=== PATIENT | female | born 1950 | race Caucasian/White ===

== ENCOUNTER 2021-02-17 08:22 | Inpatient (IN) ==
--- NOTE | 2021-02-13 13:48 | PAT Medication Instructions ---
Medication Instructions Date of Service February 13, 2021 Home Medications atenolol 25 mg tablet 25 mg PO BID famotidine 10 mg tablet (Acid Card Maker (famotidine)) 10 mg PO QAM levothyroxine 25 mcg capsule 12.5 mcg PO Q OTHER DAY lisinopril 5 mg tablet 5 mg PO QAM donepezil 5 mg tablet (Aricept) 5 mg PO QAM mirtazapine 15 mg tablet 15 mg PO HS simvastatin 20 mg tablet 20 mg PO PM Continue as directed levothyroxine 25 mcg capsule 12.5 mcg PO Q OTHER DAY DO NOT take the morning of surgery lisinopril 5 mg tablet 5 mg PO QAM Take morning of surgery With a small sip of water, OTHERWISE NOTHING TO EAT OR DRINK AFTER MIDNIGHT: atenolol 25 mg tablet 25 mg PO BID famotidine 10 mg tablet (Acid Card Maker (famotidine)) 10 mg PO QAM donepezil 5 mg tablet (Aricept) 5 mg PO QAM Take evening before surgery atenolol 25 mg tablet 25 mg PO BID mirtazapine 15 mg tablet 15 mg PO HS simvastatin 20 mg tablet 20 mg PO PM Other Notes If you have any questions please call us at [phone] or [phone] or [phone] or [phone]
--- NOTE | 2021-02-13 13:49 | Anesthesiology Consultation ---
Date of Service February 13, 2021 Assessment & Plan (1) Encounter for pre-operative examination: - Case discussed with Dr. Dempsey who advised attempts for patient to have echocardiogram done today if possible. Patient's made aware and states they are available this afternoon for echocardiogram. Juilo advised authorization for echocardiogram to be scheduled and per Kristi, no authorization needed for patient's insurance. Order form for 2D transthoracic echocardiogram placed with notation on urgent read given surgery scheduled for Wednesday02/17/2021. PCP office closed per answering service. - Dr. Dempsey made aware and advised if echocardiogram is not read by end of day will be reviewed Wednesday morning as surgery is at noon. Surgeon's office made aware. - check BSG am DOS. - will attempt to obtain most recent brain imaging, 01/2021 at [facility] per pt and pt's . - COVID screening: Per assessment on 02/13/2021: Travel screen negative, no known COVID-19 positive contacts or current COVID-19 related symptoms in past 2 weeks. Surgeon arranging preop COVID testing, scheduled 02/14/2021 [place]. Awaiting results. Chart Review Chart Review: Pending: Refer to Additional Notes / Consult section and Patient seen in Pre Admission Testing Teaching & Discussion Pre-Anesthesia Teaching/Discussion Notes: Instructed NPO after midnight before surgery, except medications with 15 cc of water. Medication instructions provided according to the PAT guidelines. History Surgery Operation Date: 02/17/21 12:00 Proposed Procedures p Right Robotic Hand Assisted Laparoscopic Nephrectomy - Parminder Figueroa, Height/Weight Height: 4 ft 11 in Weight: 62.7 kg Allergies Allergy/AdvReac Type Severity Reaction Status Date / Time No Known Allergies Allergy Verified 02/12/21 16:10 Medications Home Medications Medication Instructions Recorded Confirmed Last Taken atenolol 25 mg tablet 25 mg PO BID 01/16/21 02/12/21 Unknown famotidine 10 mg tablet (Acid 10 mg PO QAM 01/16/21 02/12/21 Unknown Senior Vice President & General Counsel (famotidine)) levothyroxine 25 mcg capsule 12.5 mcg PO Q OTHER DAY 01/16/21 02/12/21 Unknown lisinopril 5 mg tablet 5 mg PO QAM 01/16/21 02/12/21 Unknown donepezil 5 mg tablet (Aricept) 5 mg PO QAM 02/12/21 02/12/21 Unknown mirtazapine 15 mg tablet 15 mg PO HS 02/12/21 02/12/21 Unknown simvastatin 20 mg tablet 20 mg PO PM 02/12/21 02/12/21 Unknown Past Medical History Medical History (Updated 02/14/21 @ 08:53 by Sylvie Dykes PA-C) Anxiety and depression Borderline type 2 diabetes mellitus Cardiac murmur Pt and report chronic, deny any h/o previous echo; no available records Dementia History of CVA (cerebrovascular accident) incidental finding remote per neuro per pt's -- event unk to pt - no deficits History of esophageal dilatation History of skin cancer removed HLD (hyperlipidemia) HTN (hypertension) controlled, stable per pt and Hypothyroidism Poor short term memory Renal mass Scoliosis Patient denies h/o seizures, heart attack, heart failure, blood clots or blood transfusions. Exercise / Class Metabolic Activity II 4-5 Yardwork/Stairs/Walk up hill (denies CP or SOB with 1 FOS) Past Family History Family History Brother Hypertension Sister Cancer Breast Mother Cancer Breast Other No family history of adverse response to anesthesia Past Surgical History Surgical History (Updated 02/13/21 @ 16:06 by Sylvie Dykes PA-C) History of cataract surgery History of colonoscopy History of esophagogastroduodenoscopy (EGD) History of hysterectomy History of tonsillectomy Hx of cholecystectomy 2020 S/P fine needle aspiration thyroid Past Anesthesia History No Hx of Anesthesia Complications and No Family Hx of Anesthesia Complications History of PONV No Hx of Motion Sickness and History of PONV Social History Smoking Status: Never smoker Do You Dip or Chew Tobacco: No Hx Alcohol Use: No Hx Substance Use: No substance use type: does not use Review of Systems Occasional snoring, denies witnessed apneas or sleep studies. Patient denies chest pain, shortness of breath, dyspnea on exertion, reflux, fever, chills, cough, wheezing, or palpitations. Physical Exam Vital Signs Vitals BP 147/80 P 64 TEMP 98.3 SP02 97% on RA RESP 17 Physical Full cervical extension range of motion without pain Full TMJ range of motion TMD 3 finger breaths Mallampati Score 2 Dentition: intact, denies missing, loose or chipped teeth, implants or bridges Lungs: normal respiratory effort. Clear throughout to auscultation, no adventitious breath sounds Cardiac: regular rate and rhythm, grade 2/6 systolic murmur Carotid arteries: negative bruit bilat Extremities: no distal extremity edema Lab Results Anesthesia Preop Results Results Anesthesia Widget: WBC 8.24 K/uL (4.8-10.8) 02/13/21 Hgb 12.6 g/dL (12.0-16.0) 02/13/21 Hct 40.1 % (37-47) 02/13/21 Plt 370 K/uL (130-400) 02/13/21 Na 137 mmol/L (136-145) 02/13/21 K 4.1 mmol/L (3.5-5.1) 02/13/21 Cl 105 mmol/L (98-107) 02/13/21 CO2 28 mmol/L (21-32) 02/13/21 BUN 14 mg/dl (7-18) 02/13/21 Creat 0.81 mg/dl (0.6-1.2) 02/13/21 Glucose Level 92 mg/dl (70-99) 02/13/21 HA1c 5.6 % (4.5-5.6) 02/13/21 Urine Color Yellow 02/13/21 Urine Appearance Clear (Clear) 02/13/21 Urine pH 5.0 (4.5-7.5) 02/13/21 Urine Specific [place] 1.019 (1.000-1.030) 02/13/21 Urine Protein 1+ (Negative) H 02/13/21 Urine Glucose (UA) Negative (Negative) 02/13/21 Urine Ketones Trace (Negative) H 02/13/21 Urine Blood 3+ (Negative) H 02/13/21 Urine Nitrite Negative (Negative) 02/13/21 Urine Bilirubin Negative (Negative) 02/13/21 Urine Urobilinogen Negative (Negative) 02/13/21 Urine Leukocyte Esterase Trace (Negative) H 02/13/21 Urine WBC (Auto) >30 /hpf (0-5) H 02/13/21 Urine RBC (Auto) >30 /hpf (0-4) H 02/13/21 Urine Hyaline Casts (Auto) 5-10 /lpf (0-5) H 02/13/21 Urine Epithelial Cells (Auto) 20-30 /lpf (0-5) H 02/13/21 Urine Bacteria (Auto) Negative (Negative) 02/13/21 Blood Type A Positive 02/13/21 Antibody Screen NEGATIVE 02/13/21 Testing Electrocardiogram Date: 02/13/21 Normal sinus rhythm, rate 65 bpm. Right atrial enlargement. Chest X-Ray Date: 02/13/21 FINDINGS: No lines and tubes are seen. The cardiomediastinal silhouette is normal. The lungs are clear. No evidence of pleural effusion or pneumothorax. IMPRESSION: No acute chest disease.
[~2021-02-17 08:22] MED LIST: ceFAZolin 2000MG 2,000 MG/15 ML SYR IV SCH
[2021-02-17] MEDS ORDERED: MEPERIDINE HCL 25 MG/ML CARP/VIAL IV PRN (10:31)
[2021-02-17] MEDS ORDERED: ONDANSETRON INJ 2 MG/ML 2 ML VIAL IV PRN ×2 (10:31→16:35)
[2021-02-17] MEDS ORDERED: ATROPINE SULFATE 0.1 MG/ML 10ML SYR IV PRN (10:31)
[2021-02-17] MEDS ORDERED: HYDROmorphone INJ 1 MG/ML SYRINGE IV PRN (10:31)
[2021-02-17] MEDS ORDERED: fentaNYL citrate 100 MCG/2 ML VIAL IV PRN (10:31)
[2021-02-17] MEDS ORDERED: PHENYLEPHRINE 100MCG/ML 5ML SYR IV PRN (10:31)
[2021-02-17] MEDS ORDERED: ePHEDrine sulfate 50 MG/ML AMP IV PRN (10:31)
--- NOTE | 2021-02-17 10:50 | History & Physical Report ---
Date of Service February 17, 2021 Assessment & Plan (1) Renal mass: (2) Dementia: (3) History of CVA (cerebrovascular accident): (4) Borderline type 2 diabetes mellitus: Plan: Patient with a large renal mass found incidentally due to acute cholecystitis and choledocholithiasis. Patient had undergone treatment in November. Since then patient has been recovering from major intervention. Patient found to have large right renal mass on lower pole of right side. M easured 6.5 cm. Had been confirmed with CT imaging as well as well as an MRI which was able to visualize it during MRCP. Mass did appear to be near the perihilar fat in depth. Encompasses been largely the entire lower pole. No major issues or concerning features of left kidney. Patient and family consider different options. Risks and benefits discussed at length for procedure. These include bleeding, infection, injury to surrounding tissues or organs, and risks associated with anesthesia. Patient states understanding and agrees to proceed. Will sign consent and proc eed. Plan for robot-assisted laparoscopic partial nephrectomy versus radical nephrectomy. Patient will be observed/admitted overnight and monitored. Does have history of dementia issues with owning. We will need to monitor closely. History of Present Illness Primary Care Provider: Vijay Diaz MD Patient here for procedure. No changes in medical issues. No major changes in urinary issues. Continued issues and concerns. No change in pain or discomfort. No severe fevers or chills. No chest pain or shortness of breath. Risks and benefits discussed at length for procedure. These include bleeding, infection, injury to surrounding tissues or organs, and risks associated with anesthesia. Patient and/or family states understanding and agrees to proceed. Consent and supporting information completed. Allergies Allergy/AdvReac Type Severity Reaction Status Date / Time No Known Allergies Allergy Verified 02/17/21 08:47 Home Medications Medication Instructions Recorded Confirmed Type atenolol 25 mg tablet 25 mg PO BID 01/16/21 02/17/21 History famotidine 10 mg tablet (Acid 10 mg PO QAM 01/16/21 02/17/21 History Car Ferry Master (famotidine)) levothyroxine 25 mcg capsule 12.5 mcg PO Q OTHER DAY 01/16/21 02/17/21 History lisinopril 5 mg tablet 5 mg PO QAM 01/16/21 02/17/21 History donepezil 5 mg tablet (Aricept) 5 mg PO QAM 02/12/21 02/17/21 History mirtazapine 15 mg tablet 15 mg PO HS 02/12/21 02/17/21 History simvastatin 20 mg tablet 20 mg PO PM 02/12/21 02/17/21 History Past Med/Surg History Medical History (Updated 02/17/21 @ 10:48 by Parminder Figueroa DO) Anxiety and depression Borderline type 2 diabetes mellitus Cardiac murmur Pt and report chronic, deny any h/o previous echo; no available records Dementia History of CVA (cerebrovascular accident) incidental finding remote per neuro per pt's -- event unk to pt - no deficits History of esophageal dilatation History of skin cancer removed HLD (hyperlipidemia) HTN (hypertension) controlled, stable per pt and Hypothyroidism Poor short term memory Renal mass Scoliosis Surgical History History of cataract surgery History of colonoscopy History of esophagogastroduodenoscopy (EGD) History of hysterectomy History of tonsillectomy Hx of cholecystectomy 2020 S/P fine needle aspiration thyroid Family History Brother Hypertension Sister Cancer Breast Mother Cancer Breast Other No family history of adverse response to anesthesia Social History Smoking Status: Never smoker Second Hand Exposure: Yes (hx); Do You Dip or Chew Tobacco: No; Tobacco Cessation Education Requested by Patient: No Hx Alcohol Use: No Hx Substance Use: No Preferred Language: Canadian Communication Ability: Effective Pin Inserter Required: No Beliefs That Will Affect Care: None marital status: Current Living Situation: Spouse current occupational status: retired Feels Safe at Home: Yes Safety Concerns: Feels Safe At This Time Assistive Devices: None Review of Systems All systems reviewed & are unremarkable except as noted in HPI & below Physical Exam Physical Exam: General: Alert/Arousable. No Acute illness. Baseline memory issues with dementia. No exacerbation. Issues mainly become more significant at night. HEENT: Inspection normal. Normal inspection of face. Normal inspection of neck. Psychologic: Normal affect/No change in mentation. Respiratory: No use of accessory muscles. No respiratory changes or exacerbation or changes with tachypnea or dyspnea. Cardiovascular: No tachycardia Skin: [place] and Dry. No new rashes or visible lesions. Abdomen: Normal inspection. No guarding. Results & Data ([facility]) Vital Signs (Past 12 Hours) Vital Signs Temp Pulse Resp BP Pulse Ox 02/17/21 10:00 36.6 C 64 18 168/84 H 97 PG Care Time/CCT Total # of Minutes Spent Total Time Spent with Patient: Total time spent is greater than 50% in coordination of care (as documented) at patient's floor/unit and/or counseling patient: Coding Level of Care Code None Diagnoses Renal mass N28.89 Dementia F03.90 History of CVA (cerebrovascular accident) Z86.73 Borderline type 2 diabetes mellitus R73.03
[2021-02-17] MEDS ORDERED: fentaNYL citrate 100 MCG/2 ML VIAL ONE ×2 (10:54→12:36)
[2021-02-17] MEDS ORDERED: LARYING-O-JET KIT (LTA) ONE (10:54)
[2021-02-17] MEDS ORDERED: PROPOFOL IV EMULSION 10 MG/ML 20 ML VIAL IV ONE (10:54)
[2021-02-17] MEDS ORDERED: LIDOCAINE 2% 2 ML VIAL/AMP(20MG/ML) INFIL ONE (10:54)
[2021-02-17] MEDS ORDERED: MIDAZOLAM HCL 1 MG/ML 2ML VIAL ONE (10:54)
[2021-02-17] MEDS ORDERED: ACETAMINOPHEN 1000 MG/100 ML IV IV ONE (11:02)
[2021-02-17] MEDS ORDERED: BUPIVACAINE 0.5 % 5 MG/1 ML MPF 30ML VIAL ONE (11:32)
[2021-02-17] MEDS ORDERED: ROCURONIUM BROMIDE 10 MG/ML 5 ML VIAL IV ONE (12:25)
[2021-02-17] MEDS ORDERED: ePHEDrine sulfate 50 MG/ML SYR ONE (12:26)
[2021-02-17] MEDS ORDERED: ONDANSETRON INJ 2 MG/ML 2 ML VIAL ONE ×2 (12:26→14:32)
[2021-02-17] MEDS ORDERED: PHENYLEPHRINE 100MCG/ML 5ML SYR ONE (12:26)
[2021-02-17] MEDS ORDERED: DEXAMETHASONE SOD INJ 4 MG/ML VIAL ONE (12:26)
[2021-02-17] MEDS ORDERED: HYDROmorphone INJ 2 MG/ML SYR/VIAL ONE (12:35)
[2021-02-17] MEDS ORDERED: SURGICEL ABSORB HEMOSTAT 2IN X 14IN TOP ONE (13:45)
[2021-02-17] MEDS ORDERED: TISSEEL FIBRIN SEALANT 10ML TOP ONE (13:45)
[2021-02-17] MEDS ORDERED: NEOSTIGMINE METHYLSULFATE 1 MG/ML 10ML VIAL ONE (13:56)
[2021-02-17] MEDS ORDERED: GLYCOPYRROLATE 0.2 MG/ML VIAL ONE (13:56)
--- NOTE | 2021-02-17 14:49 | Operative Report ---
PG Post Operative Report Pre & Post Diagnosis Operation Date: 02/17/21 10:30 Pre-Op Diagnosis: Right Renal Mass Post-Op Diagnosis: Right Renal Mass I identified the patient and participated in the time-out.: Yes Procedure Operation Date: 02/17/21 10:30 Actual Procedures p Right Robotic Assisted Laparoscopic radical nephrectomy and extensive lysis of adhesions - Parminder Figueroa, Surgeon Parminder Figueroa, II, DO Weighter RAMAN Mullen Estimated Blood Loss 50 Findings Consistent with Post-Op Diagnosis Approximately 6.8 cm right lower pole renal mass. Tumor appears to penetrate down towards the hilar tissues and perihilar fat. Extensive adhesions of the right lateral wall largely coming from recent cholecystectomy Specimens Right radical kidney Drains 18 Fr Chavez Anesthesia Type General Complications none Disposition Disposition: Recovery Room Indications Patient with right renal mass suspicious for malignancy. Risks and benefits discussed at length. Description of Procedure The patient was brought to the operative suite and placed under general endotracheal intubation anesthesia in the supine position. The patient was transferred to lateral position with the right flank exposed. The patient was placed into a flex'ed position and then placed into mild reverse Trendelenberg. At this point, the patient prepped and draped in the usual sterile fashion and a timeout was completed. Preoperative weight based antibiotics had been given. KARLOS's and SCD's were placed on the patient's lower extremities. A catheter was placed by nursing using sterile technique. With the time out completed the patient was flexed and the skin was marked. The lateral port site was anesthetized. A small incision was made into the skin and subcutaneous tissues. A Varess needle was selected and placed. The needle was easily moved and it was irrigated and aspirated without any issues or concerns for placement. Insufflation commenced. The 8 mm camera port was placed. The abdominal cavity was further insufflated. The laparoscopic camera was placed and the abdominal cavity inspected. No concerning features were noted. At this point, the skin was marked for port placement and 8mm working ports were placed. The skin was anesthetized down to fascia and an approx 1cm incision was made to place the 3 x 8mm ports. Two 12 mm topographical field assistant ports were also placed in similar fashion under direct visualization. The robot was positioned and docked. The camera was placed and all trocars were positioned under direct visualization. A number of adhesions were lysed during the process as there was a large amount of adhesion to the anterior wall in the region of the liver. Likely from recent cholecystectomy. An extensive lysis was necessary throughout the entire process and greater than 25 minutes spent on lysing various adhesions throughout the right upper quadrant. At this point the inferior 8 mm robot port was converted to a 12 mm robotic port in order to allow utilization of the stapling device. Hazel Mullen was integral in port placement, camera utilization, and docking procedure. She also assisted during the extensive lysis of adhesions. She remained in sterile attire and then proceeded to assist the remainder of the case. The colon was mobilized medially to expose the retroperitoneum and the area assessed. Adhesions were freed to allow mobilization. A small amount of further adhesions were noted from the colon and were freed. These were dissected with b issac technique. Cautery was used to assist dissection and control bleeding. The retroperitoneal fat was assessed. Starting distally the retroperitoneum was dissected and care was taken to dissect down near the IVC. The gonadal vein and ureter were identified. This was then followed superiorly. Dissection stayed toward the midline along the IVC and the ureter and gonadal vein were followed up towards the renal hilum. The dissection was followed to the renal pelvis. The Renal Vein was identified and exposed. Dissection was taken further superior. The Renal Artery and Vein were then cleaned and exposed. Clamp/stapler placement was assessed and good access was achieved. The intraoperative ultrasound was utilized to further assess the mass. Due to the very large size and the depth of penetration as well as the involvement of the majority of the lower third to half of the kidney it was elected to proceed with radical nephrectomy. The Vessels were assessed a final time. The robotic assisted stapling device was then placed through the inferior port. The artery and vein were both assessed and had been isolated. 2 staple loads were then used to across the vessels in order to ligate the vessels. They were inspected after each ligation. No major bleeding or other areas concern. Excellent ligation and cutting was completed without major issue or concern. A final vascular load of areli was then used to ligate the inferior retroperitoneal fat and ureter. No bleeding or other areas concern were noted. At this point the kidney was completely dissected superiorly, inferiorly, posteriorly, and along the lateral edge. The kidney was completely mobilized and removed. The area was then copiously irrigated. The inferior edge of the liver was inspected. The retroperitoneum and psoas muscle was also inspected without areas concern or other issues. No obvious enlarged lymph nodes or other areas of concern. Hemostatic agent sheets were placed over the vessel stumps and on the liver edge. Hemostatic agents Tisseel was also placed. Hemostatic agent was also placed on the vessels. No major bleeding or other issues. The entire dissection space was inspected one final time. No bleeding or injuries or areas of concern were noted. No tumor or other concerning features were noted. At this point, the robot was undocked and moved away from the patient. The port sites were all assessed laparoscopically. . The superior 12mm port sites were closed with the Damian-Garcia device and were closed with Vicryl suture. The other ports were assessed and no issues observed. The inferior/lateral 12 mm robotic port was opened further exposing fascia which was then opened in order to removed the mass/kidney. The opening was then further dissected free in order to allow complete access. The fascial layers were lysed and the peritoneal space assessed. The kidney was grasped and removed. It was sent for pathological analysis. The area was then flushed. The fascial edges were grasped and isolated. A PDS suture was used to close fascia. The skin at each site was closed with a stapling device. The area was cleaned and bandages placed on each incision. The patient was cleaned and bandaged. The patient was moved back into the supine position The patient was cleaned, aroused from anesthesia, and transferred to the pacu in stable condition having tolerated the procedure well with no complications. I was present and participated in all aspects of the procedure. RAMAN Castro was critical in the portions as mentioned above. Plan to observe overnight. Will await results of pathology and discuss findings as well as neck steps. May need to involve nephrology during postoperative process in order to further assess and monitor patient's renal function after radical nephrectomy. I attest to the content of the Intraoperative Record and any orders documented therein. Any exceptions are noted below.
[2021-02-17 15:10] LABS: Basophils # (auto) 0.03 K/uL (0-0.2); Basophils % (auto) 0.2 %; Eosinophils # (auto) 0.06 K/uL (0-0.5); Eosinophils % (auto) 0.4 %; Hematocrit (blood only) 39.6 % (37-47); Hemoglobin 12.6 g/dL (12.0-16.0); Immature Granulocytes # (auto) 0.04 K/uL (0.00-0.02); Immature Granulocytes % (auto) 0.3 %; Lymphocytes # (auto) 0.84 K/uL (1.2-3.4); Lymphocytes % (auto) 5.7 %; Mean Corpuscular Hemoglobin 27.9 pg (25-34); Mean Corpuscular Volume 87.8 fL (80-100); Mean Platelet Volume 8.5 fL (7.4-10.4); Monocytes # (auto) 0.67 K/uL (0.11-0.59); Monocytes % (auto) 4.5 %; Neutrophils # (auto) 13.22 K/uL (1.4-6.5); Neutrophils % (auto) 88.9 %; Platelet Count 270 K/uL (130-400); RDW Coefficient of Variation 13.3 % (11.5-14.5); RDW Standard Deviation 43.1 fL (36.4-46.3); Red Blood Count 4.51 M/uL (4.2-5.4); White Blood Count 14.86 K/uL (4.8-10.8)
[2021-02-17 15:11] LABS: Mean Corpuscular Hgb Conc 31.8 g/dL (32-36)
[2021-02-17] MEDS: LABETALOL HCL IV 5 MG/ML 20ML IV PRN ×3 (15:11→15:26)
[2021-02-17 15:30] LABS: BUN Creatinine Ratio 13.4 (10-20); Calcium 9.2 mg/dl (8.5-10.1); Creatinine Clr Calc Pharmacy 44.7 ml/min; Est GFR (African American) 69.8 ml/min; Est GFR (Non-African American) 60.3 ml/min; Potassium 3.8 mmol/L (3.5-5.1)
--- NOTE | 2021-02-17 16:32 | Anesthesiology Progress Note ---
Date of Service February 17, 2021 Anesthesia Post Procedure Vital Signs Vital Signs: Temp Pulse Pulse Resp BP BP Pulse Ox 02/17/21 16:15 36.3 C L 71 19 177/89 H 100 02/17/21 16:05 72 21 181/86 H 100 02/17/21 15:55 74 22 175/82 H 91 02/17/21 15:45 77 20 172/81 H 93 02/17/21 15:35 84 21 164/89 H 94 02/17/21 15:25 84 12 164/82 H 95 02/17/21 15:15 78 21 164/88 H 100 02/17/21 15:05 76 20 191/92 H 100 02/17/21 14:55 36.1 C L 80 14 182/98 H 98 02/17/21 10:00 36.6 C 64 18 168/84 H 97 Transfer of Care Handoff Completed per policy Notes Mental Status: alert / awake / arousable Patient Amnestic to Procedure: Yes Nausea / Vomiting: adequately controlled Pain: adequately controlled Airway Patency, RR, SpO2: stable & adequate BP & HR: stable & adequate Hydration State: stable & adequate Anesthetic Complications: no major complications apparent and Pt Satisfied with anesthetic care Notes: The patient is awake and comfortable. Her vitals are stable at her baseline.
[2021-02-17] MEDS ORDERED: MoRPHine SULFATE 2 MG/ML CARP IV PRN (16:35)
[2021-02-17] MEDS ORDERED: ACETAMINOPHEN 325 MG TAB PO PRN (16:35)
[2021-02-17] MEDS ORDERED: oxyCODONE HCL IR 5 MG TAB (IMMEDIATE RELEASE) PO PRN ×2 (16:35)
[2021-02-17] MEDS: LACTATED RINGER'S 1,000 ML IV SCH (16:59)
--- NOTE | 2021-02-17 17:02 | Hospitalist Consultation ---
Date of Consultation February 17, 2021 Assessment & Plan (1) Renal mass: Found incidentally while being tx for acute ivonne w/ CBD obstruction at [facility]. No prior known renal mass, personal or family hx renal ca, weight loss/night sweats/etc or hematuria prior to admission known POD 0 s/p Right Robotic Assisted Laparoscopic radical nephrectomy and extensive lysis of adhesions - Parminder Figueroa DO. . Pathology pending Per report, 6.8cm right lower pole renal mass with extensive adhesions of right lateral wall from recent cholecystectomy. May need consultation with nephrology to monitor patient's renal function after radical nephrectomy per Urology EBL 50cc Pre-op h/h 12.6/40.1 LR @100cc/hr Cefazolin per primary service Pain management/bowel regimen/PT/OT/DVT prophylaxis per primary service --> asked RN to administer 2mg morphine x 1 now Labs in AM (2) Hypertension: BP elevated, likely 2nd to pain from surgery On lisinopril 5mg daily -- will hold and plan to resume in AM if Cr/BP stable Hydralazine available prn Monitor (3) High cholesterol: Continue Simvastatin 20mg HS (4) History of CVA (cerebrovascular accident): incidental finding remote per neuro per pt's -- Not on ASA?/Plavix, no deficits poor short term memory - on donepezil 5mg daily ECHO done pre-op for murmur on examination --> LV ventricular systolic function normal. No regional wma, EF 55-60%. Mild MR, TR. No prior study for comparison To have f/u [facility] for repeat brain MRI per Continues on simvastatin 20mg, atenolol 25mg BID --> No prior recs for ASA daily but did discuss would recommend daily for prevention as no prior source found. They are to have repeat brain MRI/follow up with Neuro the beginning of this year but switching to new provider as prior Dr Galvez left and they are to see someone else (5) Hypothyroidism: Continue levothyroxine "1/2 tablet every other day" Continue as taking at home, 12.5mcg QOD (6) GERD (gastroesophageal reflux disease): hx esophageal dilation continue famotidine 10mg daily no issues with swallowing currently reported (7) Borderline type 2 diabetes mellitus: A1c 5.6 on pre-admission testing -- per patient and previous value was 5.9 and they have been monitoring diet/adjustments and remains without medications continued monitoring overnight hospitalist service will follow along Supervising Physician Co-Signing Physician Notes PA Supervision Note: I personally saw and examined the patient. I verified all valverde points and agree with JAK Diop with the following exceptions and/or additions: S-Pt feeling nauseated and received ZOfran one hour prior. Some mild abd pain. No other complaints. Very pleasant History and ROS reviewed as above O- Vitals reviewed Gen: [AAOx2, NAD] HEENT: [anicteric sclerae, EOMI] CV: [RRR no mgr nl S1S2] Pulm: [CTAB no wcr] Abd: [+BS soft mild TTP over incision sites, dressings c/d/i,ND no masses or hernias] Ext: [no edema] Skin: [no rashes, warm/dry] Neuro: [full strength throughout] A/P-70 yo female with a h/o Hypothyroidism, HL, dementia, CVA< GERD, DM2, here for right radical nephrectomy. Plan outlined as above -add on compazine 10mg IV q6h prn nausea not responding to Zofran History of Present Illness Reason for Consultation: medical management, dementia Requesting Physician: Dr Figueroa Attending Physician: Parminder Figueroa, II, DO History of Present Illness 70yo female presented for R robotic nephrectomy with Dr. Figueroa. Patient ( at bedside) evaluated in room 383-1 post-operatively. Just got dose of morphine 1mg and states it did help with pain temporarily but not a lot and wore off quickly. Discussed will ask RN to administer increased dose x 1 and monitor response. Pain to her right side/flank as well as abdomen. Moved her bowels this morning prior to surgery but has not had much real food since Wednesday prior to needing to remain on clear liquids for upcoming surgery. stated patient was having abdominal pain/n/v and found to have acute ivonne with CBD obstruction and waited in [facility] for several days before family member who is medical provider was able to get patient transferred to [facility] for medical care/treatment of obstruction and cholecystectomy. This was in December 2020 and stated that is when they found the "golf ball" size mass on the right kidney. No unexplained weight loss, family history of renal ca or hematuria reported. Per , patient with significant short term memory issues. Has had work-up in past and seen by a Neurologist in [place] and was told MRI done for Alzhiemer work up negative for evidence of Alzheimer but noted patient with prior CVA "old stroke". Was not instructed to take ASA 81mg or plavix or other, and was to have repeat brain MRI and follow up with new Neurologist this year but has yet to be done. Remains on Aricept. Per patient no previous issues with sundowning during prior admissions, however patient will not remember events of today or that she had surgery when she wakes up in the morning. Per , no issues with fci memory. Pathology pending to determine next steps. Discussed ASA 81mg daily for prevention given prior CVA but will wait until bleeding ensured to be stopped prior to initiating. No fever, chills, chest pain, shortness of breath, nausea, vomiting, headache or other symptoms at this time. 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)) levothyroxine 25 mcg capsule 12.5 mcg PO Q OTHER DAY 01/16/21 02/17/21 History lisinopril 5 mg tablet 5 mg PO QAM 01/16/21 02/17/21 History donepezil 5 mg tablet (Aricept) 5 mg PO QAM 02/12/21 02/17/21 History mirtazapine 15 mg tablet 15 mg PO HS 02/12/21 02/17/21 History simvastatin 20 mg tablet 20 mg PO PM 02/12/21 02/17/21 History Patient History Medical History Anxiety and depression Borderline type 2 diabetes mellitus Cardiac murmur Pt and report chronic, deny any h/o previous echo; no available records Dementia History of CVA (cerebrovascular accident) incidental finding remote per neuro per pt's -- event unk to pt - no deficits History of esophageal dilatation History of skin cancer removed HLD (hyperlipidemia) HTN (hypertension) controlled, stable per pt and Hypothyroidism Poor short term memory Renal mass Scoliosis Surgical History History of cataract surgery History of colonoscopy History of esophagogastroduodenoscopy (EGD) History of hysterectomy History of tonsillectomy Hx of cholecystectomy 2020 S/P fine needle aspiration thyroid Family History Brother Hypertension Sister Cancer Breast Mother Cancer Breast Other No family history of adverse response to anesthesia Social History Smoking Status: Never smoker Second Hand Exposure: Yes (hx); Do You Dip or Chew Tobacco: No; Tobacco Cessation Education Requested by Patient: No Hx Alcohol Use: No Hx Substance Use: No Preferred Language: Slovenian Communication Ability: Effective Return To Vendor Required: No Beliefs That Will Affect Care: None marital status: Current Living Situation: Spouse current occupational status: retired Feels Safe at Home: Yes Safety Concerns: Feels Safe At This Time Assistive Devices: None Review of Systems Review of Systems: All systems reviewed & are unremarkable except as noted in HPI & below Physical Exam Physical Exam: WD, WN female resting in bed, under warming blanket, no acute distress but does appear uncomfortable and not wanting to move around due to abdominal discomfort Eyes anicteric, pupils equal trachea midline without deviation, slightly dry mm resp: ctab, no w/c/r, on 2L NC cv: RRR, +murmur, no edema/calf tenderness, cap refill <3 seconds, no JVD, no bruit appreciated abd: prior lap ivonne incisions, healing well, currently with several 4x4 over current incisions, c/d/i gu; palomares patent and draining psych: alert, oriented to person, place, time neuro: no focal deficit, moves all extremities, no facial droop, answering questions appropriately Results & Data Results & Data ([facility]) Vital Signs (Past 12 Hours) Vital Signs Temp Pulse Pulse Pulse Resp BP BP 02/17/21 16:30 36.3 C L 70 18 178/90 H 02/17/21 16:15 36.3 C L 71 19 177/89 H 02/17/21 16:05 72 21 181/86 H 02/17/21 15:55 74 22 175/82 H 02/17/21 15:45 77 20 172/81 H 02/17/21 15:35 84 21 164/89 H 02/17/21 15:25 84 12 164/82 H 02/17/21 15:15 78 21 164/88 H 02/17/21 15:05 76 20 191/92 H 02/17/21 14:55 36.1 C L 80 14 182/98 H 02/17/21 10:00 36.6 C 64 18 168/84 H Pulse Ox 02/17/21 16:30 99 02/17/21 16:15 100 02/17/21 16:05 100 02/17/21 15:55 91 02/17/21 15:45 93 02/17/21 15:35 94 02/17/21 15:25 95 02/17/21 15:15 100 02/17/21 15:05 100 02/17/21 14:55 98 02/17/21 10:00 97 Laboratory Results 02/17/21 02/17/21 02/17/21 Range/Units Unknown 14:59 14:59 WBC 14.86 H (4.8-10.8) K/uL RBC 4.51 (4.2-5.4) M/uL Hgb 12.6 (12.0-16.0) g/dL Hct 39.6 (37-47) % MCV 87.8 (80-100) fL MCH 27.9 (25-34) pg MCHC 31.8 L (32-36) g/dL RDW Std Deviation 43.1 (36.4-46.3) fL RDW Coeff of Dez 13.3 (11.5-14.5) % Plt Count 270 (130-400) K/uL MPV 8.5 (7.4-10.4) fL Immature Gran % (Auto) 0.3 % Neut % (Auto) 88.9 % Lymph % (Auto) 5.7 % [place] % (Auto) 4.5 % Eos % (Auto) 0.4 % Baso % (Auto) 0.2 % Neut # (Auto) 13.22 H (1.4-6.5) K/uL Lymph # (Auto) 0.84 L (1.2-3.4) K/uL [place] # (Auto) 0.67 H (0.11-0.59) K/uL Eos # (Auto) 0.06 (0-0.5) K/uL Baso # (Auto) 0.03 (0-0.2) K/uL Immature Gran # (Auto) 0.04 H (0.00-0.02) K/uL Sodium 137 (136-145) mmol/L Potassium 3.8 (3.5-5.1) mmol/L Chloride 106 (98-107) mmol/L Carbon Dioxide 27 (21-32) mmol/L Anion Gap 4.0 (3-11) BUN 13 (7-18) mg/dl Creatinine 0.95 (0.6-1.2) mg/dl Est Cr Clr Drug Dosing 44.7 ml/min Est GFR ( Amer) 69.8 ml/min Est GFR (Non-Af Amer) 60.3 ml/min BUN/Creatinine Ratio 13.4 (10-20) Glucose 172 H (70-99) mg/dl POC Glucose (70-99) mg/dl Calcium 9.2 (8.5-10.1) mg/dl SARS-CoV-2, RNA, NAAT NEGATIVE (NEGATIVE) Blood Type Antibody Screen 02/17/21 02/17/21 Range/Units 09:57 09:23 WBC (4.8-10.8) K/uL RBC (4.2-5.4) M/uL Hgb (12.0-16.0) g/dL Hct (37-47) % MCV (80-100) fL MCH (25-34) pg MCHC (32-36) g/dL RDW Std Deviation (36.4-46.3) fL RDW Coeff of Dez (11.5-14.5) % Plt Count (130-400) K/uL MPV (7.4-10.4) fL Immature Gran % (Auto) % Neut % (Auto) % Lymph % (Auto) % [place] % (Auto) % Eos % (Auto) % Baso % (Auto) % Neut # (Auto) (1.4-6.5) K/uL Lymph # (Auto) (1.2-3.4) K/uL [place] # (Auto) (0.11-0.59) K/uL Eos # (Auto) (0-0.5) K/uL Baso # (Auto) (0-0.2) K/uL Immature Gran # (Auto) (0.00-0.02) K/uL Sodium (136-145) mmol/L Potassium (3.5-5.1) mmol/L Chloride (98-107) mmol/L Carbon Dioxide (21-32) mmol/L Anion Gap (3-11) BUN (7-18) mg/dl Creatinine (0.6-1.2) mg/dl Est Cr Clr Drug Dosing ml/min Est GFR ( Amer) ml/min Est GFR (Non-Af Amer) ml/min BUN/Creatinine Ratio (10-20) Glucose (70-99) mg/dl POC Glucose 104 H (70-99) mg/dl Calcium (8.5-10.1) mg/dl SARS-CoV-2, RNA, NAAT (NEGATIVE) Blood Type A Positive Antibody Screen NEGATIVE PG Care Time/CCT Total # of Minutes Spent Total Time Spent with Patient: Total time spent is greater than 50% in coordination of care (as documented) at patient's floor/unit and/or counseling patient: Coding Level of Care Code 07599 Inpt Consult Level 3 Diagnoses History of CVA (cerebrovascular accident) Z86.73 Borderline type 2 diabetes mellitus R73.03 Hypertension I10 High cholesterol E78.00 Renal mass N28.89 Hypothyroidism E03.9 GERD (gastroesophageal reflux disease) K21.9
[2021-02-17] MEDS ORDERED: INFLUENZA VACCINE HIGH DOSE PF 65+ 0.7 ML SYR IM ONE (17:07)
[2021-02-17] MEDS: MoRPHine SULFATE 4 MG/ML 1 ML CARP\\VIAL IV PRN ×2 (17:29→22:09)
[2021-02-17] MEDS ORDERED: hydrALAZINE HCL 20 MG/ML VIAL IV PRN (17:33)
[2021-02-17] MEDS ORDERED: PROCHLORPERAZINE 10 MG in SYRINGE 8 ML IV PRN (20:26)
[2021-02-17] MEDS: ceFAZolin 2000MG 2,000 MG/15 ML SYR IV SCH (20:38)
[2021-02-17] MEDS ORDERED: SIMVASTATIN 20 MG TAB PO SCH (21:00)
[2021-02-17] MEDS ORDERED: MIRTAZAPINE TAB 15 MG TAB PO SCH (21:00)
[2021-02-17] MEDS: ATENOLOL 25 MG TABLET PO SCH (22:06)
[2021-02-18] MEDS ORDERED: MoRPHine SULFATE 2 MG/ML CARP IV PRN (02:09)
[2021-02-18] MEDS: LACTATED RINGER'S 1,000 ML IV SCH (02:39)
[2021-02-18] MEDS: ceFAZolin 2000MG 2,000 MG/15 ML SYR IV SCH (04:18)
[2021-02-18 08:27] LABS: Basophils # (auto) 0.01 K/uL (0-0.2); Basophils % (auto) 0.1 %; Hematocrit (blood only) 36.6 % (37-47); Hemoglobin 11.7 g/dL (12.0-16.0); Immature Granulocytes # (auto) 0.02 K/uL (0.00-0.02); Immature Granulocytes % (auto) 0.2 %; Lymphocytes % (auto) 11.1 %; Mean Corpuscular Hemoglobin 28.3 pg (25-34); Mean Corpuscular Volume 88.6 fL (80-100); Mean Platelet Volume 8.5 fL (7.4-10.4); Monocytes # (auto) 1.21 K/uL (0.11-0.59); Monocytes % (auto) 11.2 %; Neutrophils # (auto) 8.34 K/uL (1.4-6.5); Neutrophils % (auto) 77.4 %; Platelet Count 320 K/uL (130-400); RDW Coefficient of Variation 13.4 % (11.5-14.5); RDW Standard Deviation 43.9 fL (36.4-46.3); Red Blood Count 4.13 M/uL (4.2-5.4); White Blood Count 10.78 K/uL (4.8-10.8)
--- NOTE | 2021-02-18 08:38 | Hospitalist Progress Note ---
Date of Service February 18, 2021 Assessment & Plan (1) Renal mass: Plan: Found incidentally while being tx for acute ivonne w/ CBD obstruction at [place]. No prior known renal mass, personal or family hx renal ca, weight loss/night sweats/etc or hematuria prior to admission known POD 1 s/p Right Robotic Assisted Laparoscopic radical nephrectomy and extensive lysis of adhesions - Parminder Figueroa DO. . Pathology pending Per report, 6.8cm right lower pole renal mass with extensive adhesions of right lateral wall from recent cholecystectomy. May need consultation with nephrology to monitor patient's renal function after radical nephrectomy per Urology EBL 50cc Pre-op h/h 12.6/40.1 --> H/h 11.7/36.6 -- acute anemia from blood loss and dilutional from IVF as has been on LR @ 100cc/hr since surgery. BMP from this AM pending Cefazolin per primary service Pain management/bowel regimen/PT/OT/DVT prophylaxis per primary service --> Morphine 2mg x 3 doses thus far utilized. encouraged oral option -----------> She is VASTLY improved pain anderson --> Compazine added last evening for nausea despite zofran --1 dose used --> Added miralax, senna/docusate to prevent constipation given opiates and patient had not yet out of bed last evening due to pain. Since then, has been up/ambulating. Transition to oral pain control. +BS and encouraged continued ambulation --> Messaged SENIOR WEB DEVELOPER last evening and they will discuss chemical DVT prophylaxis today -- Heparin SQ ordered Continue to monitor (2) Hypertension: Plan: BP currently much better at 125/71, elevations prior likely 2nd to pain On lisinopril 5mg daily -- hold today as Cr 1.25 and can resume in AM Hydralazine available prn Monitor (3) High cholesterol: Plan: Continue Simvastatin 20mg HS -- refused last evening (4) History of CVA (cerebrovascular accident): Plan: incidental finding remote per neuro per pt's -- Not on ASA?/Plavix, no deficits poor short term memory - on donepezil 5mg daily ECHO done pre-op for murmur on examination --> LV ventricular systolic function normal. No regional wma, EF 55-60%. Mild MR, TR. No prior study for comparison To have f/u [facility] for repeat brain MRI per Continues on simvastatin 20mg, atenolol 25mg BID --> No prior recs for ASA daily but did discuss would recommend daily for prevention as no prior source found after they have follow up with Neurology. No prior recs, so unsure if reason they did not recommend this. They are to have repeat brain MRI/follow up with Neuro the beginning of this year but switching to new provider as prior Dr Galvez left and they are to see someone else (5) Hypothyroidism: Plan: Continue levothyroxine "1/2 tablet every other day". TSH wnl Continue as taking at home, 12.5mcg QOD (6) GERD (gastroesophageal reflux disease): Plan: hx esophageal dilation continue famotidine 10mg daily no issues with swallowing currently reported and tolerated breakfast without issue (7) Borderline type 2 diabetes mellitus: Plan: A1c 5.6 on pre-admission testing -- per patient and previous value was 5.9 and they have been monitoring diet/adjustments and remains without medications Plan: palomares d/c this AM, urology monitoring for void encourage PO pain control if needed and continued ambulation bowel regimen at d/c if continues pain control to prevent constipation. does have +BS Hospitalist service will sign off. Please call with questions/concerns. Instructed patient to hold lisinopril today and can resume in AM. F/u Neuro at d/c as previously arranging for repeat imaging/discussion about ASA for prevention Admission and Anticipated Discharge Date Admission Date: February 17, 2021 Supervising Physician Co-Signing Physician Notes PA Supervision Note: I did not personally see or examine the patient today, but I verified all valverde points of JAK Diop's assessment and plan with the following exceptions/additions: None Subjective patient evaluated this morning. getting up out of bed to sit in chair. pain MUCH improved and she ate breakfast. no nausea or feeling like she needs to vomit. no fever, chills, chest pain, shortness of breath. hopeful for d/c home once able to come get her -- will discuss with Urology. Would rec holding her lisinopril and restart tomorrow. Discussed would rec starting ASA 81mg after discussion/follow up with Neurology as they have arranged for next 1-2 months. Review of Systems Review of Systems: All systems reviewed & are unremarkable except as noted in HPI & below Physical Exam Physical Exam: WD, WN getting up out of bed to sit in chair, no acute distress, appears comfortable AOx2, intermittent to time Eyes anicteric, pupils equal trachea midline without deviation, mmm resp: ctab, no w/c/r, on room air cv: RRR, +murmur, no edema/calf tenderness, cap refill <3 seconds, no JVD, no bruit appreciated abd: +BS throughout, +appropriately tender to palpation, incisions covered/dressing c/d/i gu; palomares patent and draining psych: alert, oriented to person, place, time neuro: no focal deficit, moves all extremities, no facial droop, answering questions appropriately Results & Data Results & Data ([facility]) Vital Signs (Past 12 Hours) Vital Signs Temp Pulse Pulse Resp BP Pulse Ox 02/18/21 07:08 36.8 C 71 16 125/71 94 02/18/21 02:53 36.6 C 79 16 144/83 H 91 02/17/21 22:29 36.3 C L 77 16 116/75 97 Laboratory Results 02/18/21 02/18/21 02/18/21 Range/Units 08:13 08:13 08:13 WBC 10.78 (4.8-10.8) K/uL RBC 4.13 L (4.2-5.4) M/uL Hgb 11.7 L (12.0-16.0) g/dL Hct 36.6 L (37-47) % MCV 88.6 (80-100) fL MCH 28.3 (25-34) pg MCHC 32.0 (32-36) g/dL RDW Std Deviation 43.9 (36.4-46.3) fL RDW Coeff of Dez 13.4 (11.5-14.5) % Plt Count 320 (130-400) K/uL MPV 8.5 (7.4-10.4) fL Immature Gran % (Auto) 0.2 % Neut % (Auto) 77.4 % Lymph % (Auto) 11.1 % [place] % (Auto) 11.2 % Eos % (Auto) 0.0 % Baso % (Auto) 0.1 % Neut # (Auto) 8.34 H (1.4-6.5) K/uL Lymph # (Auto) 1.20 (1.2-3.4) K/uL [place] # (Auto) 1.21 H (0.11-0.59) K/uL Eos # (Auto) 0.00 (0-0.5) K/uL Baso # (Auto) 0.01 (0-0.2) K/uL Immature Gran # (Auto) 0.02 (0.00-0.02) K/uL Sodium 136 (136-145) mmol/L Potassium 4.1 (3.5-5.1) mmol/L Chloride 105 (98-107) mmol/L Carbon Dioxide 28 (21-32) mmol/L Anion Gap 3.0 (3-11) BUN 13 (7-18) mg/dl Creatinine 1.25 H D (0.6-1.2) mg/dl Est Cr Clr Drug Dosing 34.0 ml/min Est GFR ( Amer) 50.1 ml/min Est GFR (Non-Af Amer) 43.2 ml/min BUN/Creatinine Ratio 10.8 (10-20) Glucose 128 H (70-99) mg/dl POC Glucose (70-99) mg/dl Calcium 9.3 (8.5-10.1) mg/dl Vitamin B12 438 (193-986) pg/ml TSH 1.250 (0.300-4.500) uIu/ml Blood Type Antibody Screen 02/17/21 02/17/21 02/17/21 Range/Units 14:59 14:59 09:57 WBC 14.86 H (4.8-10.8) K/uL RBC 4.51 (4.2-5.4) M/uL Hgb 12.6 (12.0-16.0) g/dL Hct 39.6 (37-47) % MCV 87.8 (80-100) fL MCH 27.9 (25-34) pg MCHC 31.8 L (32-36) g/dL RDW Std Deviation 43.1 (36.4-46.3) fL RDW Coeff of Dez 13.3 (11.5-14.5) % Plt Count 270 (130-400) K/uL MPV 8.5 (7.4-10.4) fL Immature Gran % (Auto) 0.3 % Neut % (Auto) 88.9 % Lymph % (Auto) 5.7 % [place] % (Auto) 4.5 % Eos % (Auto) 0.4 % Baso % (Auto) 0.2 % Neut # (Auto) 13.22 H (1.4-6.5) K/uL Lymph # (Auto) 0.84 L (1.2-3.4) K/uL [place] # (Auto) 0.67 H (0.11-0.59) K/uL Eos # (Auto) 0.06 (0-0.5) K/uL Baso # (Auto) 0.03 (0-0.2) K/uL Immature Gran # (Auto) 0.04 H (0.00-0.02) K/uL Sodium 137 (136-145) mmol/L Potassium 3.8 (3.5-5.1) mmol/L Chloride 106 (98-107) mmol/L Carbon Dioxide 27 (21-32) mmol/L Anion Gap 4.0 (3-11) BUN 13 (7-18) mg/dl Creatinine 0.95 (0.6-1.2) mg/dl Est Cr Clr Drug Dosing 44.7 ml/min Est GFR ( Amer) 69.8 ml/min Est GFR (Non-Af Amer) 60.3 ml/min BUN/Creatinine Ratio 13.4 (10-20) Glucose 172 H (70-99) mg/dl POC Glucose 104 H (70-99) mg/dl Calcium 9.2 (8.5-10.1) mg/dl Vitamin B12 (193-986) pg/ml TSH (0.300-4.500) uIu/ml Blood Type Antibody Screen 02/17/21 Range/Units 09:23 WBC (4.8-10.8) K/uL RBC (4.2-5.4) M/uL Hgb (12.0-16.0) g/dL Hct (37-47) % MCV (80-100) fL MCH (25-34) pg MCHC (32-36) g/dL RDW Std Deviation (36.4-46.3) fL RDW Coeff of Dez (11.5-14.5) % Plt Count (130-400) K/uL MPV (7.4-10.4) fL Immature Gran % (Auto) % Neut % (Auto) % Lymph % (Auto) % [place] % (Auto) % Eos % (Auto) % Baso % (Auto) % Neut # (Auto) (1.4-6.5) K/uL Lymph # (Auto) (1.2-3.4) K/uL [place] # (Auto) (0.11-0.59) K/uL Eos # (Auto) (0-0.5) K/uL Baso # (Auto) (0-0.2) K/uL Immature Gran # (Auto) (0.00-0.02) K/uL Sodium (136-145) mmol/L Potassium (3.5-5.1) mmol/L Chloride (98-107) mmol/L Carbon Dioxide (21-32) mmol/L Anion Gap (3-11) BUN (7-18) mg/dl Creatinine (0.6-1.2) mg/dl Est Cr Clr Drug Dosing ml/min Est GFR ( Amer) ml/min Est GFR (Non-Af Amer) ml/min BUN/Creatinine Ratio (10-20) Glucose (70-99) mg/dl POC Glucose (70-99) mg/dl Calcium (8.5-10.1) mg/dl Vitamin B12 (193-986) pg/ml TSH (0.300-4.500) uIu/ml Blood Type A Positive Antibody Screen NEGATIVE PG Care Time/CCT Total # of Minutes Spent Total Time Spent with Patient: Total time spent is greater than 50% in coordination of care (as documented) at patient's floor/unit and/or counseling patient: Coding Level of Care Code 00849 Subseq Hosp Care Lvl 2 Diagnoses Renal mass N28.89 Hypertension I10 High cholesterol E78.00 History of CVA (cerebrovascular accident) Z86.73 Hypothyroidism E03.9 GERD (gastroesophageal reflux disease) K21.9 Borderline type 2 diabetes mellitus R73.03
[2021-02-18 09:00] LABS: BUN Creatinine Ratio 10.8 (10-20); Calcium 9.3 mg/dl (8.5-10.1); Est GFR (African American) 50.1 ml/min; Est GFR (Non-African American) 43.2 ml/min; Potassium 4.1 mmol/L (3.5-5.1)
[2021-02-18] MEDS ORDERED: HEPARIN SOD 5,000 UNIT/0.5 ML VIAL SQ SCH (09:00)
[2021-02-18] MEDS ORDERED: POLYETHYLENE (MIRALAX) 17 GM PACK PO SCH (09:00)
[2021-02-18] MEDS ORDERED: lisinopril 5 MG TAB PO SCH (09:00)
[2021-02-18] MEDS ORDERED: DONEPEZIL HCL 5 MG TAB PO SCH (09:00)
[2021-02-18] MEDS ORDERED: DOCUSATE SODIUM/SENNA 50/8.6MG TAB PO SCH (09:00)
[2021-02-18] MEDS ORDERED: FAMOTIDINE 10 MG TABLET PO SCH (09:00)
[2021-02-18 09:10] LABS: Thyroid Stimulating Hormone 1.25 uIu/ml (0.300-4.500)
--- NOTE | 2021-02-18 09:14 | Urology Progress Note ---
Date of Service February 18, 2021 Assessment & Plan (1) Renal mass: Plan: 70 yo F POD #1 s/p Right Robotic Assisted Laparoscopic radical nephrectomy and extensive lysis of adhesions with Dr. Figueroa. - Doing well, progressing as expected - Afebrile, lab work reviewed - creatinine increased to 1.25 as expected post-op nephrectomy, WBC 10.78, Hgb 11.7 - Pain is tolerable, currently utilizing IV morphine - recommend transition to PO analgesia today - Surgical dressings removed this AM - incisions appropriate - Tolerating clear liquid diet - will advance diet for lunch, discontinue IV fluids this AM - D/C Chavez catheter this morning, monitor for void - Heparin ordered this AM for DVT ppx per Dr. Figueroa - Encouraged OOB ambulation - Anticipate home later today if she continues to progress - Expected clinical course reviewed, all questions answered Admission and Anticipated Discharge Date Admission Date: February 17, 2021 Subjective Patient seen and examined at bedside this AM. She is awake, alert and sitting up in bedside chair eating breakfast. No acute issues overnight. Reports abdominal/incisional pain, currently mild and tolerable, utilizing IV Morphine with good relief. Tolerating clear liquid diet. Chavez in place, patent and draining clear yellow urine. Nausea last night, no nausea or vomiting at present. No fever or chills. Offers no additional complaints at this time. Review of Systems Constitutional: as per Subjective / HPI Gastrointestinal: as per Subjective / HPI Genitourinary: as per Subjective / HPI Physical Exam Constitutional: well developed and well nourished; no acute distress and not ill appearing Respiratory: normal respiratory effort and able to speak in complete sentences; no respiratory distress and no labored breathing Cardiovascular: Extremities: no pedal edema Gastrointestinal (Abdomen): Inspection/Auscultation: abdomen normal to inspection; abdomen not distended Percussion/Palpation: abdomen soft; abdomen nontender and no guarding Musculoskeletal: Head/Neck/Chest: normocephalic and head atraumatic Skin: Surgical dressings C/D/I, dressing removed for inspection. Incisions appear healthy, well approximated with areli. Mild ecchymosis of right lower quadrant incision. No drainage. No significant warmth or erythema. Neurologic: moves all extremities and awake Psychiatric: Orientation: alert, oriented x 3 and cooperative (forgetful at times) Genitourinary: Chavez in place draining clear yellow urine Results & Data ([facility]) Vital Signs (Past 12 Hours) Vital Signs Temp Pulse Pulse Resp BP Pulse Ox 02/18/21 07:08 36.8 C 71 16 125/71 94 02/18/21 02:53 36.6 C 79 16 144/83 H 91 02/17/21 22:29 36.3 C L 77 16 116/75 97 PG Care Time/CCT Total # of Minutes Spent Total Time Spent with Patient: Total time spent is greater than 50% in coordination of care (as documented) at patient's floor/unit and/or counseling patient: Coding Level of Care Code 36978 Subseq Hosp Care Lvl 2 Diagnoses Renal mass N28.89
[2021-02-18] MEDS: ATENOLOL 25 MG TABLET PO SCH (09:19)
[2021-02-19] MEDS ORDERED: LEVOTHYROXINE SODIUM 25 MCG TABLET PO SCH (06:30)
--- NOTE | 2021-02-19 09:51 | Discharge Summary ---
Date of Service February 19, 2021 Admission HPI Per Admitting Provider Patient here for right nephrectomy secondary to right renal mass. No changes in medical issues. No major changes in urinary issues. Continued issues and concerns. No change in pain or discomfort. No severe fevers or chills. No chest pain or shortness of breath. Risks and benefits discussed at length for procedure. These include bleeding, infection, injury to surrounding tissues or organs, and risks associated with anesthesia. Patient and/or family states understanding and agrees to proceed. Consent and supporting information completed. Admission Exam Per Admitting Provider General: Alert/Arousable. No Acute illness. Baseline memory issues with dementia. No exacerbation. Issues mainly become more significant at night. HEENT: Inspection normal. Normal inspection of face. Normal inspection of neck. Psychologic: Normal affect/No change in mentation. Respiratory: No use of accessory muscles. No respiratory changes or exacerbation or changes with tachypnea or dyspnea. Cardiovascular: No tachycardia Skin: [place] and Dry. No new rashes or visible lesions. Abdomen: Normal inspection. No guarding. Principal Diagnosis Renal mass Discharge Exam Constitutional well developed and well nourished; no acute distress and not ill appearing Respiratory normal respiratory effort and able to speak in complete sentences; no respiratory distress and no labored breathing Cardiovascular Extremities: no pedal edema Gastrointestinal (Abdomen) Inspection/Auscultation: abdomen normal to inspection; abdomen not distended Percussion/Palpation: abdomen soft; abdomen nontender and no guarding Musculoskeletal Head/Neck/Chest: normocephalic and head atraumatic Skin Surgical dressings C/D/I, dressing removed for inspection. Incisions appear healthy, well approximated with areli. Mild ecchymosis of right lower quadrant incision. No drainage. No significant warmth or erythema. Neurologic moves all extremities and awake Psychiatric Orientation: alert, oriented x 3 and cooperative (forgetful at times) Genitourinary no CVA tenderness Chavez intact and draining clear yellow urine Discharge Data Allergies Allergy/AdvReac Type Severity Reaction Status Date / Time No Known Allergies Allergy Verified 02/17/21 08:47 Consultations 02/17/21 16:35 Consult Hospitalist Routine Procedures Performed Operation Date: 02/17/21 10:30 Actual Procedures p Right Robotic Hand Assisted Laparoscopic Nephrectomy(Right) - Parminder Figueroa DO Hospital Course (1) Renal mass: 70 yo F POD #1 s/p Right Robotic Assisted Laparoscopic radical nephrectomy and extensive lysis of adhesions with Dr. Figueroa. - Doing well, progressing as expected - Afebrile, lab work reviewed - creatinine increased to 1.25 as expected post-op nephrectomy, WBC 10.78, Hgb 11.7 - Pain is tolerable, currently utilizing IV morphine - recommend transition to PO analgesia today - Surgical dressings removed this AM - incisions appropriate - Tolerating clear liquid diet - will advance diet for lunch, discontinue IV fluids this AM - D/C Chavez catheter this morning, monitor for void - Heparin ordered this AM for DVT ppx per Dr. Figueroa - Encouraged OOB ambulation - Anticipate home later today if she continues to progress - Hospital medicine consulted during admission for medical management - Discussed with hospitalist, patient stable for discharge today - orders placed, pt to be discharged after voiding - Will arrange appropriate post operative follow-up with our service - Expected clinical course reviewed, all questions answered Total Time Total Time Spent Total Time Spent (In Minutes): 29 Discharge Plan Discharge Items Patient Disposition: Home - Self-Care Reason For Visit: Renal Mass Discharge Diagnosis: Renal Mass Activity: Per Instructions section Lifting: No more than 10 pounds Bathing Comment: Okay to shower after discharge Sexual Activity: Wait until after follow-up appointment Exercise/Sports: Wait until after follow-up appointment Driving/Machine Use: No driving while taking prescription pain medication Non-emergency contact: Surgeon Call non-emergency contact if: you have any medication questions, your symptoms worsen, your pain is not controlled, you have a fever, your temperature is above 101, your wound has increased redness, your wound has increased drainage and your wound pain has increased Follow-up/Referrals: Vijay Diaz MD [Primary Care Provider] - Diet: Regular and Carb Consistent or DM2 Addtl Attending Provider Instructions: Please take all medications as prescribed and keep all follow-ups as scheduled. Please call our office at [phone] with any questions, concerns or need to reschedule appointments for any reason. We are happy to assist you. Activity: We recommend having someone with you for the first few days after surgery to help care for you. For the first 2 weeks after surgery, we would like you to get up and walk around your house. However, we recommend limit physical activity that would increase your heart rate. This will allow your body to rest and heal. Take naps if you feel tired. Don't lift anything heavier than 10 pounds, mow the law or ride a bicycle until your follow-up appointment. Please avoid long car rides. Home Care: Unless directed otherwise, drink 6 to 8 glasses of water a day (enough to keep your urine light colored). This will also help keep a healthy flow of urine. We recommend using a stool softener for the first two weeks to avoid constipation. Follow-up Your final pathology report will be discussed at your physician follow-up appointment. Call [facility] at [phone] right away if you have any of the following: Chest pain or trouble breathing (call 911 or go to the hospital) Fever of 101F or higher, uncontrolled vomiting Heavy bleeding, clots, or bright red blood in urine You are unable to urinate Redness, swelling, warmth, or increased pain at your incision site Drainage, pus, or bleeding from your incision Addtl Worm Farmer Provider Instructions: You should continue to hold the lisinopril for today and can resume in AM. Ensure drinking adequate oral fluids to maintain hydration and monitor urine output. You should follow up with Neurology in next month for repeat brain imaging and should discussion about possibly starting a baby aspirin 81mg daily for prevention given reports of old "stroke" previously reported. Pending Studies at Discharge: Yes (Pathology) Stand-Alone Forms: My [facility], Smoking Cessation Medications and DC Order Prescriptions: New oxycodone-acetaminophen [Percocet] 5-325 mg tablet 1 tab PO TID PRN (Reason: pain) Qty: 10 RF: 0 docusate sodium [Colace] 100 mg capsule 100 mg PO BID Qty: 60 RF: 0 Continued lisinopril 5 mg tablet 5 mg PO QAM RF: 0 atenolol 25 mg tablet 25 mg PO BID RF: 0 levothyroxine 25 mcg capsule 12.5 mcg PO Q OTHER DAY RF: 0 famotidine [Acid Steam Finisher (famotidine)] 10 mg tablet 10 mg PO QAM RF: 0 simvastatin 20 mg Tablet 20 mg PO PM RF: 0 donepezil [Aricept] 5 mg Tablet 5 mg PO QAM RF: 0 mirtazapine 15 mg Tablet 15 mg PO HS RF: 0 Discharge Orders: Discharge Order (Routine); Ordered 02/18/21 Ordered By: Hazel Mullen Admission Data Admit Date/Time: 02/17/21 14:54 Attending Provider: Parminder Figueroa Admit Provider: Parminder Figueroa Primary Care Provider: Vijay Diaz Other Providers: Vicente Mullen ; Leah Norman ; Clinton Butler ; Vijay Roy ; Brendan Sullivan V. ; Domonique Diop ; Trace Siddiqui ; Nirmal Rodriguez ; Dano Cardenas ; Mike Torres ; Dirk Matson ; Barrera Yarbrough ; Alycia Collins ; Becca Sagastume ; Miguelina Carrera ; Clay Low ; Janneth Garcia ; Caroline Benoit ; Renetta Esquivel ; Sunil [place] ; Hay Franco ; Pati Perez ; Akosua Matthews ; Uriel Grullon ; Domonique Schofield ; Travis Reynoso ; Munir Manuel ; Rubens Frye ; Trace Mcintyre ; David Shore ; Ricarda Gregorio ; Marla Martinez ; Michael Khan ; Janneth Horowitz ; Vicente Rodriguez ; Hunter Howard ; Milind Max ; Izzy Rasheed ; George Ramires Other Interventions: Discharge Summary Assessment (RN) Last Done: 02/18/21 14:53 Coding Level of Care Code D/C DAY MANAGEMENT <30 MINS Diagnoses Renal mass N28.89
--- NOTE | 2021-03-07 12:44 | Coding Query ---
PATHOLOGY To promote full compliance with coding requirements relating to patient care, physician participation is requested in all cases of computer aided design operator uncertainty. Please assist us with the question(s) below: Please review the Pathology report and please document any relevant diagnosis(es) below: Diagnosis(es): Renal Cell Carcinoma s/p Radical Right Nephrectomy Thank you Claire FRANCISCO
== END 2021-02-18 16:06 | disposition home or self-care (01) | DRG 657 ==
LOC: ASU 08:22 → 3N 14:54

== ENCOUNTER 2021-08-05 13:45 | Inpatient (IN) ==
[2021-08-05] MEDS ORDERED: SODIUM CHLORIDE 0.9% 1000ML 1,000 ML IV ONE (14:04)
--- NOTE | 2021-08-05 14:04 | Emergency Department Note ---
Impression & Plan Brain mass, Ambulatory dysfunction ED Provider Note NAME: MEME BEAL AGE: 70 SEX: F : 1950 ARRIVES VIA: Walk-In INFORMANT: Patient, weak ED PROVIDER(S): Mike Hunter DO CHIEF COMPLAINT: weak HPI: Patient is a 70-year-old female with a past medical history of CVA, dementia, renal cell carcinoma, GERD, hypothyroidism and diabetes who presents to the ER for weakness. Patient has had a steady decline over the past month. She was seen and evaluated here and treated for a bladder stone. Since then she has not been eating and drinking. She has been having more trouble walking. notes that over a week ago she has been having worsening handwriting associated with all of this. Patient denies any headache or change in vision. No chest pain or shortness of breath. No nausea, vomiting, or diarrhea. She denies any dysuria, urgency, or frequency. No other exacerbating or remitting factors. He has not noticed any focal weakness but has noticed that she is using her right side more than her left with various different things including eating which is slightly atypical for her as she is left-hand dominant. Has been also admits that for the past 3 days she has been complaining of a weird feeling in her left arm and left lower extremity. For about 24 hours she has been dropping things with her left hand which is abnormal. Patient has fallen 3 times in the past 24 hours. ROS: See above HPI for pertinent positives & negatives. A total of 10 systems reviewed and were otherwise negative. PAST MEDICAL HISTORY:See Below PAST SURGICAL HISTORY:See Below FAMILY HISTORY:See Below SOCIAL HISTORY:See Below HOME MEDICATIONS:See Below ALLERGIES:See Below VITALS:See Below PHYSICAL EXAMINATION: GENERAL: Sitting up in bed, alert, well appearing, well nourished, no distress, non-toxic EYE EXAM: normal conjunctiva. PERRL and EOM's intact. OROPHARYNX: no exudate, no erythema, lips, buccal mucosa, and tongue normal and mucous membranes are moist NECK: supple, no nuchal rigidity, no adenopathy, non-tender LUNGS: Clear to auscultation. Normal chest wall mechanics HEART: no murmurs, S1 normal and S2 normal ABDOMEN: abdomen soft, non-tender, normo-active bowel sounds, no masses, no rebound or guarding. BACK: Back is symmetrical on inspection and there is no deformity, no midline tenderness, no CVA tenderness. SKIN: no rashes and no bruising UPPER EXTREMITIES: upper extremities are grossly normal. LOWER EXTREMITIES: No pitting edema. NEURO EXAM: Oriented to person, place but not year, cranial nerves II-XII intact, normal speech, no weakness of arms, no weakness of legs. No drift. Finger to nose intact. Gross sensation intact. MEDICAL DECISION MAKING: Patient 70-year-old female who presents ER for above-stated complaint. IV was established blood work is obtained. Labs show no significant leukocytosis or anemia. BMP with slightly elevated glucose 118. LFTs bilirubin and troponin was negative. Lipase was normal. UA was clean. COVID-negative. CT head shows a 1 cm juan c lesion. With her history of renal cell carcinoma do favor this likely cancerous. Also favor this likely cause of her symptoms. Discussed with Trace Mcintyre for further evaluation. Do not feel this will benefit from neurosurgical evaluation at this time and will need MRI to confirm this a brain mass. Triage Nursing notes reviewed. Limited review of prior medical records performed Vital Signs: reviewed and remarkable for no significant abnormalities Differential diagnosis: Infection, dehydration, metabolic abnormality, hypo/hyperglycemia, electrolyte disturbance, anemia, hypoxia, cardiac sources, intracerebral event, toxicologic, neurologic, as well as other pathologies. ER treatment provided: See below Diagnostics interpreted by me: ECG: Sinus bradycardia rate of 56 Normal axis No PVCs Poor baseline QTC 414 Cardiac Monitoring: An order was placed for continuous cardiac monitoring. The monitor shows a rate of 58 with sinus rhythm. Laboratory studies: As stated above and show below. Imaging studies: CT of the head shows a questionable brain lesion Consultation(s): Discussed with Trace Mcintyre for further evaluation Procedures: none Critical Care: None Past Med/Surg History Medical History Anxiety and depression Borderline type 2 diabetes mellitus DIET CONTROLLED Cardiac murmur Pt and report chronic, deny any h/o previous echo; no available records Dementia History of CVA (cerebrovascular accident) incidental finding remote per neuro per pt's -- event unk to pt - no deficits -SECOND NEURO SAID NO EVIDENCE OF STROKE- FOLLOWS W/ [facility]- LAST VISIT SPRING 2021 History of esophageal dilatation History of skin cancer removed HLD (hyperlipidemia) HTN (hypertension) controlled, stable per pt and Hypothyroidism Poor short term memory Renal mass RIGHT KIDNEY REMOVED FEB 2021; NO CURRENT ISSUES NO RENAL INSUFFICIENCY PER PTS SPOUSE Scoliosis Surgical History H/O kidney removal FEB 2021-[facility]- NO RENAL INSUFF. LEFT KIDNEY WORKING WELL ACCORDING PTS SPOUSE. History of cataract surgery R/L History of colonoscopy History of esophagogastroduodenoscopy (EGD) History of hysterectomy History of tonsillectomy Hx of cholecystectomy 2020 S/P fine needle aspiration thyroid Family History Brother Hypertension Sister Cancer Breast Mother Cancer Breast Other No family history of adverse response to anesthesia Social History Smoking Status: Never smoker Second Hand Exposure: Yes ( X 30 YRS); Hx Alcohol Use: No Hx Substance Use: No Preferred Language: Urdu Communication Ability: Effective Tank Car Reconditioner Required: No Beliefs That Will Affect Care: None marital status: Current Living Situation: Spouse current occupational status: retired Feels Safe at Home: Yes Assistive Devices: None Allergies Allergies Allergy/AdvReac Type Severity Reaction Status Date / Time No Known Allergies Allergy Verified 08/05/21 16:37 Home Meds Home Medications Medication Instructions Recorded Confirmed famotidine 10 mg tablet (Acid 10 mg PO BID 01/16/21 08/05/21 Fuel Technician (famotidine)) levothyroxine 25 mcg capsule 12.5 mcg PO Q OTHER DAY 01/16/21 08/05/21 mirtazapine 15 mg tablet 15 mg PO HS 02/12/21 08/05/21 simvastatin 20 mg tablet 20 mg PO HS 02/12/21 08/05/21 lisinopril 20 mg tablet 20 mg PO QA 07/30/21 08/05/21 atenolol 50 mg tablet 50 mg PO BID 08/05/21 08/05/21 donepezil 10 mg tablet 10 mg PO HS 08/05/21 08/05/21 Previous Rx's Medication Instructions Recorded phenazopyridine 200 mg tablet 200 mg PO Q8H PRN #10 tab 07/14/21 (Pyridium) tamsulosin 0.4 mg capsule 0.4 mg PO HS #30 cap 07/14/21 ondansetron 4 mg disintegrating 4 - 8 mg PO Q8H PRN #14 tab 07/30/21 tablet Results & Data (ED) Vital Signs Vital Signs - 24 hr 08/05/21 13:48 08/05/21 14:17 08/05/21 14:24 Temperature 36.5 C Temperature Source Temporal Artery Scan Pulse Rate 55 L 57 L Pulse Rate [Left Finger] 57 L Pulse Rhythm Regular Pulse Rhythm [Left Finger] Pulse Strength [Left Finger] Normal Respiratory Rate 18 18 18 Respiratory Effort / Characteristics Non-Labored Spontaneous Respiratory Depth Normal Respiratory Pattern Regular Blood Pressure 126/71 Blood Pressure [Left Arm] 132/93 Blood Pressure Mean 89 Blood Pressure Mean [Left Arm] 106 Blood Pressure Position Sitting Blood Pressure Position [Left Arm] Lying Pulse Oximetry 97 97 98 Oxygen Delivery Method Room Air Room Air Room Air Sepsis Recent Fever Within 48 Hours No Sepsis New/Unexplained Change in Mental Status No Sepsis Action Taken by Nursing No Action Required 08/05/21 16:00 Temperature Temperature Source Pulse Rate Pulse Rate [Left Finger] 61 Pulse Rhythm Pulse Rhythm [Left Finger] Regular Pulse Strength [Left Finger] Normal Respiratory Rate 16 Respiratory Effort / Characteristics Non-Labored Spontaneous Respiratory Depth Normal Respiratory Pattern Regular Blood Pressure Blood Pressure [Left Arm] 132/93 Blood Pressure Mean Blood Pressure Mean [Left Arm] 106 Blood Pressure Position Blood Pressure Position [Left Arm] Lying Pulse Oximetry 96 Oxygen Delivery Method Room Air Sepsis Recent Fever Within 48 Hours Sepsis New/Unexplained Change in Mental Status Sepsis Action Taken by Nursing Laboratory Data Result diagrams: 08/05/21 14:16 08/05/21 14:16 Lab Results 08/05/21 08/05/21 08/05/21 Range/Units 14:11 14:16 14:16 WBC 10.07 (4.8-10.8) K/uL RBC 4.81 (4.2-5.4) M/uL Hgb 13.4 (12.0-16.0) g/dL Hct 41.2 (37-47) % MCV 85.7 (80-100) fL MCH 27.9 (25-34) pg MCHC 32.5 (32-36) g/dL RDW Std Deviation 43.5 (36.4-46.3) fL RDW Coeff of Dez 14.1 (11.5-14.5) % Plt Count 338 (130-400) K/uL MPV 8.6 (7.4-10.4) fL Immature Gran % (Auto) 0.3 % Neut % (Auto) 72.3 % Lymph % (Auto) 13.7 % [place] % (Auto) 11.5 % Eos % (Auto) 1.9 % Baso % (Auto) 0.3 % Neut # (Auto) 7.28 H (1.4-6.5) K/uL Lymph # (Auto) 1.38 (1.2-3.4) K/uL [place] # (Auto) 1.16 H (0.11-0.59) K/uL Eos # (Auto) 0.19 (0-0.5) K/uL Baso # (Auto) 0.03 (0-0.2) K/uL Immature Gran # (Auto) 0.03 H (0.00-0.02) K/uL Sodium 138 (136-145) mmol/L Potassium 3.9 (3.5-5.1) mmol/L Chloride 102 (98-107) mmol/L Carbon Dioxide 29 (21-32) mmol/L Anion Gap 7 (3-11) BUN 15 (6-23) mg/dl Creatinine 1.21 H (0.6-1.2) mg/dl Est Cr Clr Drug Dosing 35.2 ml/min Est GFR ( Amer) 52.1 ml/min Est GFR (Non-Af Amer) 45.0 ml/min BUN/Creatinine Ratio 12.4 (10-20) Glucose 118 H (70-99(Fasting)) mg/dl POC Glucose 124 H (70-99) mg/dl Calcium 9.8 (8.5-10.1) mg/dl Total Bilirubin 0.6 (0.2-1.0) mg/dl AST 10 L (13-39) U/L ALT 9 (7-52) U/L Alkaline Phosphatase 85 (34-104) U/L Troponin I High Sens 4.2 (0-14) pg/ml Total Protein 7.9 (6.0-8.3) gm/dl Albumin 4.1 (3.4-5.0) gm/dl Globulin 3.8 (2.5-4.0) gm/dl Albumin/Globulin Ratio 1.1 (0.9-2) Lipase 20 (11-82) U/L Urine Color Urine Appearance (Clear) Urine pH (4.5-7.5) Ur Specific [place] (1.000-1.030) Urine Protein (Negative) Urine Glucose (UA) (Negative) Urine Ketones (Negative) Urine Blood (Negative) Urine Nitrite (Negative) Urine Bilirubin (Negative) Urine Urobilinogen (Negative) Ur Leukocyte Esterase (Negative) Urine WBC (Auto) (0-5) /hpf Urine RBC (Auto) (0-4) /hpf U Hyaline Cast (Auto) (0-5) /lpf U Epithel Cells (Auto) (0-5) /lpf Urine Bacteria (Auto) (Negative) SARS-CoV-2, RNA, NAAT (NEGATIVE) 08/05/21 08/05/21 Range/Units 14:20 15:30 WBC (4.8-10.8) K/uL RBC (4.2-5.4) M/uL Hgb (12.0-16.0) g/dL Hct (37-47) % MCV (80-100) fL MCH (25-34) pg MCHC (32-36) g/dL RDW Std Deviation (36.4-46.3) fL RDW Coeff of Dez (11.5-14.5) % Plt Count (130-400) K/uL MPV (7.4-10.4) fL Immature Gran % (Auto) % Neut % (Auto) % Lymph % (Auto) % [place] % (Auto) % Eos % (Auto) % Baso % (Auto) % Neut # (Auto) (1.4-6.5) K/uL Lymph # (Auto) (1.2-3.4) K/uL [place] # (Auto) (0.11-0.59) K/uL Eos # (Auto) (0-0.5) K/uL Baso # (Auto) (0-0.2) K/uL Immature Gran # (Auto) (0.00-0.02) K/uL Sodium (136-145) mmol/L Potassium (3.5-5.1) mmol/L Chloride (98-107) mmol/L Carbon Dioxide (21-32) mmol/L Anion Gap (3-11) BUN (6-23) mg/dl Creatinine (0.6-1.2) mg/dl Est Cr Clr Drug Dosing ml/min Est GFR ( Amer) ml/min Est GFR (Non-Af Amer) ml/min BUN/Creatinine Ratio (10-20) Glucose (70-99(Fasting)) mg/dl POC Glucose (70-99) mg/dl Calcium (8.5-10.1) mg/dl Total Bilirubin (0.2-1.0) mg/dl AST (13-39) U/L ALT (7-52) U/L Alkaline Phosphatase (34-104) U/L Troponin I High Sens (0-14) pg/ml Total Protein (6.0-8.3) gm/dl Albumin (3.4-5.0) gm/dl Globulin (2.5-4.0) gm/dl Albumin/Globulin Ratio (0.9-2) Lipase (11-82) U/L Urine Color Yellow Urine Appearance Clear (Clear) Urine pH 6.0 (4.5-7.5) Ur Specific [place] 1.005 (1.000-1.030) Urine Protein Negative (Negative) Urine Glucose (UA) Negative (Negative) Urine Ketones Negative (Negative) Urine Blood Negative (Negative) Urine Nitrite Negative (Negative) Urine Bilirubin Negative (Negative) Urine Urobilinogen Negative (Negative) Ur Leukocyte Esterase 1+ H (Negative) Urine WBC (Auto) 1-5 (0-5) /hpf Urine RBC (Auto) 0-4 (0-4) /hpf U Hyaline Cast (Auto) 0 (0-5) /lpf U Epithel Cells (Auto) 10-20 H (0-5) /lpf Urine Bacteria (Auto) Negative (Negative) SARS-CoV-2, RNA, NAAT NEGATIVE (NEGATIVE) Administered Medications Discontinued Medications Gadobutrol (Gadobutrol 65ml Vial) 5.5 ml IV ONCE ONE Stop: 08/05/21 17:59 Last Admin: 08/05/21 17:58 Dose: 5.5 ml Documented by: [id number] Sodium Chloride (Nss 1000ml) 1,000 mls @ 999 mls/hr IV .Q1H1M ONE Stop: 08/05/21 15:04 Last Infusion: 08/05/21 15:36 Dose: 0 mls/hr Documented by: [id number] Admin: 08/05/21 14:35 Dose: 999 mls/hr Documented by: [id number] Dexamethasone 4 mg/ Syringe 1 mls @ 1 mls/min IV ONE STA Stop: 08/05/21 16:02 Last Admin: 08/05/21 16:57 Dose: 1 mls/min Documented by: [id number] Pantoprazole Sodium (Pantoprazole 40 Mg Tab) 40 mg PO NOW STA Stop: 08/05/21 16:46 Last Admin: 08/05/21 16:58 Dose: 40 mg Documented by: [id number] Imaging Data Radiologist's Impression: Head CT 08/05/21 14:03 CT OF THE HEAD WITHOUT CONTRAST CLINICAL HISTORY: Weak. History of renal cell carcinoma. COMPARISON STUDY: No previous studies for comparison. CT DOSE: 537.48 mGy.cm TECHNIQUE: Helical axial images of the head were obtained without IV contrast. Automated exposure control was utilized for the study. A dose lowering technique was utilized adhering to the principles of ALARA. FINDINGS: No acute intracranial hemorrhage, midline shift or mass effect is present. Note is made of a mixed attenuation 1.8 cm right posterior pontine lesion shown on axial image 8 of . Ventricular system is unremarkable. Basal cisterns are patent. There are no extra-axial collections. Scattered subcortical white matter hypodense foci are present. No findings to suggest acute dural sinus thrombosis or acute territorial infarct. No significant calvarial abnormality is present. IMPRESSION: 1. 1.8 cm right posterior pontine lesion. This may reflect metastatic disease. MRI of the brain with and without contrast is recommended. 2. Scattered subcortical white matter hypodense foci. These probably reflect small vessel disease but can be assessed on MRI. ACT 112: Negative or not required by law. Electronically signed by: Mahin Collins M.D. 08/05/2021 2:40 PM Chest X-Ray 08/05/21 15:03 XR chest 1V portable HISTORY: 70 years-old Female weakness and falls acute weakness COMPARISON: Chest radiograph 02/13/2021, PET CT 06/30/2021. TECHNIQUE: Portable AP view of the chest FINDINGS: [Right bilateral hilar prominence redemonstrated. The heart is upper limits of normal in size. Mild right hemidiaphragmatic elevation. There is no pneumothorax, pleural effusion, airspace consolidation or overt pulmonary edema. Degenerative changes of the shoulders and spine. IMPRESSION: 1. No acute process. 2. Hilar adenopathy redemonstrated. ACT 112: Negative or not required by law. The above report was generated using voice recognition software. It may contain grammatical, syntax or spelling errors. Electronically signed by: Fletcher Padron M.D. 08/05/2021 3:09 PM Brain MRI 08/05/21 15:44 MRI OF THE BRAIN COMBO CLINICAL HISTORY: Intracranial mass. COMPARISON STUDY: CT of the brain dated 08/05/2021. TECHNIQUE: MRI of the brain was performed utilizing various T1 and T2-weighted sequences in the axial, sagittal, and coronal planes. Contrast-enhanced sequences were acquired following the administration of 5.5 cc of Gadavist. FINDINGS: Brain parenchyma: There is age-related involutional change noting mild subco rtical and periventricular microangiopathic disease. There is a 1.6 x 1.5 x 2.0 cm heterogeneously enhancing mass lesion centered in the right aspect of the juan c. This is best seen on axial postcontrast image #43 of 132. There is surrounding edema, with mild effacement of the fourth ventricle. An additional punctate enhancing lesion is seen in the left occipital lobe on image #62, and a punctate enhancing lesion in the right frontal lobe is seen on image #105. There is no hemorrhage or mass effect. There is no restricted diffusion typical for acute ischemia. No extra-axial fluid collection is seen. The cerebellar tonsils are normal in configuration. Ventricles, sulci, and cisterns: Prominent secondary to involutional change. Pituitary and sella: Unremarkable. Intracranial vasculature: Normal flow voids are maintained at the skull base. Orbits: The bony orbits are grossly intact. Orbital contents are normal in appearance noting bilateral ocular lens implants. Sinuses and mastoids: Clear. Calvarium: Unremarkable. Cervical cord: Partially visualized cervical spinal cord is normal in morphology and signal intensity. IMPRESSION: 1. There is a 2.0 cm heterogeneously enhancing mass lesion centered in the right aspect of the juan c as detailed above. There are at least 2 additional punctate enhancing intracranial lesions, and metastatic disease is favored over a primary glial neoplasm. 2. There is surrounding edema and and mass effect with mild effacement of the fourth ventricle. 3. There is no evidence of hydrocephalus. 4. There is no hemorrhage or evidence of acute ischemia. 5. Additional findings as above. ACT 112: Negative or not required by law. Electronically signed by: Barrera Henderson M.D. 08/05/2021 6:34 PM Discharge Plan Visit Data Chief Complaint: TIA Symptoms Stated Complaint: LEFT SIDE NUBNESS, HEADACHE, LOSS OF BALANCE ED Provider: Mike Hunter Discharge Problem: Brain mass, Ambulatory dysfunction Patient Disposition: Admitted As Inpatient Discharge Instructions Interventions: ED Discharge Assessment Last Done: 08/05/21 18:59
--- NOTE | 2021-08-05 14:41 | CT Scan Report ---
CT OF THE HEAD WITHOUT CONTRAST CLINICAL HISTORY: Weak. History of renal cell carcinoma. COMPARISON STUDY: No previous studies for comparison. CT DOSE: 537.48 mGy.cm TECHNIQUE: Helical axial images of the head were obtained without IV contrast. Automated exposure con trol was utilized for the study. A dose lowering technique was utilized adhering to the principles o f ALARA. FINDINGS: No acute intracranial hemorrhage, midline shift or mass effect is present. Note is made of a mixed attenuation 1.8 cm right posterior pontine lesion shown on axial image 8 of . Ventricular s ystem is unremarkable. Basal cisterns are patent. There are no extra-axial collections. Scattered sub cortical white matter hypodense foci are present. No findings to suggest acute dural sinus thrombosis or acute territorial infarct. No significant calvarial abnormality is present. IMPRESSION: 1. 1.8 cm right posterior pontine lesion. This may reflect metastatic disease. MRI of the brain with and without contrast is recommended. 2. Scattered subcortical white matter hypodense foci. These probably reflect small vessel disease but can be assessed on MRI. ACT 112: Negative or not required by law. Electronically signed by: Mahin Collins M.D. 08/05/2021 2:40 PM
[2021-08-05 14:52] LABS: Basophils # (auto) 0.03 K/uL (0-0.2); Basophils % (auto) 0.3 %; Eosinophils # (auto) 0.19 K/uL (0-0.5); Eosinophils % (auto) 1.9 %; Hematocrit (blood only) 41.2 % (37-47); Hemoglobin 13.4 g/dL (12.0-16.0); Immature Granulocytes # (auto) 0.03 K/uL (0.00-0.02); Immature Granulocytes % (auto) 0.3 %; Lymphocytes # (auto) 1.38 K/uL (1.2-3.4); Lymphocytes % (auto) 13.7 %; Mean Corpuscular Hemoglobin 27.9 pg (25-34); Mean Corpuscular Hgb Conc 32.5 g/dL (32-36); Mean Corpuscular Volume 85.7 fL (80-100); Mean Platelet Volume 8.6 fL (7.4-10.4); Monocytes # (auto) 1.16 K/uL (0.11-0.59); Monocytes % (auto) 11.5 %; Neutrophils # (auto) 7.28 K/uL (1.4-6.5); Neutrophils % (auto) 72.3 %; Platelet Count 338 K/uL (130-400); RDW Coefficient of Variation 14.1 % (11.5-14.5); RDW Standard Deviation 43.5 fL (36.4-46.3); Red Blood Count 4.81 M/uL (4.2-5.4); White Blood Count 10.07 K/uL (4.8-10.8)
[2021-08-05 15:07] LABS: Troponin I High Sensitivity 4.2 pg/ml (0-14)
[2021-08-05 15:11] LABS: Albumin Globulin Ratio 1.1 (0.9-2); Albumin Level 4.1 gm/dl (3.4-5.0); BUN Creatinine Ratio 12.4 (10-20); Bilirubin,Total 0.6 mg/dl (0.2-1.0); Calcium 9.8 mg/dl (8.5-10.1); Creatinine Clr Calc Pharmacy 35.2 ml/min; Est GFR (African American) 52.1 ml/min; Globulin 3.8 gm/dl (2.5-4.0); Potassium 3.9 mmol/L (3.5-5.1); Total Protein 7.9 gm/dl (6.0-8.3)
--- NOTE | 2021-08-05 15:11 | XRay Report ---
XR chest 1V portable HISTORY: 70 years-old Female weakness and falls acute weakness COMPARISON: Chest radiograph 02/13/2021, PET CT 06/30/2021. TECHNIQUE: Portable AP view of the chest FINDINGS: [Right bilateral hilar prominence redemonstrated. The heart is upper limits of normal in size. Mild r ight hemidiaphragmatic elevation. There is no pneumothorax, pleural effusion, airspace consolidation or overt pulmonary edema. Degenerative changes of the shoulders and spine. IMPRESSION: 1. No acute process. 2. Hilar adenopathy redemonstrated. ACT 112: Negative or not required by law. The above report was generated using voice recognition software. It may contain grammatical, syntax o r spelling errors. Electronically signed by: Fletcher Padron M.D. 08/05/2021 3:09 PM
[2021-08-05 15:59] LABS: Appearance Urine Clear (Clear); Bacteria Urine Automated Negative (Negative); Bilirubin Urine Negative (Negative); Blood Urine Negative (Negative); Cast Urine Automated 0 /lpf (0-5); Color Urine Yellow; Glucose Urine UA Negative (Negative); Ketones Urine Negative (Negative); Leukocyte Esterase Urine 1+ (Negative); Nitrite Urine Negative (Negative); Protein Urine Negative (Negative); RBC Urine Automated 0-4 /hpf (0-4); Specific Gravity Urine 1.005 (1.000-1.030); Urobilinogen Urine Negative (Negative)
[2021-08-05] MEDS ORDERED: dexAMETHasone 4 MG in SYRINGE 0 ML IV STA (16:01)
--- NOTE | 2021-08-05 16:37 | History & Physical Report ---
Date of Service August 05, 2021 Assessment & Plan (1) Brain mass: Plan: Concerning for metastatic renal cell carcinoma Dexamethasone 4mg IV now, Q6h vs. q12h depending on edema seen on Brain MRI - add GI prophylaxis with pantoprazole 40mg PO daily while on this Brain MRI with and without IV contrast Consult oncology - discussed with Dr Shipley on admission, will defer port placement depending on chemotherapy decision given she already has poor nutritional status and appetite Consult radiation oncology Consult neurology PT/OT (2) Renal cell cancer: Plan: Radical nephrectomy in February 2021 without neoadjuvant chemotherapy Planning on biopsy of FDG avid pulmonary nodule this week Extensive lymphadenopathy seen on most recent PET/CT in June 2021 (3) Nausea and vomiting: Plan: Ondansetron 4mg IV PRN (4) Hypothyroidism: Plan: TSH WNL in February Levothyroxine 12.5 mcg PO QOD (5) Hypertension: Plan: Continue atenolol 50mg PO BID and lisinopril 20mg PO daily (6) Anorexia: Plan: Secondary to metastatic cancer Boost drinks, dietary consult Plan: VTE Prophylaxis - Lovenox 40mg SQ daily Diet - regular, dietary consult for supplements Disposition - admit to med/tele Admission and Anticipated Discharge Date Admission Date: August 05, 2021 History of Present Illness Chief Complaint: Ambulatory dysfunction Primary Care Provider: Vijay Diaz MD Jesica Whiteside is a 70 year old female with renal cell carcinoma who presents to the ER with ambulatory dysfunction and weakness. Her reports symptoms have progressively been getting worse for the last month and they were here in the ER with the same symptoms on July 30, 2021. Associated severely reduced appetite without dysphagia or odynophagia and weigh loss. She has chronic intermittent abdominal pain which she relates to her prior surgery but none currently. No diarrhea, nausea or vomiting. Main concern is her ambulatory dysfunction. She has noticed she is using her right side a lot more and has been dropping objects with her left hand. She denies any vision, speech or hearing changes. She has fallen three times in the last 24 hours but denies any head, neck, wrist, hip or ankle pain from these falls. In the ER CT head was concerning for 1.8cm right posterior pontine lesion concerning for metastatic disease. She was referred to medicine for admission and ongoing management of this. Allergies Allergy/AdvReac Type Severity Reaction Status Date / Time No Known Allergies Allergy Verified 08/05/21 16:37 Home Medications Medication Instructions Recorded Confirmed Type famotidine 10 mg tablet (Acid 10 mg PO BID 01/16/21 08/05/21 History Wet Wheeler (famotidine)) levothyroxine 25 mcg capsule 12.5 mcg PO Q OTHER DAY 01/16/21 08/05/21 History mirtazapine 15 mg tablet 15 mg PO HS 02/12/21 08/05/21 History simvastatin 20 mg tablet 20 mg PO HS 02/12/21 08/05/21 History phenazopyridine 200 mg tablet 200 mg PO Q8H PRN #10 tab 07/14/21 08/05/21 Rx (Pyridium) tamsulosin 0.4 mg capsule 0.4 mg PO HS #30 cap 07/14/21 08/05/21 Rx lisinopril 20 mg tablet 20 mg PO QAM 07/30/21 08/05/21 History ondansetron 4 mg disintegrating 4 - 8 mg PO Q8H PRN #14 tab 07/30/21 08/05/21 Rx tablet atenolol 50 mg tablet 50 mg PO BID 08/05/21 08/05/21 History donepezil 10 mg tablet 10 mg PO HS 08/05/21 08/05/21 History Past Med/Surg History Medical History Anxiety and depression Borderline type 2 diabetes mellitus DIET CONTROLLED Cardiac murmur Pt and report chronic, deny any h/o previous echo; no available records Dementia History of CVA (cerebrovascular accident) incidental finding remote per neuro per pt's -- event unk to pt - no deficits -SECOND NEURO SAID NO EVIDENCE OF STROKE- FOLLOWS W/ R [facility]- LAST VISIT SPRING 2021 History of esophageal dilatation History of skin cancer removed HLD (hyperlipidemia) HTN (hypertension) controlled, stable per pt and Hypothyroidism Poor short term memory Renal mass RIGHT KIDNEY REMOVED FEB 2021; NO CURRENT ISSUES NO RENAL INSUFFICIENCY PER PTS SPOUSE Scoliosis Surgical History H/O kidney removal FEB 2021-[facility]- NO RENAL INSUFF. LEFT KIDNEY WORKING WELL ACCORDING PTS SPOUSE. History of cataract surgery R/L History of colonoscopy History of esophagogastroduodenoscopy (EGD) History of hysterectomy History of tonsillectomy Hx of cholecystectomy 2020 S/P fine needle aspiration thyroid Family History Brother Hypertension Sister Cancer Breast Mother Cancer Breast Other No family history of adverse response to anesthesia Social History Smoking Status: Never smoker Second Hand Exposure: Yes ( X 30 YRS); Hx Alcohol Use: No Hx Substance Use: No Preferred Language: Zambian Communication Ability: Effective Filament Cutter Required: No Beliefs That Will Affect Care: None marital status: Current Living Situation: Spouse current occupational status: retired Feels Safe at Home: Yes Safety Concerns: Feels Safe At This Time Assistive Devices: Walker Review of Systems Review of Systems: All systems reviewed & are unremarkable except as noted in HPI & below Physical Exam Constitutional: well developed and + frail appearing; + not well nourished and no acute distress Eyes: PERRL, conjunctivae normal, anicteric sclerae ENMT: external ear and nose normal, oropharynx normal Neck: trachea midline, no thyromegaly Respiratory: normal respiratory effort, lungs clear to auscultation Cardiovascular: RRR, no murmur, no edema Gastrointestinal (Abdomen): normal bowel sounds, soft, nontender, no hepatosplenomegaly Musculoskeletal: no cyanosis or clubbing, extremities motor strength 5/5 Skin: no rashes, warm and dry Neurologic: moves all extremities and awake; not confused Speech / Cognition: normal speech Motor/Sensory: + pronator drift (left); no tremor Cranial Nerves: PERRL, EOM intact bilaterally, normal facial strength, tongue midline, able to rotate head bilaterally, able to elevate shoulders bilaterally, no nystagmus and symmetric palate elevation Coordination: + abnormal f [id number] test (left dis co-ordination) Psychiatric: A+Ox3, euthymic affect Results & Data Results & Data ([facility]) Vital Signs (Past 12 Hours) Vital Signs Temp Pulse Pulse Resp BP BP Pulse Ox 08/05/21 14:24 57 L 18 98 08/05/21 14:17 57 L 18 132/93 97 08/05/21 13:48 36.5 C 55 L 18 126/71 97 Laboratory Results Abnormal lab results 08/05/21 08/05/21 08/05/21 Range/Units 14:11 14:16 14:16 Neut # (Auto) 7.28 H (1.4-6.5) K/uL [place] # (Auto) 1.16 H (0.11-0.59) K/uL Immature Gran # (Auto) 0.03 H (0.00-0.02) K/uL Creatinine 1.21 H (0.6-1.2) mg/dl Glucose 118 H (70-99(Fasting)) mg/dl POC Glucose 124 H (70-99) mg/dl AST 10 L (13-39) U/L Ur Leukocyte Esterase (Negative) U Epithel Cells (Auto) (0-5) /lpf 08/05/21 Range/Units 15:30 Neut # (Auto) (1.4-6.5) K/uL [place] # (Auto) (0.11-0.59) K/uL Immature Gran # (Auto) (0.00-0.02) K/uL Creatinine (0.6-1.2) mg/dl Glucose (70-99(Fasting)) mg/dl POC Glucose (70-99) mg/dl AST (13-39) U/L Ur Leukocyte Esterase 1+ H (Negative) U Epithel Cells (Auto) 10-20 H (0-5) /lpf Diagnostic Findings XR chest 1V portable HISTORY: 70 years-old Female weakness and falls acute weakness COMPARISON: Chest radiograph 02/13/2021, PET CT 06/30/2021. TECHNIQUE: Portable AP view of the chest FINDINGS: [Right bilateral hilar prominence redemonstrated. The heart is upper limits of normal in size. Mild right hemidiaphragmatic elevation. There is no pneumothorax, pleural effusion, airspace consolidation or overt pulmonary edema. Degenerative changes of the shoulders and spine. IMPRESSION: 1. No acute process. 2. Hilar adenopathy redemonstrated. CT OF THE HEAD WITHOUT CONTRAST CLINICAL HISTORY: Weak. History of renal cell carcinoma. COMPARISON STUDY: No previous studies for comparison. CT DOSE: 537.48 mGy.cm TECHNIQUE: Helical axial images of the head were obtained without IV contrast. Automated exposure control was utilized for the study. A dose lowering technique was utilized adhering to the principles of ALARA. FINDINGS: No acute intracranial hemorrhage, midline shift or mass effect is present. Note is made of a mixed attenuation 1.8 cm right posterior pontine lesion shown on axial image 8 of . Ventricular system is unremarkable. Basal cisterns are patent. There are no extra-axial collections. Scattered subcortical white matter hypodense foci are present. No findings to suggest acute dural sinus thrombosis or acute territorial infarct. No significant calvarial abnormality is present. IMPRESSION: 1. 1.8 cm right posterior pontine lesion. This may reflect metastatic disease. MRI of the brain with and without contrast is recommended. 2. Scattered subcortical white matter hypodense foci. These probably reflect small vessel disease but can be assessed on MRI. Medications Administered ER Medications Given: NSS 1L bolus ECG Indication: altered mental status Rate (beats per minute): 56 Rhythm: sinus bradycardia Comparison ECG Date: from (Feb 13, 2021) Change: no significant change Code Status & VTE Plan Code Status Full - discussed with patient and VTE Prophylaxis Plan VTE Prophylaxis will be ordered: Yes PG Care Time/CCT Total # of Minutes Spent Total Time Spent with Patient: Total time spent is greater than 50% in coordination of care (as documented) at patient's floor/unit and/or counseling patient: Coding Level of Care Code 32780 Initial Inpt Care Lvl 3 Diagnoses Nausea and vomiting R11.14 Vomiting type: bilious vomiting Hypothyroidism E03.9 Hypertension I10 Brain mass G93.89 Renal cell cancer C64.9 Anorexia R63.0 (1) Nausea and vomiting Vomiting type: bilious vomiting Qualified Code(s): R11.14 - Bilious vomiting
[2021-08-05] MEDS ORDERED: PANTOprazole 40 MG TAB PO STA (16:45)
[2021-08-05] MEDS ORDERED: GADOBUTROL 65ML VIAL IV ONE (17:58)
--- NOTE | 2021-08-05 18:36 | Magnetic Resonance Report ---
MRI OF THE BRAIN COMBO CLINICAL HISTORY: Intracranial mass. COMPARISON STUDY: CT of the brain dated 08/05/2021. TECHNIQUE: MRI of the brain was performed utilizing various T1 and T2-weighted sequences in the axial , sagittal, and coronal planes. Contrast-enhanced sequences were acquired following the administratio n of 5.5 cc of Gadavist. FINDINGS: Brain parenchyma: There is age-related involutional change noting mild subcortical and periventricula r microangiopathic disease. There is a 1.6 x 1.5 x 2.0 cm heterogeneously enhancing mass lesion cente red in the right aspect of the juan c. This is best seen on axial postcontrast image #43 of 132. There is surrounding edema, with mild effacement of the fourth ventricle. An additional punctate enhancing lesion is seen in the left occipital lobe on image #62, and a punctate enhancing lesion in the right frontal lobe is seen on image #105. There is no hemorrhage or mass effect. There is no restricted dif fusion typical for acute ischemia. No extra-axial fluid collection is seen. The cerebellar tonsils a re normal in configuration. Ventricles, sulci, and cisterns: Prominent secondary to involutional change. Pituitary and sella: Unremarkable. Intracranial vasculature: Normal flow voids are maintained at the skull base. Orbits: The bony orbits are grossly intact. Orbital contents are normal in appearance noting bilatera l ocular lens implants. Sinuses and mastoids: Clear. Calvarium: Unremarkable. Cervical cord: Partially visualized cervical spinal cord is normal in morphology and signal intensity . IMPRESSION: 1. There is a 2.0 cm heterogeneously enhancing mass lesion centered in the right aspect of the juan c a s detailed above. There are at least 2 additional punctate enhancing intracranial lesions, and metast atic disease is favored over a primary glial neoplasm. 2. There is surrounding edema and and mass effect with mild effacement of the fourth ventricle. 3. There is no evidence of hydrocephalus. 4. There is no hemorrhage or evidence of acute ischemia. 5. Additional findings as above. ACT 112: Negative or not required by law. Electronically signed by: Barrera Henderson M.D. 08/05/2021 6:34 PM
[2021-08-05] MEDS ORDERED: ACETAMINOPHEN 325 MG TAB PO PRN (19:50)
[2021-08-05] MEDS ORDERED: ONDANSETRON INJ 2 MG/ML 2 ML VIAL IV PRN (19:50)
[2021-08-05] MEDS ORDERED: MIRTAZAPINE TAB 15 MG TAB PO SCH (21:00)
[2021-08-05] MEDS ORDERED: DONEPEZIL HCL 10 MG TAB PO SCH (21:00)
[2021-08-05] MEDS ORDERED: TAMSULOSIN HCL 0.4 MG CAP PO SCH (21:00)
[2021-08-05] MEDS ORDERED: SIMVASTATIN 20 MG TAB PO SCH (21:00)
[2021-08-05] MEDS: FAMOTIDINE 10 MG TABLET PO SCH (22:45)
[2021-08-05] MEDS: HEPARIN SOD 5,000 UNIT/0.5 ML VIAL SQ SCH (22:45)
[2021-08-05] MEDS: ATENOLOL 50 MG TABLET PO SCH (22:46)
[2021-08-05] MEDS: LACTATED RINGER'S 1,000 ML IV SCH (22:47)
[2021-08-06] MEDS: dexAMETHasone 4 MG in SYRINGE 0 ML IV SCH ×4 (00:39→17:02)
[2021-08-06] MEDS: LACTATED RINGER'S 1,000 ML IV SCH ×2 (05:54→14:50)
[2021-08-06] MEDS ORDERED: LEVOTHYROXINE SODIUM 25 MCG TABLET PO SCH (06:30)
--- NOTE | 2021-08-06 08:06 | Radiation OncologyConsultation ---
Date of Consultation August 06, 2021 Assessment & Plan (1) Brain metastasis: Assessment: Ms. Whiteside is a 70-year-old female who was recently diagnosed with metastatic renal cell carcinoma. She did present to the emergency room due to weakness and falls and was admitted to the hospital. She did have an MRI of the brain which does reveal metastatic disease to the brain. The patient has been followed by Dr. Shipley in the outpatient setting and the plan was for initially considering systemic therapy given her recent PET scan. As per Dr. Shipley, she does plan to consider immunotherapy in the outpatient setting. The patient is currently on Dexamethasone 4 mg q6h. I am now seeing the patient in consultation to discuss the role of radiation therapy. Treatment Options: 1. Stereotactic radiosurgery to brain metastases. 2. Whole brain radiation therapy. 3. Best supportive care. Recommendation: Stereotactic radiosurgery to brain metastases. Patient does not need to stay in hospital for treatment and can be discharged when ready. Plan: 1. CT simulation for treatment planning for radiation therapy. IV contrast. 2. Medical oncology input appreciated. Outpatient or inpatient setting a ppropriate. 3. Palliative care consultation in inpatient/outpatient setting could be reasonable. 4. Patient and family encouraged to call us with any further questions or concerns. Rationale/Explanation of Treatment: In general, we did discuss treatment recommendations for the management of metastatic disease to the brain. I did explain to the patient that most often biopsies are not performed given the patient's previous history of cancer unless the patient plans to undergo surgical resection. I discussed treatment options including surgical resection and radiation therapy. The patient defer surgical intervention and would prefer to undergo radiation therapy. I then discussed the advantages and disadvantages of both whole brain radiation therapy and stereotactic radiosurgery. I did discuss the benefits of whole brain radiation therapy with respect to overall intracranial control and the most significant disadvantages including long-term neurocognitive side effects; we then focused or conversation and stereotactic radiosurgery and explained the benefits which included minimizing radiation therapy to the normal brain and potentially reducing long-term side effects from radiation therapy as well as the disadvantages including the inability to potentially prevent further lesions from developing in the brain. I did explain that after the completion of stereotactic radiosurgery we would follow the patient with an MRI of the brain every 2-3 months which would enable us to potentially diagnose new lesions early while they are still asymptomatic and potentially treatable with stereotactic radiosurgery. The patient would like to undergo stereotactic radiosurgery. The patient will be brought back for CT simulation for treatment planning. I explained the indications, alternatives, benefits, risks and side effects of external beam radiation therapy to the brain. I explain the most common side effects including but not limited to skin erythema, skin break down, hair loss, radiation necrosis, fatigue, short-term memory loss, decreased neurocognitive performance, cerebral edema, hearing loss, damage to cochlea structures, seizures, loss of sensory and or motor function. I explained the treatment planning process and what to expect before during and after treatment. The patient understands and would be willing to consent to treatment. The patient and had multiple questions which were answered to their full satisfaction. Thank you for allowing us to participate in the care of this patient. This chart was completed in part utilizing [employer] Speech Voice Recognition software. Attempts were made to minimize the grammatical errors, random word insertions, pronoun errors and incomplete sentences. Any formal questions or concerns about the content, text or information contained within the body of this dictation should be directly addressed to the provider for clarification. Jenaro Cohen MD Department of Radiation Oncology [facility] History of Present Illness Attending Physician: Ricarda Gregorio MD History of Present Illness 12/07/2020. MRCP. 5 cm mass inferior pole of the right kidney worrisome for RCC. 02/18/2021. Kidney, right, robotic laparoscopic assisted radical nephrectomy: - Renal cell carcinoma, not otherwise specified. Grade 4 of 4. - See synoptic report. [id number]. 05/13/2021. Renal ultrasound. IMPRESSION: 1. Status post right nephrectomy. Unremarkable sonographic appearance of the left kidney. 2. Multiple enlarged upper abdominal lymph nodes, as above. These are either unchanged or slightly increased since MRCP of December 07, 2020. Although indeterminate, these are suspicious for a neoplastic process and metastatic disease is within the differential. These could be correlated with cross-sectional imaging. 06/30/2021. PET/CT. IMPRESSION: Extensive lymphadenopathy in the neck, chest, abdomen, and pelvis. In addition, there is an FDG avid pulmonary nodule in the lingula. Patient is status post right nephrectomy. 06/30/2021. Medical oncology follow-up with Dr. Shipley. Repeat labs today. Referral to pulmonology for bronchoscopy/EBUS. Discussed potential systemic therapy in future. 07/30/2021. CT of abdomen/pelvis. IMPRESSION: 1. No evidence of acute abnormality, in particular no evidence of bowel obstruction. 2. Status post right nephrectomy with redemonstration of numerous enlarged lymph nodes predominantly in the retroperitoneum. Findings are concerning for metastatic disease, these are not significantly changed from exam of 05/28/2021. 08/05/2021. Patient presents emergency room due to history of falls and dropping things and left hand. Admitted to the hospital. 08/05/2021. CT head. IMPRESSION: 1. 1.8 cm right posterior pontine lesion. This may reflect metastatic disease. MRI of the brain with and without contrast is recommended. 2. Scattered subcortical white matter hypodense foci. These probably reflect small vessel disease but can be assessed on MRI. 08/05/2021. MRI Brain. IMPRESSION: 1. There is a 2.0 cm heterogeneously enhancing mass lesion centered in the right aspect of the juan c as detailed above. There are at least 2 additional punctate enhancing intracranial lesions, and metastatic disease is favored over a primary glial neoplasm. 2. There is surrounding edema and and mass effect with mild effacement of the fourth ventricle. 3. There is no evidence of hydrocephalus. 4. There is no hemorrhage or evidence of acute ischemia. 5. Additional findings as above. Allergies Allergy/AdvReac Type Severity Reaction Status Date / Time No Known Allergies Allergy Verified 08/05/21 16:37 Home Medications Medication Instructions Recorded Confirmed Type famotidine 10 mg tablet (Acid 10 mg PO BID 01/16/21 08/05/21 History Gasser Machine Operator (famotidine)) levothyroxine 25 mcg capsule 12.5 mcg PO Q OTHER DAY 01/16/21 08/05/21 History mirtazapine 15 mg tablet 15 mg PO HS 02/12/21 08/05/21 History simvastatin 20 mg tablet 20 mg PO HS 02/12/21 08/05/21 History phenazopyridine 200 mg tablet 200 mg PO Q8H PRN #10 tab 07/14/21 08/05/21 Rx (Pyridium) tamsulosin 0.4 mg capsule 0.4 mg PO HS #30 cap 07/14/21 08/05/21 Rx lisinopril 20 mg tablet 20 mg PO QAM 07/30/21 08/05/21 History ondansetron 4 mg disintegrating 4 - 8 mg PO Q8H PRN #14 tab 07/30/21 08/05/21 Rx tablet atenolol 50 mg tablet 50 mg PO BID 08/05/21 08/05/21 History donepezil 10 mg tablet 10 mg PO HS 08/05/21 08/05/21 History Patient History Medical History (Updated 08/06/21 @ 09:08 by David Angela MD) Anxiety and depression Borderline type 2 diabetes mellitus DIET CONTROLLED Brain metastasis Cardiac murmur Pt and report chronic, deny any h/o previous echo; no available records Dementia History of CVA (cerebrovascular accident) incidental finding remote per neuro per pt's -- event unk to pt - no deficits -SECOND NEURO SAID NO EVIDENCE OF STROKE- FOLLOWS W/ [facility]- LAST VISIT SPRING 2021 History of esophageal dilatation History of skin cancer removed HLD (hyperlipidemia) HTN (hypertension) controlled, stable per pt and Hypothyroidism Poor short term memory Renal mass RIGHT KIDNEY REMOVED FEB 2021; NO CURRENT ISSUES NO RENAL INSUFFICIENCY PER PTS SPOUSE Scoliosis Surgical History H/O kidney removal FEB 2021-[facility]- NO RENAL INSUFF. LEFT KIDNEY WORKING WELL ACCORDING PTS SPOUSE. History of cataract surgery R/L History of colonoscopy History of esophagogastroduodenoscopy (EGD) History of hysterectomy History of tonsillectomy Hx of cholecystectomy 2020 S/P fine needle aspiration thyroid Family History Brother Hypertension Sister Cancer Breast Mother Cancer Breast Other No family history of adverse response to anesthesia Social History Smoking Status: Never smoker Second Hand Exposure: Yes ( X 30 YRS); Hx Alcohol Use: No Hx Substance Use: No Preferred Language: Syriac Communication Ability: Effective Air Pollution Specialist Required: No Beliefs That Will Affect Care: None marital status: Current Living Situation: Spouse current occupational status: retired Feels Safe at Home: Yes Safety Concerns: Feels Safe At This Time Assistive Devices: Walker Review of Systems Review of Systems: Weakness in left upper extremity. Forgetfulness. Physical Exam Constitutional: WD/WN, vitals as above Musculoskeletal: 3/5 strength in left upper extremity. Neurologic: patellar DTR's 2+ bilat, sensation intact and PERRL, EOMI, accommodation nl, no face palsy, no dysarthria Psychiatric: A+Ox3, euthymic affect
--- NOTE | 2021-08-06 08:11 | Hospitalist Progress Note ---
Date of Service August 06, 2021 Assessment & Plan (1) Brain metastasis: Plan: Jesica Whiteside is a 70y/o F with renal cell carcinoma who presented to the hospital with ambulatory dysfunction and weakness. Brain metastasis: -MRI brain demonstrating 2.0cm heterogeneously enhancing mass lesion in the right aspect of the juan c, with 2 additional punctacte intracranial lesions -patient right renal cell carcinoma s/p nephrectomy in February -Oncology consulted: extensive discussions with patient and family elucidating desire to proceed with treatment -Radiation/oncology consulted: recommending stereotactic radiosurgery to brain metastases starting as outpatient -neurology consulted: right pontine lesion is likely for left hemiparesis -continue with symptomatic management Ambulatory dysfunction: -patient has left hemiparesis -PT/OT consulted: recommending rehab on discharge HTN: -continue atenolol 50mg BID, and lisinopril 20mg daily Hypothyroidism: -TSH wnl -levothyroxine 12.5mg QOD Anorexia: -likely secondary to metastatic cancer -dietary consult: multivitamin w/ minerals, consideration of increasing appetite stimulants in future VTE ppx: Heparin SQ BID Diet: regular Code: Full code (2) Ambulatory dysfunction: (3) Renal cell cancer: (4) Hypothyroidism: (5) Hypertension: (6) Anorexia: Admission and Anticipated Discharge Date Admission Date: August 05, 2021 Subjective Patient notes that she had neurologist and oncologist in to see her earlier in the morning but could not recall what all was discussed. Voices no current con cerns or complaints Review of Systems Review of Systems: All systems reviewed & are unremarkable except as noted in Subjective Physical Exam Constitutional: WD/WN, vitals as above Eyes: PERRL, conjunctivae normal, anicteric sclerae Respiratory: normal respiratory effort, lungs clear to auscultation Auscultation: no crackles, no rales, no rhonchi and no wheezes Cardiovascular: Rate/Rhythm: regular rate and regular rhythm Heart Sounds: no gallop, no murmur and no cardiac rub Vessels: normal peripheral pulses; no JVD Extremities: no edema Gastrointestinal (Abdomen): Inspection/Auscultation: normal bowel sounds; abdomen not distended Percussion/Palpation: abdomen soft; abdomen nontender and no guarding Musculoskeletal: no cyanosis or clubbing, extremities motor strength 5/5 Skin: no rashes, warm and dry Neurologic: PERRL, EOMI, accommodation nl, no face palsy, no dysarthria CN's II-XI intact bilaterally and moves all extremities Psychiatric: Orientation: alert and oriented x 3 Results & Data Results & Data ([facility]) Vital Signs (Past 12 Hours) Vital Signs Temp Pulse Pulse Resp BP Pulse Ox 08/06/21 08:10 36.5 C 60 17 181/82 H 95 08/06/21 04:16 36.7 C 82 20 99/69 L 93 08/06/21 01:26 36.6 C 62 20 172/85 H 95 08/06/21 00:00 74 Laboratory Results 08/05/21 08/05/21 08/05/21 Range/Units 15:30 14:20 14:16 WBC (4.8-10.8) K/uL RBC (4.2-5.4) M/uL Hgb (12.0-16.0) g/dL Hct (37-47) % MCV (80-100) fL MCH (25-34) pg MCHC (32-36) g/dL RDW Std Deviation (36.4-46.3) fL RDW Coeff of Dez (11.5-14.5) % Plt Count (130-400) K/uL MPV (7.4-10.4) fL Immature Gran % (Auto) % Neut % (Auto) % Lymph % (Auto) % [place] % (Auto) % Eos % (Auto) % Baso % (Auto) % Neut # (Auto) (1.4-6.5) K/uL Lymph # (Auto) (1.2-3.4) K/uL [place] # (Auto) (0.11-0.59) K/uL Eos # (Auto) (0-0.5) K/uL Baso # (Auto) (0-0.2) K/uL Immature Gran # (Auto) (0.00-0.02) K/uL Sodium 138 (136-145) mmol/L Potassium 3.9 (3.5-5.1) mmol/L Chloride 102 (98-107) mmol/L Carbon Dioxide 29 (21-32) mmol/L Anion Gap 7 (3-11) BUN 15 (6-23) mg/dl Creatinine 1.21 H (0.6-1.2) mg/dl Est Cr Clr Drug Dosing 35.2 ml/min Est GFR ( Amer) 52.1 ml/min Est GFR (Non-Af Amer) 45.0 ml/min BUN/Creatinine Ratio 12.4 (10-20) Glucose 118 H (70-99(Fasting)) mg/dl POC Glucose (70-99) mg/dl Calcium 9.8 (8.5-10.1) mg/dl Total Bilirubin 0.6 (0.2-1.0) mg/dl AST 10 L (13-39) U/L ALT 9 (7-52) U/L Alkaline Phosphatase 85 (34-104) U/L Troponin I High Sens 4.2 (0-14) pg/ml Total Protein 7.9 (6.0-8.3) gm/dl Albumin 4.1 (3.4-5.0) gm/dl Globulin 3.8 (2.5-4.0) gm/dl Albumin/Globulin Ratio 1.1 (0.9-2) Lipase 20 (11-82) U/L Urine Color Yellow Urine Appearance Clear (Clear) Urine pH 6.0 (4.5-7.5) Ur Specific Brooks 1.005 (1.000-1.030) Urine Protein Negative (Negative) Urine Glucose (UA) Negative (Negative) Urine Ketones Negative (Negative) Urine Blood Negative (Negative) Urine Nitrite Negative (Negative) Urine Bilirubin Negative (Negative) Urine Urobilinogen Negative (Negative) Ur Leukocyte Esterase 1+ H (Negative) Urine WBC (Auto) 1-5 (0-5) /hpf Urine RBC (Auto) 0-4 (0-4) /hpf U Hyaline Cast (Auto) 0 (0-5) /lpf U Epithel Cells (Auto) 10-20 H (0-5) /lpf Urine Bacteria (Auto) Negative (Negative) SARS-CoV-2, RNA, NAAT NEGATIVE (NEGATIVE) 08/05/21 08/05/21 Range/Units 14:16 14:11 WBC 10.07 (4.8-10.8) K/uL RBC 4.81 (4.2-5.4) M/uL Hgb 13.4 (12.0-16.0) g/dL Hct 41.2 (37-47) % MCV 85.7 (80-100) fL MCH 27.9 (25-34) pg MCHC 32.5 (32-36) g/dL RDW Std Deviation 43.5 (36.4-46.3) fL RDW Coeff of Dez 14.1 (11.5-14.5) % Plt Count 338 (130-400) K/uL MPV 8.6 (7.4-10.4) fL Immature Gran % (Auto) 0.3 % Neut % (Auto) 72.3 % Lymph % (Auto) 13.7 % [place]air % (Auto) 11.5 % Eos % (Auto) 1.9 % Baso % (Auto) 0.3 % Neut # (Auto) 7.28 H (1.4-6.5) K/uL Lymph # (Auto) 1.38 (1.2-3.4) K/uL [place] # (Auto) 1.16 H (0.11-0.59) K/uL Eos # (Auto) 0.19 (0-0.5) K/uL Baso # (Auto) 0.03 (0-0.2) K/uL Immature Gran # (Auto) 0.03 H (0.00-0.02) K/uL Sodium (136-145) mmol/L Potassium (3.5-5.1) mmol/L Chloride (98-107) mmol/L Carbon Dioxide (21-32) mmol/L Anion Gap (3-11) BUN (6-23) mg/dl Creatinine (0.6-1.2) mg/dl Est Cr Clr Drug Dosing ml/min Est GFR ( Amer) ml/min Est GFR (Non-Af Amer) ml/min BUN/Creatinine Ratio (10-20) Glucose (70-99(Fasting)) mg/dl POC Glucose 124 H (70-99) mg/dl Calcium (8.5-10.1) mg/dl Total Bilirubin (0.2-1.0) mg/dl AST (13-39) U/L ALT (7-52) U/L Alkaline Phosphatase (34-104) U/L Troponin I High Sens (0-14) pg/ml Total Protein (6.0-8.3) gm/dl Albumin (3.4-5.0) gm/dl Globulin (2.5-4.0) gm/dl Albumin/Globulin Ratio (0.9-2) Lipase (11-82) U/L Urine Color Urine Appearance (Clear) Urine pH (4.5-7.5) Ur Specific Brooks (1.000-1.030) Urine Protein (Negative) Urine Glucose (UA) (Negative) Urine Ketones (Negative) Urine Blood (Negative) Urine Nitrite (Negative) Urine Bilirubin (Negative) Urine Urobilinogen (Negative) Ur Leukocyte Esterase (Negative) Urine WBC (Auto) (0-5) /hpf Urine RBC (Auto) (0-4) /hpf U Hyaline Cast (Auto) (0-5) /lpf U Epithel Cells (Auto) (0-5) /lpf Urine Bacteria (Auto) (Negative) SARS-CoV-2, RNA, NAAT (NEGATIVE) Diagnostic Findings Impressions Head CT 08/05/21 14:03 CT OF THE HEAD WITHOUT CONTRAST CLINICAL HISTORY: Weak. History of renal cell carcinoma. COMPARISON STUDY: No previous studies for comparison. CT DOSE: 537.48 mGy.cm TECHNIQUE: Helical axial images of the head were obtained without IV contrast. Automated exposure control was utilized for the study. A dose lowering technique was utilized adhering to the principles of ALARA. FINDINGS: No acute intracranial hemorrhage, midline shift or mass effect is present. Note is made of a mixed attenuation 1.8 cm right posterior pontine lesion shown on axial image 8 of . Ventricular system is unremarkable. Basal cisterns are patent. There are no extra-axial collections. Scattered subcortical white matter hypodense foci are present. No findings to suggest acute dural sinus thrombosis or acute territorial infarct. No significant calvarial abnormality is present. IMPRESSION: 1. 1.8 cm right posterior pontine lesion. This may reflect metastatic disease. MRI of the brain with and without contrast is recommended. 2. Scattered subcortical white matter hypodense foci. These probably reflect small vessel disease but can be assessed on MRI. ACT 112: Negative or not required by law. Electronically signed by: Mahin Collins M.D. 08/05/2021 2:40 PM Chest X-Ray 08/05/21 15:03 XR chest 1V portable HISTORY: 70 years-old Female weakness and falls acute weakness COMPARISON: Chest radiograph 02/13/2021, PET CT 06/30/2021. TECHNIQUE: Portable AP view of the chest FINDINGS: [Right bilateral hilar prominence redemonstrated. The heart is upper limits of normal in size. Mild right hemidiaphragmatic elevation. There is no pneumothorax, pleural effusion, airspace consolidation or overt pulmonary edema. Degenerative changes of the shoulders and spine. IMPRESSION: 1. No acute process. 2. Hilar adenopathy redemonstrated. ACT 112: Negative or not required by law. The above report was generated using voice recognition software. It may contain grammatical, syntax or spelling errors. Electronically signed by: Fletcher Padron M.D. 08/05/2021 3:09 PM Brain MRI 08/05/21 15:44 MRI OF THE BRAIN COMBO CLINICAL HISTORY: Intracranial mass. COMPARISON STUDY: CT of the brain dated 08/05/2021. TECHNIQUE: MRI of the brain was performed utilizing various T1 and T2-weighted sequences in the axial, sagittal, and coronal planes. Contrast-enhanced sequences were acquired following the administration of 5.5 cc of Gadavist. FINDINGS: Brain parenchyma: There is age-related involutional change noting mild subcortical and periventricular microangiopathic disease. There is a 1.6 x 1.5 x 2.0 cm heterogeneously enhancing mass lesion centered in the right aspect of the juan c. This is best seen on axial postcontrast image #43 of 132. There is surrounding edema, with mild effacement of the fourth ventricle. An additional punctate enhancing lesion is seen in the left occipital lobe on image #62, and a punctate enhancing lesion in the right frontal lobe is seen on image #105. There is no hemorrhage or mass effect. There is no restricted diffusion typical for acute ischemia. No extra-axial fluid collection is seen. The cerebellar tonsils are normal in configuration. Ventricles, sulci, and cisterns: Prominent secondary to involutional change. Pituitary and sella: Unremarkable. Intracranial vasculature: Normal flow voids are maintained at the skull base. Orbits: The bony orbits are grossly intact. Orbital contents are normal in appearance noting bilateral ocular lens implants. Sinuses and mastoids: Clear. Calvarium: Unremarkable. Cervical cord: Partially visualized cervical spinal cord is normal in morphology and signal intensity. IMPRESSION: 1. There is a 2.0 cm heterogeneously enhancing mass lesion centered in the right aspect of the juan c as detailed above. There are at least 2 additional punctate enhancing intracranial lesions, and metastatic disease is favored over a primary glial neoplasm. 2. There is surrounding edema and and mass effect with mild effacement of the fourth ventricle. 3. There is no evidence of hydrocephalus. 4. There is no hemorrhage or evidence of acute ischemia. 5. Additional findings as above. ACT 112: Negative or not required by law. Electronically signed by: Barrera Henderson M.D. 08/05/2021 6:34 PM Medications Administered Current Inpatient Medications Acetaminophen (Acetaminophen 325 Mg Tab) 650 mg PO Q4H PRN PRN Reason: Pain or Fever Stop: 09/04/21 19:49 Atenolol (Atenolol 50 Mg Tablet) 50 mg PO BID DARIA Stop: 09/04/21 20:59 Last Admin: 08/06/21 11:04 Dose: 50 mg Documented by: Donepezil HCl (Donepezil Hcl 10 Mg Tab) 10 mg PO HS DARIA Stop: 09/04/21 20:59 Last Admin: 08/05/21 22:46 Dose: 10 mg Documented by: Famotidine (Famotidine 10 Mg Tablet) 10 mg PO BID DARIA Stop: 09/04/21 20:59 Last Admin: 08/06/21 09:16 Dose: 10 mg Documented by: Heparin Sodium (Porcine) (Heparin Sod 5,000 Unit/0.5 Ml Vial) 5,000 units SQ BID DARIA Stop: 09/04/21 21:29 Last Admin: 08/06/21 09:16 Dose: 5,000 units Documented by: Dexamethasone 4 mg/ Syringe 1 mls @ 1 mls/min IV Q6H DARIA Stop: 09/05/21 00:00 Last Admin: 08/06/21 11:06 Dose: 1 mls/min Documented by: Lactated Ringer's (Lr) 1,000 mls @ 125 mls/hr IV .Q8H DARIA Stop: 09/04/21 21:14 Last Admin: 08/06/21 05:54 Dose: 125 mls/hr Documented by: Levothyroxine Sodium (Levothyroxine Sodium 25 Mcg Tablet) 12.5 mcg PO Q2D@0630 DARIA Stop: 09/05/21 06:29 Last Admin: 08/06/21 05:54 Dose: 12.5 mcg Documented by: Lisinopril (Lisinopril 20 Mg Tab) 20 mg PO [facility] Stop: 09/05/21 08:59 Last Admin: 08/06/21 09:16 Dose: 20 mg Documented by: Mirtazapine (Mirtazapine Tab 15 Mg Tab) 15 mg PO [facility] Stop: 09/04/21 20:59 Last Admin: 08/05/21 22:45 Dose: 15 mg Documented by: Ondansetron HCl (Ondansetron Inj 2 Mg/Ml 2 Ml Vial) 4 mg IV Q4H PRN PRN Reason: Nausea Stop: 09/04/21 19:49 Last Admin: 08/06/21 11:07 Dose: 4 mg Documented by: Pantoprazole Sodium (Pantoprazole 40 Mg Tab) 40 mg PO [facility] Stop: 09/05/21 08:59 Last Admin: 08/06/21 09:16 Dose: 40 mg Documented by: Simvastatin (Simvastatin 20 Mg Tab) 20 mg PO [facility] Stop: 09/04/21 20:59 Last Admin: 08/05/21 22:45 Dose: 20 mg Documented by: Tamsulosin HCl (Tamsulosin Hcl 0.4 Mg Cap) 0.4 mg PO [facility] Stop: 09/04/21 20:59 Last Admin: 08/05/21 22:46 Dose: 0.4 mg Documented by: Resident Activity Tracking Resident Involvement: Resident Care Provided Care Provided: Adult Hospital Medicine
--- NOTE | 2021-08-06 08:55 | Neurology Consultation ---
Date of Consultation August 06, 2021 Assessment & Plan (1) Brain metastasis: (2) Left hemiparesis: (3) Dementia: 70-year-old female with subacute decline, weakness, poor p.o. intake, occurring in the context of renal cell carcinoma, now found to have metastatic brain lesions, prominent metastatic deposit within the right hemipons as well as 2 smaller mets within the cerebrum, right frontal lobe, left occipital lobe. The right pontine lesion is responsible for this patient's mild left hemiparesis characterized by left upper extremity proximal weakness, associated pronator drift, and dysmetria with [id number] on the left, also has impaired [id number] on the left and an upgoing left plantar response. The smaller metastatic deposits are asymptomatic. Does not appear to have an obvious left facial droop or signs signs or symptoms suggestive of other cranial neuropathy, no 6th nerve palsy, no internuclear ophthalmoplegia, no dysarthria. Again, she is a poor historian due to what appears to be a mild to moderate dementia at baseline. Case discussed with oncology at bedside this morning, plan for stereotactic radiosurgery to address the brain mets. Would also need whole brain radiation therapy. Agree with dexamethasone. No indication for prophylactic seizure medication. Patient may continue with donepezil to address her dementia. May continue with mirtazapine at bedtime as well. No need for additional neurological evaluation at this time. Management of patient's brain mets to be managed by the oncology service. If she were to develop significant change in neurologic status going forward, I would be happy to reassess her. History of Present Illness Reason for Consultation: renal cell met to brain Requesting Physician: Trace Mcintyre MD Attending Physician: Ricarda Gregorio MD History of Present Illness The patient is a 70-year-old female with a history of fairly recently diagnosed renal cell carcinoma who presented to the emergency department yesterday for further assessment of subacute generalized weakness, poor p.o. intake, difficulty walking, several falls. Past medical history notable for dementia. Patient is a somewhat unreliable historian. She denies experiencing any headache, vision disturbance, change in speech or swallowing, loss of consciousness, seizure-like episodes, vertigo or dizziness. She was found to have a 2 cm enhancing mass within the right hemipons as well as 2 smaller intracranial lesions worrisome for metastatic disease in light of her history of renal cell carcinoma. Neurology and radiation oncology have been consulted. Allergies Allergy/AdvReac Type Severity Reaction Status Date / Time No Known Allergies Allergy Verified 08/05/21 16:37 Home Medications Medication Instructions Recorded Confirmed Type famotidine 10 mg tablet (Acid 10 mg PO BID 01/16/21 08/05/21 History [place] (famotidine)) levothyroxine 25 mcg capsule 12.5 mcg PO Q OTHER DAY 01/16/21 08/05/21 History mirtazapine 15 mg tablet 15 mg PO HS 02/12/21 08/05/21 History simvastatin 20 mg tablet 20 mg PO HS 02/12/21 08/05/21 History phenazopyridine 200 mg tablet 200 mg PO Q8H PRN #10 tab 07/14/21 08/05/21 Rx (Pyridium) tamsulosin 0.4 mg capsule 0.4 mg PO HS #30 cap 07/14/21 08/05/21 Rx lisinopril 20 mg tablet 20 mg PO QAM 07/30/21 08/05/21 History ondansetron 4 mg disintegrating 4 - 8 mg PO Q8H PRN #14 tab 07/30/21 08/05/21 Rx tablet atenolol 50 mg tablet 50 mg PO BID 08/05/21 08/05/21 History donepezil 10 mg tablet 10 mg PO HS 08/05/21 08/05/21 History Patient History Medical History (Updated 08/06/21 @ 09:08 by David Angela MD) Anxiety and depression Borderline type 2 diabetes mellitus DIET CONTROLLED Brain metastasis Cardiac murmur Pt and report chronic, deny any h/o previous echo; no available records Dementia History of CVA (cerebrovascular accident) incidental finding remote per neuro per pt's -- event unk to pt - no deficits -SECOND NEURO SAID NO EVIDENCE OF STROKE- FOLLOWS W/ [facility]- LAST VISIT SPRING 2021 History of esophageal dilatation History of skin cancer removed HLD (hyperlipidemia) HTN (hypertension) controlled, stable per pt and Hypothyroidism Poor short term memory Renal mass RIGHT KIDNEY REMOVED FEB 2021; NO CURRENT ISSUES NO RENAL INSUFFICIENCY PER PTS SPOUSE Scoliosis Surgical History H/O kidney removal FEB 2021-[facility]- NO RENAL INSUFF. LEFT KIDNEY WORKING WELL ACCORDING PTS SPOUSE. History of cataract surgery R/L History of colonoscopy History of esophagogastroduodenoscopy (EGD) History of hysterectomy History of tonsillectomy Hx of cholecystectomy 2020 S/P fine needle aspiration thyroid Family History Brother Hypertension Sister Cancer Breast Mother Cancer Breast Other No family history of adverse response to anesthesia Social History Smoking Status: Never smoker Second Hand Exposure: Yes ( X 30 YRS); Hx Alcohol Use: No Hx Substance Use: No Preferred Language: Kyrgyz Communication Ability: Effective Wedding Designer Required: No Beliefs That Will Affect Care: None marital status: Current Living Situation: Spouse current occupational status: retired Feels Safe at Home: Yes Safety Concerns: Feels Safe At This Time Assistive Devices: Walker Review of Systems Constitutional: + fatigue and + weakness; no fever and no chills Eyes: no blind spots and no diplopia Ear, Nose, Mouth, Throat: no ear pain and no hearing loss Respiratory: no cough and no dyspnea Cardiovascular: no chest pain and no palpitations Gastrointestinal: no constipation and no diarrhea/loose stools Genitourinary: no urinary urgency and no urinary incontinence Musculoskeletal: no muscle weakness and no muscle atrophy Integumentary: no rash and no lesions Neurologic: as per Subjective / HPI, + unsteadiness and + memory loss; no tremor(s), no seizure-like activity, no syncope and no headache(s) Psychiatric: no behavioral changes, no depression, no abnormal sleep pattern and no anxiety Hematologic / Lymphatic: no easy bruising and no lymphadenopathy Exam (Neuro) Constitutional: well developed and well nourished; no acute distress Eyes: normal visual parra by confrontation, PERRL, normal accommodation and EOM intact bilaterally; no fundoscopic abnormality, no nystagmus and no papilledema Cardiovascular: Vessels: normal carotid upstroke; no carotid bruit Neurologic: Oriented to:: Person and Place; negative Time Memory: Remote Intact; negative Short Term Intact Attention: Span Intact; negative Concentration Intact Language: Naming Objects and Repeating Phrases Speech Fluency: negative Dysarthria Speech Aphasia: negative Aphasia Fund of Knowledge: Past History and Vocabulary; negative Current Events Cranial Nerves: Normal II (Visual parra full to confrontation, visual acuity normal), III, IV, (Pupils equal round reactive to light and accommodation, eye movements normal), V (Facial sensation intact), VII (There is no facial droop or weakness), VIII (Hearing intact), IX, X (Palate elevates to midline), XI (Shoulder shrug intact) and XII (Tongue protrudes to midline) Motor Strength: Normal Lower Extremities and Pronator Drift Laterality: Left; negative Normal Upper Extremities (Left upper extremity mildly weak, 4+/5) Motor Tone: Normal Lower Extremities and Normal Upper Extremities Muscle Bulk/Involuntary Movements: No Involuntary Movements; negative Muscle Atrophy Sensation: Light Touch Intact, Pain/Temperature Intact, Vibration Intact and Proprioception Intact Coordination: Normal, Finger-Nose Abnormal Laterality: Left and Heel- Christensen Abnormal Laterality: Left; negative Limited Balance or Dysdiadochokinesia Deep Tendon Reflexes: Rt Triceps: 2+, Lt Triceps: 2+, Rt Biceps: 2+, Lt Biceps: 2+, Rt Brachioradialis: 2+, Lt Brachioradialis: 2+, Rt Patellar: 2+, Lt Patellar: 2+, Rt Ankle: 1+ and Lt Ankle: 1+ Special Tests: Babinski Present (left) Details: Gait cannot be tested in the context of patient's current neurological status. Results & Data ([facility]) Vital Signs (Past 12 Hours) Vital Signs Temp Pulse Pulse Resp BP Pulse Ox 08/06/21 08:10 36.5 C 60 17 181/82 H 95 08/06/21 04:16 36.7 C 82 20 99/69 L 93 08/06/21 01:26 36.6 C 62 20 172/85 H 95 08/06/21 00:00 74 Laboratory Results WBC 10.07, hemoglobin 13.4, hematocrit 41.2, MCV 85.7, platelet count 338, sodium 138, potassium 3.9, BUN 15, creatinine 1.21, glucose 118, calcium 9.8, AST 10, ALT 9, SARS-CoV-2 RNA negative, vitamin B12 from this past February was 438, a TSH was 1.[address] of the head completed yesterday revealed a 1.8 cm right pontine lesion potentially consistent with metastatic disease. Follow-up gadolinium-enhanced brain MRI again revealed the pontine lesion, measuring 2 cm, heterogeneously enhancing, right hemipons. 2 additional punctate enhancing lesions identified as well, 1 within the left occipital lobe, the other within the right frontal lobe. The pontine lesion results in mild effacement of the fourth ventricle due to edema/mass-effect. No hydrocephalus. No hemorrhage or acute ischemia. I reviewed the images as well as the radiologist interpretation of these test and was able to appreciate these findings. Electrocardiogram completed yesterday revealed sinus bradycardia, 56 bpm. Coding Level of Care Code 60398 Initial Inpt Care Lvl 3 Diagnoses Brain metastasis C79.31 Left hemiparesis G81.94 Dementia F03.90
[2021-08-06] MEDS ORDERED: lisinopril 20 MG TAB PO SCH (09:00)
[2021-08-06] MEDS ORDERED: PANTOprazole 40 MG TAB PO SCH (09:00)
[2021-08-06] MEDS: FAMOTIDINE 10 MG TABLET PO SCH (09:16)
[2021-08-06] MEDS: HEPARIN SOD 5,000 UNIT/0.5 ML VIAL SQ SCH (09:16)
--- NOTE | 2021-08-06 09:43 | Electrocardiogram Report ---
Test Reason : Blood Pressure : / mmHG Vent. Rate : 056 BPM Atrial Rate : 056 BPM P-R Int : 180 ms QRS Dur : 084 ms QT Int : 430 ms P-R-T Axes : 063 001 040 degrees QTc Int : 414 ms Poor data quality, interpretation may be adversely affected Sinus bradycardia Otherwise normal ECG When compared with ECG of 13-FEB-2021 14:52, No significant change was found Confirmed by Jhonatan Rae ([id number]) on 08/06/2021 9:42:55 AM Referred By: REFERRED SELF Confirmed By:Jhonatan Rae
[2021-08-06] MEDS: ATENOLOL 50 MG TABLET PO SCH (11:04)
--- NOTE | 2021-08-06 13:28 | Consultation Report ---
DATE OF SERVICE: 08/06/2021. REASON FOR CONSULTATION: Renal cell carcinoma with brain metastasis. HISTORY OF PRESENT ILLNESS: Ms. Whiteside is a very pleasant 70-year-old female with medical history significant for renal cell carcinoma for which she is status post right robotic laparoscopic assisted radical nephrectomy on 02/18/2021. The patient is known to me in oncology clinic as I initially evaluated her on 06/30/2021 for possible metastatic renal cell carcinoma. At that time, recommended obtaining bronchoscopy/EBUS to confirm metastatic disease. The patient, however, presented to the ER yesterday with complaints of worsening left hand weakness, balance issues, numbness of her lips, tingling on her left side, and speech changes. CT head obtained while in the ER on 07/28/2021 revealed 1.8 cm right posterior pontine lesion, likely representing metastatic disease as well as scattered subcortical white matter hypodense foci. Brain MRI on 07/28/2021 revealed 2 cm heterogeneously enhancing mass lesion in the right aspect of the juan c as well as at least 2 additional punctate enhancing intracranial lesions suspicious for metastatic disease. Also noted was surrounding edema and mass effect with mild effacement of the fourth ventricle. The patient was started on dexamethasone, which she remains on at this time. During my evaluation of the patient today, she denies any complaints. She denies chest pain, shortness of breath, abdominal pain, nausea, vomiting, headaches, or dizziness. Most of the history was obtained from her , Cam, who I spoke to over the phone. He indicates that the patient has complained of progressively worsening left hand weakness leading to dropping of several objects more recently. Also, complains of tingling on the left side, speech changes, numbness of her lips, worsening balance issues. Her also indicates that he has noticed slight worsening in baseline dementia after she was recently seen in the ED for bladder stones. HOME MEDICATIONS: 1. Famotidine 10 mg p.o. b.i.d. 2. Levothyroxine 12.5 mcg p.o. every other day. 3. Mirtazapine 50 mg p.o. at bedtime. 4. Simvastatin 20 mg p.o. at bedtime. 5. Pyridium 200 mg p.o. q. 8 hours. 6. Tamsulosin 0.4 mg p.o. at bedtime. 7. Lisinopril 20 mg p.o. every day. 8. Zofran as needed. 9. Atenolol 50 mg p.o. b.i.d. 10. Donepezil 10 mg p.o. at bedtime. ALLERGIES: No known drug allergies. PAST MEDICAL HISTORY: 1. Diabetes mellitus. 2. Dementia. 3. CVA. 4. Renal cell cancer. 5. Hypertension. 6. Hyperlipidemia. 7. Hypothyroidism. PAST SURGICAL HISTORY: 1. Nephrectomy. 2. Hysterectomy. 3. Cholecystectomy. 4. Tonsillectomy. FAMILY HISTORY: Significant for breast cancer in her sister and her mother. SOCIAL HISTORY: Denies smoking, alcohol and illicit drug use. REVIEW OF SYSTEMS: Negative as mentioned above. PHYSICAL EXAMINATION: VITAL SIGNS: Blood pressure 172/89, heart rate 63, respiratory rate 18, temperature 36.5, oxygen saturation 96% on room air. CONSTITUTIONAL: In no obvious distress. EYES: Without conjunctival erythema or icterus. NECK: Negative for palpable masses. RESPIRATORY: Lung sounds were clear bilaterally. CARDIOVASCULAR: Heart was regular rate and rhythm without significant murmur, gallops, or rubs. GASTROINTESTINAL: Abdomen was soft with normal bowel sounds. No palpable hepatosplenomegaly. LYMPHATIC SYSTEM: No palpable peripheral lymphadenopathy. MUSCULOSKELETAL: Unremarkable. EXTREMITIES: Negative for edema. ASSESSMENT AND PLAN: 1. Right renal cell carcinoma, status post right robotic laparoscopic assisted radical nephrectomy on 02/18/2021. 2. Brain metastasis. 3. Extensive lymph node metastasis. A very pleasant 70-year-old female with history of right renal cell carcinoma, NOS, who is status post radical nephrectomy. She presented with neurologic symptoms and was found to have brain metastasis with edema. Based on this, she likely has stage IV renal cell carcinoma for which I discussed prognosis with the patient's , Cam, over the phone. Also discussed potential treatment options with the patient including, but not limited to, supportive care/hospice or active treatment with combination TKI and immunotherapy. Following our discussion, her indicated that they would like to go ahead with treatment. Will therefore recommend starting pembrolizumab plus Axitinib (Inlyta) based on improved overall survival and PFS advantage noted in keynote 426 trial. Discussed potential side effects of treatment with the patient's . The patient will be seen in oncology clinic upon discharge from hospital to further discuss potential side effects of treatment. She does not require a MediPort since she only will be receiving pembrolizumab IV and Axitinib will be given by mouth. Would recommend optimizing blood pressure given potential risk of worsening hypertension with Axitinib. Agree with radiation oncology consultation for stereotactic brain radiation. Also agree with high-dose steroids at this time given significant vasogenic edema. Thank you for this consult. Oncology will continue following the patient while in the hospital and see her on discharge. Please feel free to call if you have any further questions. Job ID: [id number] [facility]ITALAdrian
--- NOTE | 2021-08-06 17:04 | Discharge Summary ---
Date of Service August 06, 2021 Admission HPI Per Admitting Provider Jesica Whiteside is a 70 year old female with renal cell carcinoma who presents to the ER with ambulatory dysfunction and weakness. Her reports symptoms have progressively been getting worse for the last month and they were here in the ER with the same symptoms on July 30, 2021. Associated severely reduced appetite without dysphagia or odynophagia and weigh loss. She has chronic intermittent abdominal pain which she relates to her prior surgery but none currently. No diarrhea, nausea or vomiting. Main concern is her ambulatory dysfunction. She has noticed she is using her right side a lot more and has been dropping objects with her left hand. She denies any vision, speech or hearing changes. She has fallen three times in the last 24 hours but denies any head, neck, wrist, hip or ankle pain from these falls. In the ER CT head was concerning for 1.8cm right posterior pontine lesion concerning for metastatic disease. She was referred to medicine for admission and ongoing management of this. Principal Diagnosis brain metastasis Discharge Exam Constitutional WD/WN, vitals as above Eyes PERRL, conjunctivae normal, anicteric sclerae Respiratory normal respiratory effort, lungs clear to auscultation Auscultation: no crackles, no rales, no rhonchi and no wheezes Cardiovascular Rate/Rhythm: regular rate and regular rhythm Heart Sounds: no gallop, no murmur and no cardiac rub Vessels: normal peripheral pulses; no JVD Extremities: no edema Gastrointestinal (Abdomen) Inspection/Auscultation: normal bowel sounds; abdomen not distended Percussion/Palpation: abdomen soft; abdomen nontender and no guarding Musculoskeletal no cyanosis or clubbing, extremities motor strength 5/5 Skin no rashes, warm and dry Neurologic PERRL, EOMI, accommodation nl, no face palsy, no dysarthria CN's II-XI intact bilaterally and moves all extremities Psychiatric Orientation: alert and oriented x 3 Discharge Data Allergies Allergy/AdvReac Type Severity Reaction Status Date / Time No Known Allergies Allergy Verified 08/05/21 16:37 Consultations 08/05/21 15:27 ED Decision to Admit Stat 08/05/21 19:50 Consult Neurology Routine Consult Oncology Routine Consult Radiation Oncology Routine Ordered Studies 08/05/21 14:03 CT head/brain wo con Stat 08/05/21 15:44 MR brain wo/w con Stat 08/06/21 CT guide rad therapy head Routine Hospital Course (1) Brain metastasis: Jesica Whiteside is a 70y/o F with renal cell carcinoma who presented to the hospital with ambulatory dysfunction and weakness. Brain metastasis: Hemiplegia affecting left dominant side: -MRI brain demonstrating 2.0cm heterogeneously enhancing mass lesion in the right aspect of the juan c, with 2 additional punctacte intracranial lesions -patient with h/o right renal cell carcinoma s/p nephrectomy in February -Oncology consulted: extensive discussions with patient and family elucidating desire to proceed with treatment -Radiation/oncology consulted: recommending stereotactic radiosurgery to brain metastases starting as outpatient -neurology consulted: right pontine lesion is likely source of left-sided hemiparesis/dysfunction -continue decadron 4mg q6h until seen by radiation oncology for subsequent radiation treatments with then gradual taper. -continue protonix 40mg BID while on high dose steroids Ambulatory dysfunction: -patient has left hemiparesis -PT/OT consulted: recommending rehab on discharge -family declined rehab at this time in favor of determining how she faired at home before consideration of rehab, additionally declined home health services HTN: -continue atenolol 50mg BID, and lisinopril 20mg daily Hypothyroidism: -TSH wnl -continue levothyroxine 12.5mg QOD Anorexia: -likely secondary to metastatic cancer -dietary consult: multivitamin w/ minerals, consideration of increasing appetite stimulants in future (2) Ambulatory dysfunction: (3) Renal cell cancer: (4) Hypothyroidism: (5) Hypertension: (6) Anorexia: Total Time Total Time Spent Total Time Spent (In Minutes): 30 Discharge Plan Discharge Items Patient Disposition: Home - Self-Care Reason For Visit: BRAIN MASS Discharge Diagnosis: brain metastasis Activity: Per Instructions section Non-emergency contact: Primary Care Provider and Oncologist Call non-emergency contact if: you have any medication questions, your symptoms worsen and your pain is worsening Follow-up/Referrals: Vijay Diaz MD [Primary Care Provider] - Diet: Regular Addtl Attending Provider Instructions: You were seen and admitted for concerns of left sided weakness that had progressed over the last month. During this evaluation it was discovered that you had the development of a lesion in your brain concerning for metastatic disease of your renal cell cancer. For this you have been started on two medications that you will need to continue to take daily until you are seen by the radiation team and able to start treatments, these are: decadron 4mg that you should take four times a day, and another is pantoprazole that you should take twice a day in addition to your normal medications. You will have follow-up in the coming weeks with Dr. Cohen and Dr. Shipley in order to start the next course/phase of treatment for you. Pending Studies at Discharge: No Stand-Alone Forms: My [facility], Smoking Cessation Medications and DC Order Prescriptions: New dexamethasone [Decadron] 4 mg tablet 4 mg PO Q6H 30 Days Qty: 120 RF: 0 pantoprazole [Protonix] 40 mg tablet,delayed release (DR/EC) 40 mg PO BID 30 Days Qty: 60 RF: 0 Continued levothyroxine 25 mcg capsule 12.5 mcg PO Q OTHER DAY RF: 0 famotidine [Acid Associate Embalmer/Funeral Director (famotidine)] 10 mg tablet 10 mg PO BID RF: 0 phenazopyridine [Pyridium] 200 mg tablet 200 mg PO Q8H PRN (Reason: pain) Qty: 10 RF: 0 tamsulosin 0.4 mg capsule 0.4 mg PO HS Qty: 30 RF: 0 simvastatin 20 mg Tablet 20 mg PO HS RF: 0 mirtazapine 15 mg Tablet 15 mg PO HS RF: 0 lisinopril 20 mg tablet 20 mg PO QAM RF: 0 ondansetron 4 mg tablet,disintegrating 4 - 8 mg PO Q8H PRN (Reason: nausea and vomiting) Qty: 14 RF: 0 donepezil 10 mg tablet 10 mg PO HS RF: 0 atenolol 50 mg tablet 50 mg PO BID RF: 0 Discharge Orders: Discharge Order (Routine); Ordered 08/06/21 Ordered By: Garett Carlton Admission Data Admit Date/Time: 08/05/21 16:17 Attending Provider: Ricarda Gregorio Admit Provider: Trace Mcintyre Primary Care Provider: Vijay Diaz Other Providers: Trace Mcintyre ; David Angela ; Makayla Shipley ; Jenaro Cohen Other Interventions: Discharge Summary Assessment (RN) Last Done: 08/06/21 16:50 Supervising Physician Co-Signing Physician Notes Resident Physician Supervision Note: I independently interviewed and examined the patient and verified the valverde history and physical, reviewed labs and image studies and agree with resident Dr. Carlton findings and care plan. Resident Activity Tracking Resident Involvement: Resident Care Provided Care Provided: [facility]
[2021-08-07] MEDS ORDERED: CEROVITE ADV FORMULA TAB PO SCH (09:00)
== END 2021-08-06 18:08 | disposition home or self-care (01) | DRG 55 ==
LOC: ED 13:45 → SUATTDRO 16:17 → 2N 16:17

== ENCOUNTER 2021-08-22 11:10 | Inpatient (IN) ==
--- NOTE | 2021-08-22 11:55 | Emergency Department Note ---
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 She is undergoing chemotherapy as well as radiation therapy. She attempted to have radiation therapy last week but she was uncooperative and so the plan is to have it done next week under general anesthesia. The patient is brought in today by her because he states that she has not been eating or drinking very much for weeks. Today she became increasingly confused. She has been very weak and has not gotten out of bed for the past 2 days. He does state that she has been developing dementia over the past 5 years. Today she was not making any sense and refused to take her medication. She states that she feels fine. She denies any headache, fever, chest pain, shortness of breath, abdominal pain, vomiting, diarrhea or pain with urination. Her states that she has been coughing slightly. He also states that she does not know when she urinates sometimes. Home Medications Medication Instructions Recorded Confirmed Type famotidine 10 mg tablet (Acid 10 mg PO BID 01/16/21 08/22/21 History Filler And Trimmer (famotidine)) levothyroxine 25 mcg capsule 12.5 mcg PO Q OTHER DAY 01/16/21 08/22/21 History mirtazapine 15 mg tablet 15 mg PO HS 02/12/21 08/22/21 History simvastatin 20 mg tablet 20 mg PO HS 02/12/21 08/22/21 History phenazopyridine 200 mg tablet 200 mg PO Q8H PRN pain #10 tabs 07/14/21 08/22/21 Rx (Pyridium) tamsulosin 0.4 mg capsule 0.4 mg PO HS #30 caps 07/14/21 08/22/21 Rx lisinopril 20 mg tablet 20 mg PO QAM 07/30/21 08/22/21 History ondansetron 4 mg disintegrating 4 - 8 mg PO Q8H PRN nausea and 07/30/21 08/22/21 Rx tablet vomiting #14 tabs atenolol 50 mg tablet 50 mg PO BID 08/05/21 08/22/21 History donepezil 10 mg tablet 10 mg PO HS 08/05/21 08/22/21 History pantoprazole 40 mg tablet,delayed 40 mg PO BID 30 days #60 tabs 08/06/21 08/22/21 Rx release (Protonix) lorazepam 0.5 mg tablet 0.5 mg buccal .COMPLEX #3 tabs 08/07/21 08/22/21 Rx lorazepam 0.5 mg tablet 0.5 mg PO .COMPLEX PRN anxiety #4 08/18/21 08/22/21 Rx tabs diazepam 5 mg tablet (Valium) 5 mg PO .COMPLEX PRN anxiety #3 08/20/21 08/22/21 Rx tabs axitinib 5 mg tablet (Inlyta) 5 mg PO BID 08/22/21 08/22/21 History Allergies Allergy/AdvReac Type Severity Reaction Status Date / Time No Known Allergies Allergy Verified 08/22/21 15:08 Past Med/Surg History Medical History Anxiety and depression Borderline type 2 diabetes mellitus DIET CONTROLLED Brain metastasis plan for whole brain radiation therapy Cardiac murmur Pt and report chronic, deny any h/o previous echo; no available records Dementia History of CVA (cerebrovascular accident) incidental finding remote per neuro per pt's -- event unk to pt - no deficits -SECOND NEURO SAID NO EVIDENCE OF STROKE- FOLLOWS / [facility]- LAST VISIT SPRING 2021 History of esophageal dilatation History of skin cancer removed HLD (hyperlipidemia) HTN (hypertension) controlled, stable per pt and Hypothyroidism Left hemiparesis Poor short term memory Renal cancer brain mets Scoliosis Surgical History History of cataract surgery R/L History of colonoscopy History of esophagogastroduodenoscopy (EGD) History of hysterectomy History of nephrectomy, right 02/17/21: Grade 2 view, MAC 3, ETT 7.0. History of tonsillectomy Hx of cholecystectomy 2020 S/P fine needle aspiration thyroid Family History Brother Hypertension Sister Cancer Breast Mother Cancer Breast Other No family history of adverse response to anesthesia Social History Smoking Status: Unknown if ever smoked Second Hand Exposure: Yes ( X 30 YRS); Hx Alcohol Use: No Hx Substance Use: No Preferred Language: Vincentian Communication Ability: Effective Cut Out Stitcher Required: No Beliefs That Will Affect Care: None marital status: Current Living Situation: Spouse current occupational status: retired Feels Safe at Home: Yes Assistive Devices: None Review of Systems See HPI for pertinent positives & negatives. and A total of 10 systems reviewed and were otherwise negative Physical Exam Vital Signs Vital Signs - 24 hr 08/22/21 11:25 08/22/21 12:15 08/22/21 12:00 Temperature 36.7 C Temperature Source Oral Pulse Rate 52 L Pulse Rate from SpO2 Sensor Pulse Rhythm Regular Pulse Strength Normal Respiratory Rate 20 Respiratory Depth Normal Respiratory Pattern Regular Blood Pressure 165/100 H 127/79 Blood Pressure Mean 121 95 Blood Pressure Position Sitting Pulse Oximetry 95 97 Oxygen Delivery Method Room Air Room Air Sepsis Recent Fever Within 48 Hours No Sepsis New/Unexplained Change in Mental Status No Sepsis Action Taken by Nursing No Action Required 08/22/21 12:00 08/22/21 13:00 08/22/21 14:00 Temperature Temperature Source Pulse Rate 58 L 56 L Pulse Rate from SpO2 Sensor 61 Pulse Rhythm Pulse Strength Respiratory Rate 14 14 Respiratory Depth Respiratory Pattern Blood Pressure 120/73 122/76 Blood Pressure Mean 88 91 Blood Pressure Position Pulse Oximetry 97 95 Oxygen Delivery Method Sepsis Recent Fever Within 48 Hours Sepsis New/Unexplained Change in Mental Status Sepsis Action Taken by Nursing 08/22/21 14:00 Temperature Temperature Source Pulse Rate 52 L Pulse Rate from SpO2 Sensor 52 L Pulse Rhythm Pulse Strength Respiratory Rate 19 Respiratory Depth Respiratory Pattern Blood Pressure Blood Pressure Mean Blood Pressure Position Pulse Oximetry 97 Oxygen Delivery Method Sepsis Recent Fever Within 48 Hours Sepsis New/Unexplained Change in Mental Status Sepsis Action Taken by Nursing Constitutional: Vital signs reviewed. The patient keeps her eyes closed during the H&P. She will answer simple yes and no questions but will not cooperate with commands. Eyes: Pupils are equal round reactive to light. Conjunctiva are noninjected. ENT: Pharynx is clear without erythema or exudate. Mucous membranes are dry. Neck supple without meningeal signs. Respiratory: Clear to auscultation bilaterally. Breath sounds are equal bilaterally. Cardiovascular: Regular rate and rhythm. No rubs or gallops. GI: Soft, nondistended and nontender. Bowel sounds are present. Musculoskeletal: No peripheral edema. No lower extremity tenderness. Integumentary: No cyanosis. or jaundice. Neurological: The patient is awake and alert. Slight asymmetry on the left lower cheek at rest. Will not cooperate with exam to assess further. The patient is oriented to person and place only. She knows she is in a hospital but does not know which 1. She does note that she lives in [place]. Psychiatric: Unable to assess. Patient states "can you please just leave me alone?" Course Administered Medications Sodium Chloride (Nss) 500 mls @ 125 mls/hr IV .Q4H DARIA Stop: 09/21/21 11:59 Last Admin: 08/22/21 12:50 Dose: 125 mls/hr Documented By: LUCIAN Lorazepam 0.5 mg/ Syringe 0.5 mls @ 2 mls/min IV Q6H PRN PRN Reason: Anxiety Stop: 09/21/21 16:35 Last Admin: 08/22/21 16:55 Dose: 2 mls/min Documented By: LUCIAN Discontinued Medications Dexamethasone (Dexamethasone 4 Mg Tab) 4 mg PO NOW ONE Stop: 08/22/21 12:12 Last Admin: 08/22/21 12:50 Dose: Not Given Documented By: LUCIAN Dexamethasone (Dexamethasone Sod Inj 4 Mg/Ml Vial) 4 mg IV NOW STA Stop: 08/22/21 12:37 Last Admin: 08/22/21 12:50 Dose: 4 mg Documented By: LUCIAN Lorazepam (Lorazepam 2 Mg/1 Ml Vial) 0.5 mg IV NOW STA; Protocol Stop: 08/22/21 12:37 Last Admin: 08/22/21 12:50 Dose: 0.5 mg Documented By: LUCIAN Lorazepam (Lorazepam 2 Mg/1 Ml Vial) Confirm Administered Dose 1 mg .ROUTE .STK- MED ONE Stop: 08/22/21 16:53 Last Admin: 08/22/21 16:55 Dose: Not Given Documented By: LUCIAN Medical Decision Making Differential Diagnosis Intracranial hemorrhage, dementia, metabolic derangement, encephalopathy, ABBEY, dehydration, UTI, pneumonia Medical Records Attestation: I reviewed the patient's medical records. I did perform a limited focused review of portions of the patient's old chart on the electronic medical record. The patient was admitted to the hospital last month for renal cell carcinoma with new mets to the brain. She was seen here August 12 for failure to thrive and inquired about palliative care. She was discharged home. Home Medications Current Medication List: was personally reviewed by me Laboratory Data Attestation: I reviewed the patient's lab results. Result diagrams: 08/22/21 11:21 08/22/21 11:21 Lab Results 08/22/21 08/22/21 08/22/21 Range/Units 11:21 11:21 11:21 WBC 14.19 H (4.8-10.8) K/ul RBC 5.57 H (3.93-5.22) M/uL Hgb 15.0 (12.0-16.0) g/dl Hct 45.9 H (34.1-44.9) % MCV 82.4 (80.0-100.0) fL MCH 26.9 (25.0-34.0) pg MCHC 32.7 (32.0-36.0) g/dL RDW Std Deviation 40.8 (36.4-46.3) fL RDW Coeff of Dez 13.8 (11.5-14.5) % Plt Count 215 (130-400) K/uL MPV 9.5 (9.4-12.3) fL Immature Gran % (Auto) 0.8 % Neut % (Auto) 87.4 % Lymph % (Auto) 5.1 % Gentry % (Auto) 6.6 % Eos % (Auto) 0.0 % Baso % (Auto) 0.1 % Neut # (Auto) 12.41 H (1.4-6.5) K/uL Lymph # (Auto) 0.72 L (1.2-3.4) K/uL Gentry # (Auto) 0.93 H (0.24-0.82) K/uL Eos # (Auto) 0.00 (0-0.50) K/uL Baso # (Auto) 0.02 (0-0.2) K/uL Immature Gran # (Auto) 0.11 H (0.00-0.02) K/uL Sodium 136 (136-145) mmol/L Potassium 5.1 (3.5-5.1) mmol/L Chloride 100 (98-107) mmol/L Carbon Dioxide 29 (21-32) mmol/L Anion Gap 7 (3-11) BUN 28 H (6-23) mg/dl Creatinine 0.95 (0.6-1.2) mg/dl Est Cr Clr Drug Dosing Not Reportable Est GFR ( Amer) 69.8 ml/min Est GFR (Non-Af Amer) 60.3 ml/min BUN/Creatinine Ratio 29.5 H (10-20) Glucose 132 H (70-99(Fasting)) mg/dl Calcium 9.4 (8.5-10.1) mg/dl Magnesium 2.1 (1.7-2.4) mg/dl Total Bilirubin 0.8 (0.2-1.0) mg/dl AST 12 L (13-39) U/L ALT 16 (7-52) U/L Alkaline Phosphatase 74 (34-104) U/L Troponin I High Sens (0-14) pg/ml Total Protein 6.6 (6.0-8.3) gm/dl Albumin 3.3 L (3.4-5.0) gm/dl Globulin 3.3 (2.5-4.0) gm/dl Albumin/Globulin Ratio 1.0 (0.9-2) SARS-CoV-2, RNA, NAAT (NEGATIVE) 08/22/21 08/22/21 Range/Units 11:21 13:36 WBC (4.8-10.8) K/ul RBC (3.93-5.22) M/uL Hgb (12.0-16.0) g/dl Hct (34.1-44.9) % MCV (80.0-100.0) fL MCH (25.0-34.0) pg MCHC (32.0-36.0) g/dL RDW Std Deviation (36.4-46.3) fL RDW Coeff of Dez (11.5-14.5) % Plt Count (130-400) K/uL MPV (9.4-12.3) fL Immature Gran % (Auto) % Neut % (Auto) % Lymph % (Auto) % Gentry % (Auto) % Eos % (Auto) % Baso % (Auto) % Neut # (Auto) (1.4-6.5) K/uL Lymph # (Auto) (1.2-3.4) K/uL Gentry # (Auto) (0.24-0.82) K/uL Eos # (Auto) (0-0.50) K/uL Baso # (Auto) (0-0.2) K/uL Immature Gran # (Auto) (0.00-0.02) K/uL Sodium (136-145) mmol/L Potassium (3.5-5.1) mmol/L Chloride (98-107) mmol/L Carbon Dioxide (21-32) mmol/L Anion Gap (3-11) BUN (6-23) mg/dl Creatinine (0.6-1.2) mg/dl Est Cr Clr Drug Dosing Est GFR ( Amer) ml/min Est GFR (Non-Af Amer) ml/min BUN/Creatinine Ratio (10-20) Glucose (70-99(Fasting)) mg/dl Calcium (8.5-10.1) mg/dl Magnesium (1.7-2.4) mg/dl Total Bilirubin (0.2-1.0) mg/dl AST (13-39) U/L ALT (7-52) U/L Alkaline Phosphatase (34-104) U/L Troponin I High Sens 20.4 H D (0-14) pg/ml Total Protein (6.0-8.3) gm/dl Albumin (3.4-5.0) gm/dl Globulin (2.5-4.0) gm/dl Albumin/Globulin Ratio (0.9-2) SARS-CoV-2, RNA, NAAT NEGATIVE (NEGATIVE) Imaging Data Radiologist's Impression: Chest X-Ray 08/22/21 11:55 SINGLE VIEW CHEST CLINICAL HISTORY: Generalized weakness. FINDINGS: An AP, portable, upright chest radiograph is compared to study dated 08/05/2021. The examination is degraded by portable technique and patient r otation. The cardiomediastinal silhouette is unremarkable. There is chronic elevation of the right hemidiaphragm with mild right basilar atelectasis. The lungs and pleural spaces are otherwise clear. No pneumothorax is seen. The skeletal structures are osteopenic. The bony thorax is grossly intact. IMPRESSION: No active disease in the chest. ACT 112: Negative or not required by law. Electronically signed by: Barrera Henderson M.D. 08/22/2021 1:[address] 08/22/21 11:55 CT head/brain wo con CLINICAL HISTORY: AMS/brain met eval for bleed Technique: Contiguous axial CT images of the head were acquired from the base of the skull to the vertex without intravenous contrast administration. Images were viewed in brain, subdural and bone windows. Automated dose lowering techniques and/or adjustment according to patient size were utilized for this exam. Comparison: Comparison is made to CT head for radiation therapy 08/06/2021 and MRI brain 08/05/2021 Findings: No evidence of intracranial hemorrhage. Partially visualized hypodensity in the right juan c measuring approximately 19 mm corresponds to previously noted right pontine metastasis. Imaged portions of the paranasal sinuses and mastoid air cells are clear. The orbits appear normal. There are no acute fractures of the calvaria or scalp swelling. Impression: No acute abnormality, in particular no evidence of intracranial hemorrhage. The right pontine lesion is better seen on MRI. ACT 112: Negative or not required by law. Electronically signed by: Dirk Hurtado M.D. 08/22/2021 12:43 PM ECG Data Attestation: I personally reviewed and interpreted this ECG as follows: Indication: + altered mental status Rate (beats per minute): 58 Rhythm: + sinus bradycardia ECG [place]: + Normal ECG Findings: + Peaked T waves; no PVCs Comparison ECG Date: from (August 12, 2021) Change: the following changes noted (T waves are more prominent today in lead V2.) MDM Narrative I did evaluate the patient as noted above. The patient is presenting with increasing confusion and weakness in the setting of renal cell carcinoma with mets to the brain. The patient has no specific complaints at this time but is not cooperative with her examination. IV access was established. I did discuss her care with Dr. Cohen who recommended giving her Decadron. She was given Decadron 4 mg IV here. She became increasingly anxious and was also given Ativan 0.[address] an order for continuous cardiac monitoring. The monitor showed normal sinus rhythm at a rate of 60 bpm. I did order and personally review the patient's 12-lead EKG as described above. She has some increased prominence of her T waves but no other findings. She has mild bradycardia. I did order and personally reviewed the images of the patient's chest x-ray as described above. There is no evidence of pneumonia. She is unable to give us a urine sample but her states that she had a ur inalysis yesterday. This showed 1+ bacteria but no other significant signs of infection. I did order and review the patient's blood work as noted in the electronic medical record. Her white count is elevated 14.1 but the patient is on Decadron chronically. She has had no fevers at home. Hemoglobin is 15. CMP is unremarkable other than a glucose of 132 and AST of 12. High-sensitivity troponin is slightly elevated at 20.4. COVID-19 testing is negative. I did order a CT of the brain. I did review the images myself as well as the radiology report as described above. There is no evidence of bleed or acute abnormality. I did discuss the test results with the patient's . She was given IV fluids here. He states that he cannot manage to take care of her at home. She will get out of bed by herself and she has not been eating or drinking. She will therefore be hospitalized for further care and evaluation. I did discuss the case with the hospitalist and onsite case manager. Impression & Plan Confusion, Brain metastasis, Generalized weakness, Elevated troponin I level Discharge Plan Visit Data Chief Complaint: Confusion Stated Complaint: CONFUSION, WEAKNESS ED Provider: Dano Massey Discharge Problem: Confusion, Brain metastasis, Generalized weakness, Elevated troponin I level Patient Disposition: Being Evaluated by Hospitalist Discharge Instructions Interventions: ED Discharge Assessment Last Done: 08/22/21 16:03
[2021-08-22 12:04] LABS: Basophils # (auto) 0.02 K/uL (0-0.2); Basophils % (auto) 0.1 %; Hematocrit (blood only) 45.9 % (34.1-44.9); Immature Granulocytes # (auto) 0.11 K/uL (0.00-0.02); Immature Granulocytes % (auto) 0.8 %; Lymphocytes # (auto) 0.72 K/uL (1.2-3.4); Lymphocytes % (auto) 5.1 %; Mean Corpuscular Hemoglobin 26.9 pg (25.0-34.0); Mean Corpuscular Hgb Conc 32.7 g/dL (32.0-36.0); Mean Corpuscular Volume 82.4 fL (80.0-100.0); Mean Platelet Volume 9.5 fL (9.4-12.3); Monocytes # (auto) 0.93 K/uL (0.24-0.82); Monocytes % (auto) 6.6 %; Neutrophils # (auto) 12.41 K/uL (1.4-6.5); Neutrophils % (auto) 87.4 %; Platelet Count 215 K/uL (130-400); RDW Coefficient of Variation 13.8 % (11.5-14.5); RDW Standard Deviation 40.8 fL (36.4-46.3); Red Blood Count 5.57 M/uL (3.93-5.22); White Blood Count 14.19 K/ul (4.8-10.8)
[2021-08-22] MEDS ORDERED: dexAMETHasone 4 MG TAB PO ONE (12:11)
[2021-08-22 12:20] LABS: Alanine Aminotransferase 16 U/L (7-52); Albumin Level 3.3 gm/dl (3.4-5.0); Alkaline Phosphatase 74 U/L (34-104); Anion Gap 7 (3-11); Aspartate Aminotransferase 12 U/L (13-39); BUN Creatinine Ratio 29.5 (10-20); Bilirubin,Total 0.8 mg/dl (0.2-1.0); Blood Urea Nitrogen 28 mg/dl (6-23); Calcium 9.4 mg/dl (8.5-10.1); Carbon Dioxide 29 mmol/L (21-32); Chloride 100 mmol/L (98-107); Est GFR (African American) 69.8 ml/min; Est GFR (Non-African American) 60.3 ml/min; Globulin 3.3 gm/dl (2.5-4.0); Glucose 132 mg/dl (70-99(Fasting)); Potassium 5.1 mmol/L (3.5-5.1); Sodium 136 mmol/L (136-145); Total Protein 6.6 gm/dl (6.0-8.3)
[2021-08-22] MEDS ORDERED: LORazepam 2 MG/1 ML VIAL IV STA (12:36)
[2021-08-22] MEDS ORDERED: DEXAMETHASONE SOD INJ 4 MG/ML VIAL IV STA (12:36)
--- NOTE | 2021-08-22 12:45 | CT Scan Report ---
CT head/brain wo con CLINICAL HISTORY: AMS/brain met eval for bleed Technique: Contiguous axial CT images of the head were acquired from the base of the skull to the thelma torie without intravenous contrast administration. Images were viewed in brain, subdural and bone windo ws. Automated dose lowering techniques and/or adjustment according to patient size were utilized for this exam. Comparison: Comparison is made to CT head for radiation therapy 08/06/2021 and MRI brain 08/05/2021 Findings: No evidence of intracranial hemorrhage. Partially visualized hypodensity in the right juan c measuring approximately 19 mm corresponds to previously noted right pontine metastasis. Imaged portions of the paranasal sinuses and mastoid air cells are clear. The orbits appear normal. There are no acute fra ctures of the calvaria or scalp swelling. Impression: No acute abnormality, in particular no evidence of intracranial hemorrhage. The right pontine lesion is better seen on MRI. ACT 112: Negative or not required by law. Electronically signed by: Dirk Hurtado M.D. 08/22/2021 12:43 PM
[2021-08-22] MEDS: SODIUM CHLORIDE 0.9% 500 ML IV SCH ×3 (12:50→23:20)
--- NOTE | 2021-08-22 13:03 | XRay Report ---
SINGLE VIEW CHEST CLINICAL HISTORY: Generalized weakness. FINDINGS: An AP, portable, upright chest radiograph is compared to study dated 08/05/2021. The examina tion is degraded by portable technique and patient rotation. The cardiomediastinal silhouette is unr emarkable. There is chronic elevation of the right hemidiaphragm with mild right basilar atelectasis. The lungs and pleural spaces are otherwise clear. No pneumothorax is seen. The skeletal structures a re osteopenic. The bony thorax is grossly intact. IMPRESSION: No active disease in the chest. ACT 112: Negative or not required by law. Electronically signed by: Barrera Henderson M.D. 08/22/2021 1:02 PM
--- NOTE | 2021-08-22 14:03 | History & Physical Report ---
Date of Service August 22, 2021 Assessment & Plan (1) Brain metastasis: Plan: Worsening weakness and decreased appetite in a 70 yo female with Renal cell carcnioma and mets to the brain.. Patient will be placed on her home medicine regimen. Radiation therapy will be consulted for final treatment course on Wednesday. (consult not placed yet) will consider consulting gastro for possible endoscopy if patient continues to have dysphagia. will resume steroids at 4x a day as it was cut down to 3x a day on 08/21. unsure if confusion and weakness is due to steroids, brain stem mets, anorexia, or her derlirium. No signs of infection will consult palliative care Update: Patient did not pass bedside swallow. Patient will not be able to take her medications orally (2) Diabetes: Plan: consult glycemic control (3) Hypertension: Plan: will resume home meds (4) Hypothyroidism: Plan: resume levothyroxine. (5) Renal cell cancer: Plan: Axitinib PO BID. Patient's brought this medication from home. However due to her inability to pass dysphagia screen, this medicine will be held. (6) Dementia: Plan: continue remeron, mirtazapine (7) Anorexia: Plan: secondary likely to problem 1. currently NPO. dvt: heparin FULL CODE History of Present Illness Chief Complaint: altered mental status Primary Care Provider: Vijay Diaz MD This is a pleasant 70-year-old female with history of brain metastasis to the juan c receiving radiation therapy, patient has renal cell carcinoma, patient also has dementia. Patient presents to the hospital with worsening weakness and confusion. It appears patient's oral intake has also been aproblem and this was discussed in her last hospital stay. Over the past few weeks, the patient has had a decrease in her appetite. Prior to this past week, her intake was close to 1000 calories a day as per her . But these past few days (about 6-7 days), her appetite has decreased significantly and is having less than 500 calories a day. States that she has been bedridden for the past 2 days. And she has been incontinent of urine and not being aware of when she needs to urinate. Her states that this is a change. reports that in the past patient has required esophageal dilatations over at [facility]. Her states that she has been complaining of food being stuck by the lower third of her sternum. However, he is not sure if this complaint is real, or if she is confused given that the complaint is intermittent. In regards to her diet, her reports that she likes potatoes and fruit. He reports that she is a full code. Allergies Allergy/AdvReac Type Severity Reaction Status Date / Time No Known Allergies Allergy Verified 08/22/21 15:08 Home Medications Medication Instructions Recorded Confirmed Type famotidine 10 mg tablet (Acid 10 mg PO BID 01/16/21 08/22/21 History Assistant Spa Manager (famotidine)) levothyroxine 25 mcg capsule 12.5 mcg PO Q OTHER DAY 01/16/21 08/22/21 History mirtazapine 15 mg tablet 15 mg PO HS 02/12/21 08/22/21 History simvastatin 20 mg tablet 20 mg PO HS 02/12/21 08/22/21 History phenazopyridine 200 mg tablet 200 mg PO Q8H PRN pain #10 tabs 07/14/21 08/22/21 Rx (Pyridium) tamsulosin 0.4 mg capsule 0.4 mg PO HS #30 caps 07/14/21 08/22/21 Rx lisinopril 20 mg tablet 20 mg PO QAM 07/30/21 08/22/21 History ondansetron 4 mg disintegrating 4 - 8 mg PO Q8H PRN nausea and 07/30/21 08/22/21 Rx tablet vomiting #14 tabs atenolol 50 mg tablet 50 mg PO BID 08/05/21 08/22/21 History donepezil 10 mg tablet 10 mg PO HS 08/05/21 08/22/21 History pantoprazole 40 mg tablet,delayed 40 mg PO BID 30 days #60 tabs 08/06/21 08/22/21 Rx release (Protonix) lorazepam 0.5 mg tablet 0.5 mg buccal .COMPLEX #3 tabs 08/07/21 08/22/21 Rx lorazepam 0.5 mg tablet 0.5 mg PO .COMPLEX PRN anxiety #4 08/18/21 08/22/21 Rx tabs diazepam 5 mg tablet (Valium) 5 mg PO .COMPLEX PRN anxiety #3 08/20/21 08/22/21 Rx tabs axitinib 5 mg tablet (Inlyta) 5 mg PO BID 08/22/21 08/22/21 History Past Med/Surg History Medical History Anxiety and depression Borderline type 2 diabetes mellitus DIET CONTROLLED Brain metastasis plan for whole brain radiation therapy Cardiac murmur Pt and report chronic, deny any h/o previous echo; no available records Dementia History of CVA (cerebrovascular accident) incidental finding remote per neuro per pt's -- event unk to pt - no deficits -SECOND NEURO SAID NO EVIDENCE OF STROKE- FOLLOWS / [facility]- LAST VISIT SPRING 2021 History of esophageal dilatation History of skin cancer removed HLD (hyperlipidemia) HTN (hypertension) controlled, stable per pt and Hypothyroidism Left hemiparesis Poor short term memory Renal cancer brain mets Scoliosis Surgical History History of cataract surgery R/L History of colonoscopy History of esophagogastroduodenoscopy (EGD) History of hysterectomy History of nephrectomy, right 02/17/21: Grade 2 view, MAC 3, ETT 7.0. History of tonsillectomy Hx of cholecystectomy 2020 S/P fine needle aspiration thyroid Family History Brother Hypertension Sister Cancer Breast Mother Cancer Breast Other No family history of adverse response to anesthesia Social History Smoking Status: Never smoker Second Hand Exposure: Yes; Do You Dip or Chew Tobacco: No; Tobacco Cessation Education Requested by Patient: No Hx Alcohol Use: No Hx Substance Use: No Preferred Language: Armenian Communication Ability: Impaired Evs Manager Required: No Beliefs That Will Affect Care: None marital status: Current Living Situation: Spouse current occupational status: retired Other Information That Helps Us Care for You: Yes Feels Safe at Home: Yes Assistive Devices: Walker Review of Systems Review of Systems: Unobtainable due to cognitive status Physical Exam Constitutional: WD/WN, vitals as above (APPEARS THIN.) Eyes: PERRL, conjunctivae normal, anicteric sclerae ENMT: external ear and nose normal, oropharynx normal Neck: trachea midline, no thyromegaly Respiratory: normal respiratory effort, lungs clear to auscultation Cardiovascular: bradycardic Gastrointestinal (Abdomen): normal bowel sounds, soft, nontender, no hepatosplenomegaly Musculoskeletal: able to move all 4 extremities, unable to assess strength. Neurologic: PERRL, EOMI, accommodation nl, no face palsy, no dysarthria Psychiatric: Orientation: + not alert and + not oriented x 3 Eye Contact: + poor eye contact Lymphatic: no cervical or axillary lymphadenopathy Results & Data Results & Data ([facility]) Vital Signs (Past 12 Hours) Vital Signs Temp Pulse Resp BP Pulse Ox O2 Del Method 08/22/21 13:00 56 L 14 120/73 95 08/22/21 12:00 58 L 14 97 08/22/21 12:00 127/79 08/22/21 12:15 97 Room Air 08/22/21 11:25 36.7 C 52 L 20 165/100 H 95 Room Air PG Care Time/CCT Total # of Minutes Spent Total Time Spent with Patient: Total time spent is greater than 50% in coordination of care (as documented) at patient's floor/unit and/or counseling patient: Coding Level of Care Code 61861 Initial Inpt Care Lvl 3 Diagnoses Brain metastasis C79.31 Diabetes E11.9 Hypertension I10 Hypothyroidism E03.9 Renal cell cancer C64.9 Dementia F03.90 Anorexia R63.0
[2021-08-22] MEDS ORDERED: diazePAM 5 MG TABLET PO PRN (14:05)
[2021-08-22] MEDS ORDERED: LORazepam 2 MG/1 ML VIAL ONE (16:52)
[2021-08-22] MEDS: LORazepam 0.5 MG in SYRINGE 0.25 ML IV PRN (16:55)
[2021-08-22 17:39] LABS: Appearance Urine Clear (Clear); Bilirubin Urine Negative (Negative); Blood Urine Negative (Negative); Color Urine Yellow; Glucose Urine UA Negative (Negative); Ketones Urine Trace (Negative); Leukocyte Esterase Urine Negative (Negative); Nitrite Urine Negative (Negative); Protein Urine Negative (Negative); Specific Gravity Urine 1.018 (1.000-1.030); Urobilinogen Urine Negative (Negative); pH Urine 5.5 (4.5-7.5)
[2021-08-22] MEDS ORDERED: dexAMETHasone 4 MG TAB PO SCH (18:00)
--- NOTE | 2021-08-22 18:10 | Electrocardiogram Report ---
Test Reason : Blood Pressure : / mmHG Vent. Rate : 058 BPM Atrial Rate : 058 BPM P-R Int : 160 ms QRS Dur : 080 ms QT Int : 440 ms P-R-T Axes : 071 021 089 degrees QTc Int : 431 ms Sinus bradycardia Otherwise normal ECG When compared with ECG of 12-AUG-2021 16:39, No significant change was found Confirmed by Clinton Austin ([id number]) on 08/22/2021 6:09:47 PM Referred By: REFERRED SELF Confirmed By:Jag Austin
[2021-08-22] MEDS: dexAMETHasone 4 MG in SYRINGE 0 ML IV SCH (19:51)
[2021-08-22] MEDS ORDERED: TAMSULOSIN HCL 0.4 MG CAP PO SCH (21:00)
[2021-08-22] MEDS ORDERED: DONEPEZIL HCL 10 MG TAB PO SCH (21:00)
[2021-08-22] MEDS: ATENOLOL 50 MG TABLET PO SCH (23:09)
[2021-08-22] MEDS: AXITINIB PO SCH (23:09)
[2021-08-22] MEDS: MIRTAZAPINE TAB 15 MG TAB PO SCH (23:10)
[2021-08-22] MEDS: SIMVASTATIN 20 MG TAB PO SCH (23:10)
[2021-08-22] MEDS: PANTOprazole 40 MG TAB PO SCH (23:10)
[2021-08-22] MEDS: FAMOTIDINE 10 MG TABLET PO SCH (23:10)
[2021-08-22] MEDS: SODIUM CHLORIDE 0.9% 1000ML 1,000 ML IV SCH (23:30)
[2021-08-23] MEDS: dexAMETHasone 4 MG in SYRINGE 0 ML IV SCH ×5 (00:26→23:26)
[2021-08-23] MEDS: LEVOTHYROXINE SODIUM 25 MCG TABLET PO SCH (06:36)
[2021-08-23] MEDS: AXITINIB PO SCH ×2 (06:36→17:36)
[2021-08-23] MEDS: SODIUM CHLORIDE 0.9% 1000ML 1,000 ML IV SCH (07:34)
[2021-08-23] MEDS ORDERED: hydrALAZINE HCL 20 MG/ML VIAL IV PRN (10:01)
[2021-08-23] MEDS: FAMOTIDINE 20 MG in SYRINGE 3 ML IV SCH ×2 (10:15→20:11)
[2021-08-23 10:25] LABS: Hematocrit (blood only) 39.8 % (34.1-44.9); Hemoglobin 13.3 g/dl (12.0-16.0); Mean Corpuscular Hemoglobin 27.7 pg (25.0-34.0); Mean Corpuscular Hgb Conc 33.4 g/dL (32.0-36.0); Mean Corpuscular Volume 82.7 fL (80.0-100.0); Mean Platelet Volume 8.9 fL (9.4-12.3); Platelet Count 162 K/uL (130-400); RDW Coefficient of Variation 13.5 % (11.5-14.5); RDW Standard Deviation 40.2 fL (36.4-46.3); Red Blood Count 4.81 M/uL (3.93-5.22); White Blood Count 11.97 K/ul (4.8-10.8)
[2021-08-23] MEDS: HEPARIN SOD 5,000 UNIT/0.5 ML VIAL SQ SCH ×2 (10:36→20:08)
[2021-08-23] MEDS ORDERED: PANTOprazole 40 MG in SYRINGE 0 ML IV SCH (11:00)
[2021-08-23 11:04] LABS: Basophils # (auto) 0.01 K/uL (0-0.2); Basophils % (auto) 0.1 %; Echinocytes 1+; Immature Granulocytes # (auto) 0.12 K/uL (0.00-0.02); Lymphocytes # (auto) 0.37 K/uL (1.2-3.4); Lymphocytes % (auto) 3.1 %; Monocytes # (auto) 0.35 K/uL (0.24-0.82); Monocytes % (auto) 2.9 %; Neutrophils # (auto) 11.12 K/uL (1.4-6.5); Neutrophils % (auto) 92.9 %
[2021-08-23 11:54] LABS: Alanine Aminotransferase 13 U/L (7-52); Albumin Level 2.7 gm/dl (3.4-5.0); Alkaline Phosphatase 62 U/L (34-104); Anion Gap 6 (3-11); Aspartate Aminotransferase 10 U/L (13-39); BUN Creatinine Ratio 30.6 (10-20); Bilirubin,Total 0.6 mg/dl (0.2-1.0); Blood Urea Nitrogen 19 mg/dl (6-23); Carbon Dioxide 24 mmol/L (21-32); Chloride 107 mmol/L (98-107); Est GFR (African American) 105.1 ml/min; Est GFR (Non-African American) 90.7 ml/min; Globulin 2.7 gm/dl (2.5-4.0); Glucose 105 mg/dl (70-99(Fasting)); Magnesium 1.8 mg/dl (1.7-2.4); Potassium 4.3 mmol/L (3.5-5.1); Sodium 137 mmol/L (136-145); Total Protein 5.4 gm/dl (6.0-8.3)
[2021-08-23] MEDS: AMPICILLIN 1,000 MG in SODIUM CHLOR 0.9% AD-VAN 50 ML IV SCH ×3 (12:23→23:25)
[2021-08-23] MEDS: LORazepam 0.5 MG in SYRINGE 0.25 ML IV PRN (12:23)
--- NOTE | 2021-08-23 14:09 | Hospitalist Progress Note ---
Date of Service August 23, 2021 Assessment & Plan (1) Acute encephalopathy: Plan: Patient presents with several days of worsening confusion, urinary incontinence, agitation and angry outbursts, poor appetite She has never been like this before and typically is very pleasant as per family and cooperative. This coincides with her being started on benzodiazepines for sedation for radiation treatments CT head here negative Urine culture from 08/21 is growing Enterococcus-we will treat for UTI in case contributing to encephalopathy With elevated WBC count likely due to dexamethasone, she is afebrile and no other signs of infection other than UTI. Procalcitonin negative, chest x-ray negative. She does have known brain mets which are being treated with radiation I do not see encephalopathy listed as a side effect of her chemotherapy drug (Inlyta) Blood sugars have been normal, LFTs normal, and TSH mildly low at 0.042 -Discontinue all benzodiazepines and added to allergy list as an adverse reaction to avoid these in the future -Hold Marinol for now although this is not likely to be contributing -Dexamethasone could also be contributing but she was on this for the last 10 days and seemed to have no problems thus far-continue dexamethasone -Not taking anything by mouth due to refusal at this time-feed as tolerated when desired -Keep hydrated with IV fluids and watch electrolytes-start D5 LR at 80 mL/h Hold home p.o. medications except keep her chemotherapy drug ordered in case she is willing to take it -Hopefully her mentation will improve as the benzodiazepines are metabolized -Recommend sedation with propofol for her radiation treatment on Wednesday rather than any benzodiazepines -Continue supportive care (2) UTI (urinary tract infection): Plan: Start ampicillin for Enterococcus UTI Convert to p.o. amoxicillin when she is willing to take p.o. (3) Anorexia: Plan: secondary to encephalopathy Awaiting encephalopathy to improve and hopefully this will improve If remains without nutrition for 2-3 more days, would consider starting course- tube feeds (4) Renal cell cancer: Plan: Axitinib PO BID. Patient's brought this medication from home. (5) Brain metastasis: Plan: Radiation therapy will be consulted for final treatment course on Wednesday. (consult not placed yet) will consider consulting gastro for possible endoscopy if patient continues to have dysphagia. Continue Decadron at 4x a day as it was cut down to 3x a day on 08/21. (6) Diabetes: Plan: Hemoglobin A1c 5.6% Blood sugar this morning 105 on venous draw We will hold off on any Accu-Cheks now as this may further agitate her and her sugars are normal If blood sugars become hyperglycemic on morning labs, will add supplemental insulin (7) Hypertension: Plan: Holding home atenolol and lisinopril due to refusal to take p.o. Add IV hydralazine as needed (8) Hypothyroidism: Plan: TSH mildly low at 0.04 on 08/19 Holding home levothyroxine and would consider lowering the dose when able to take p.o. (9) Dementia: Plan: Mild Holding home mirtazapine until willing to take p.o. Plan DVT prophylaxis-add SCDs, avoid subcu injections for now as this may further agitate her Disposition-continued stay on medical/surgical unit Admission and Anticipated Discharge Date Admission Date: August 22, 2021 Subjective Patient very agitated. Keeps her eyes throughout the whole time I am in the room with her and talking to her family. Whenever I ask her questions such as how you are doing. She angrily states "I am irritated with all of you!" And also states "no one will leave me alone! I just want to be left alone!" Her family is very concerned that she is not taking her chemotherapy pill as she is agitated. She only got this way in the last several days since she has been prescribed Valium and lorazepam for her radiation treatments. The reports that despite taking lorazepam, she got more agitated and then was given 10 mg of Valium as well as a total of 1 mg of lorazepam for her next radiation treatment and this still made her even more agitated. She also started on Marinol has not only took 2 doses of that. The is concerned that she has not eaten much in the last few days due to her worsening delirium. The last she ate was a boost for breakfast on the morning of 08/22. She also had been having some urinary incontinence and I informed them that she has evidence of UTI on urine culture from 08/21. The patient refuses to answer any of my other questions due to her agitated delirium. Review of Systems Review of Systems: Unobtainable due to cognitive status Physical Exam Constitutional: WD/WN, vitals as above Eyes: + anicteric sclerae Neck: trachea midline, no thyromegaly Respiratory: normal respiratory effort, lungs clear to auscultation Cardiovascular: RRR, no murmur, no edema Chest (Breasts): Chest: normal inspection of chest Gastrointestinal (Abdomen): normal bowel sounds, soft, nontender, no hepatosplenomegaly Musculoskeletal: Extremities: extremities normal to inspection; no cyanosis and no clubbing Skin: no rashes, warm and dry Neurologic: moves all extremities and awake; no focal motor deficits Psychiatric: Orientation: alert and oriented to person; + uncooperative Eye Contact: + poor eye contact Speech: + loud speech Affect: + angry affect and mood congruent with affect Lymphatic: no lymphedema Results & Data Results & Data ([facility]) Vital Signs (Past 12 Hours) Vital Signs Temp Pulse Resp BP Pulse Ox O2 Del Method 08/23/21 07:35 36.5 C 60 18 174/82 H 97 Room Air Laboratory Results 08/23/21 08/23/21 08/23/21 Range/Units 10:06 10:06 10:06 WBC (4.8-10.8) K/ul RBC (3.93-5.22) M/uL Hgb (12.0-16.0) g/dl Hct (34.1-44.9) % MCV (80.0-100.0) fL MCH (25.0-34.0) pg MCHC (32.0-36.0) g/dL RDW Std Deviation (36.4-46.3) fL RDW Coeff of Dez (11.5-14.5) % Plt Count (130-400) K/uL MPV (9.4-12.3) fL Immature Gran % (Auto) % Neut % (Auto) % Lymph % (Auto) % [place] % (Auto) % Eos % (Auto) % Baso % (Auto) % Neut # (Auto) (1.4-6.5) K/uL Lymph # (Auto) (1.2-3.4) K/uL [place] # (Auto) (0.24-0.82) K/uL Eos # (Auto) (0-0.50) K/uL Baso # (Auto) (0-0.2) K/uL Immature Gran # (Auto) (0.00-0.02) K/uL Echinocytes Sodium 137 (136-145) mmol/L Potassium 4.3 (3.5-5.1) mmol/L Chloride 107 (98-107) mmol/L Carbon Dioxide 24 (21-32) mmol/L Anion Gap 6 (3-11) BUN 19 (6-23) mg/dl Creatinine 0.62 D (0.6-1.2) mg/dl Est Cr Clr Drug Dosing Not Reportable Est GFR ( Amer) 105.1 ml/min Est GFR (Non-Af Amer) 90.7 ml/min BUN/Creatinine Ratio 30.6 H (10-20) Glucose 105 H (70-99(Fasting)) mg/dl Calcium 8.0 L (8.5-10.1) mg/dl Magnesium 1.8 (1.7-2.4) mg/dl Total Bilirubin 0.6 (0.2-1.0) mg/dl AST 10 L (13-39) U/L ALT 13 (7-52) U/L Alkaline Phosphatase 62 (34-104) U/L Troponin I High Sens 21.5 H (0-14) pg/ml Total Protein 5.4 L (6.0-8.3) gm/dl Albumin 2.7 L (3.4-5.0) gm/dl Globulin 2.7 (2.5-4.0) gm/dl Albumin/Globulin Ratio 1.0 (0.9-2) Procalcitonin < 0.05 (0-0.5) ng/ml 08/23/21 Range/Units 10:06 WBC 11.97 H (4.8-10.8) K/ul RBC 4.81 (3.93-5.22) M/uL Hgb 13.3 (12.0-16.0) g/dl Hct 39.8 (34.1-44.9) % MCV 82.7 (80.0-100.0) fL MCH 27.7 (25.0-34.0) pg MCHC 33.4 (32.0-36.0) g/dL RDW Std Deviation 40.2 (36.4-46.3) fL RDW Coeff of Dez 13.5 (11.5-14.5) % Plt Count 162 (130-400) K/uL MPV 8.9 L (9.4-12.3) fL Immature Gran % (Auto) 1.0 % Neut % (Auto) 92.9 % Lymph % (Auto) 3.1 % [place] % (Auto) 2.9 % Eos % (Auto) 0.0 % Baso % (Auto) 0.1 % Neut # (Auto) 11.12 H (1.4-6.5) K/uL Lymph # (Auto) 0.37 L (1.2-3.4) K/uL [place] # (Auto) 0.35 (0.24-0.82) K/uL Eos # (Auto) 0.00 (0-0.50) K/uL Baso # (Auto) 0.01 (0-0.2) K/uL Immature Gran # (Auto) 0.12 H (0.00-0.02) K/uL Echinocytes 1+ Sodium (136-145) mmol/L Potassium (3.5-5.1) mmol/L Chloride (98-107) mmol/L Carbon Dioxide (21-32) mmol/L Anion Gap (3-11) BUN (6-23) mg/dl Creatinine (0.6-1.2) mg/dl Est Cr Clr Drug Dosing Est GFR ( Amer) ml/min Est GFR (Non-Af Amer) ml/min BUN/Creatinine Ratio (10-20) Glucose (70-99(Fasting)) mg/dl Calcium (8.5-10.1) mg/dl Magnesium (1.7-2.4) mg/dl Total Bilirubin (0.2-1.0) mg/dl AST (13-39) U/L ALT (7-52) U/L Alkaline Phosphatase (34-104) U/L Troponin I High Sens (0-14) pg/ml Total Protein (6.0-8.3) gm/dl Albumin (3.4-5.0) gm/dl Globulin (2.5-4.0) gm/dl Albumin/Globulin Ratio (0.9-2) Procalcitonin (0-0.5) ng/ml PG Care Time/CCT Total # of Minutes Spent Total Time Spent with Patient: Total time spent is greater than 50% in coordination of care (as documented) at patient's floor/unit and/or counseling patient: Coding Level of Care Code 77936 Subseq Hosp Care Lvl 3 Diagnoses Acute encephalopathy G93.40 UTI (urinary tract infection) N39.0 Anorexia R63.0 Renal cell cancer C64.9 Brain metastasis C79.31 Diabetes E11.9 Hypertension I10 Hypothyroidism E03.9 Dementia F03.90
[2021-08-23] MEDS: D5W AND LACTATED RINGERS 1,000 ML IV SCH (14:59)
[2021-08-23] MEDS: ATENOLOL 50 MG TABLET PO SCH (17:12)
[2021-08-23] MEDS: PANTOprazole 40 MG TAB PO SCH (17:12)
[2021-08-23] MEDS: FAMOTIDINE 10 MG TABLET PO SCH (17:12)
[2021-08-24] MEDS ORDERED: HALOPERIDOL LACTATE 5 MG/ML 1 ML VIAL IM STA ×2 (02:32→03:48)
[2021-08-24] MEDS ORDERED: MoRPHine SULFATE 10 MG/0.5 ML UDP PO STA (04:46)
[2021-08-24] MEDS ORDERED: MoRPHine SULFATE 5 MG/0.25 ML UDP PO STA (04:54)
[2021-08-24] MEDS: AXITINIB PO SCH ×3 (05:07→17:10)
[2021-08-24] MEDS: AMPICILLIN 1,000 MG in SODIUM CHLOR 0.9% AD-VAN 50 ML IV SCH (05:50)
[2021-08-24] MEDS: dexAMETHasone 4 MG in SYRINGE 0 ML IV SCH (05:51)
[2021-08-24 07:57] LABS: Basophils # (auto) 0.02 K/uL (0-0.2); Basophils % (auto) 0.1 %; Immature Granulocytes # (auto) 0.16 K/uL (0.00-0.02); Lymphocytes # (auto) 0.39 K/uL (1.2-3.4); Lymphocytes % (auto) 2.5 %; Mean Corpuscular Hemoglobin 27.2 pg (25.0-34.0); Mean Corpuscular Hgb Conc 34.1 g/dL (32.0-36.0); Mean Corpuscular Volume 79.7 fL (80.0-100.0); Mean Platelet Volume 9.1 fL (9.4-12.3); Monocytes # (auto) 1.06 K/uL (0.24-0.82); Monocytes % (auto) 6.8 %; Neutrophils # (auto) 14.06 K/uL (1.4-6.5); Neutrophils % (auto) 89.6 %; Platelet Count 216 K/uL (130-400); RDW Coefficient of Variation 13.4 % (11.5-14.5); RDW Standard Deviation 38.2 fL (36.4-46.3); Red Blood Count 5.52 M/uL (3.93-5.22); White Blood Count 15.69 K/ul (4.8-10.8)
[2021-08-24 08:22] LABS: Alanine Aminotransferase 15 U/L (7-52); Albumin Level 3.2 gm/dl (3.4-5.0); Alkaline Phosphatase 80 U/L (34-104); Anion Gap 12 (3-11); Aspartate Aminotransferase 13 U/L (13-39); BUN Creatinine Ratio 24.6 (10-20); Bilirubin,Total 0.8 mg/dl (0.2-1.0); Blood Urea Nitrogen 17 mg/dl (6-23); Calcium 9.2 mg/dl (8.5-10.1); Carbon Dioxide 22 mmol/L (21-32); Chloride 105 mmol/L (98-107); Est GFR (African American) 101.5 ml/min; Est GFR (Non-African American) 87.6 ml/min; Globulin 3.1 gm/dl (2.5-4.0); Glucose 155 mg/dl (70-99(Fasting)); Magnesium 1.7 mg/dl (1.7-2.4); Phosphorus 1.8 mg/dl (2.5-4.9); Potassium 3.6 mmol/L (3.5-5.1); Sodium 139 mmol/L (136-145); Total Protein 6.3 gm/dl (6.0-8.3)
[2021-08-24] MEDS ORDERED: POTASSIUM PHOS 3 MMOL/1 ML INFUSION IV STA (08:49)
[2021-08-24] MEDS ORDERED: MAGNESIUM SULFATE / D5W 1 GM/100 ML BAG IV ONE (09:00)
[2021-08-24] MEDS ORDERED: POTASSIUM PHOSPHATE 15 MMOL in SODIUM CHLORIDE 0.9% 250 ML IV ONE (09:00)
[2021-08-24] MEDS ORDERED: MAGNESIUM OXIDE 400 MG TAB PO ONE (09:50)
[2021-08-24] MEDS ORDERED: bisacodyL 10 MG SUPP PR PRN (09:50)
--- NOTE | 2021-08-24 09:58 | Hospitalist Progress Note ---
Date of Service August 24, 2021 Assessment & Plan (1) Acute encephalopathy: Plan: Patient presents with several days of worsening confusion, urinary incontinence, agitation and angry outbursts, poor appetite, constipation She has never been like this before and typically is very pleasant as per family and cooperative. This coincides with her being started on benzodiazepines for sedation for radiation treatments CT head here negative Urine culture from 08/21 is growing Enterococcus-we will treat for UTI in case contributing to encephalopathy With elevated WBC count likely due to dexamethasone, she is afebrile and no other signs of infection other than UTI. Procalcitonin negative, chest x-ray negative. She does have known brain mets which are being treated with radiation I do not see encephalopathy listed as a side effect of her chemotherapy drug (Inlyta) Blood sugars have been normal, LFTs normal, and TSH mildly low at 0.042 Discontinued all benzodiazepines and added to allergy list as an adverse reaction to avoid these in the future Received IM Haldol overnight 08/23 for agitaiton and ripping IV out, also had Chavez placed for significant urinary retention, and had 2 doses of po Roxanol--> AM of 08/24 is significantly improved with mentation. Still slightly confused but no longer agitated and is taking pills. -Hold Marinol for now although this is not likely to be contributing -Dexamethasone could also be contributing but she was on this for the last 10 days and seemed to have no problems thus far-continue dexamethasone -switch meds from IV back to po. Continue to hold non-crucial meds such as statin,donepezil, tamsulosin -dc IVFs as no longer has IV and taking po now -advance diet to regular/easy to chew -Recommend sedation with propofol for her radiation treatment on Wednesday rather than any benzodiazepines-discussed with Dr. Jenaro Cohen of Rad Onc -Continue supportive care -maintain Chavez for now as this may have been contributing to agitation also -work on bowel regimen for severe constipation (2) UTI (urinary tract infection): Plan: Started ampicillin for Enterococcus UTI Convert to p.o. amoxicillin 500mg po bid now that she is willing to take p.o.- last day of tx will be 08/29/21 (3) Anorexia: Plan: secondary to encephalopathy which is now improving restart mirtazapine encourage po intake by family members (4) Constipation: Plan: no BM in 10 days, poor po intake start senna/docusate, Bisacodyl ND prn (5) Renal cell cancer: Plan: RCC with mets to brain and extensive LN mets Continue Axitinib PO BID- brought this medication from home. continue XRT with Rad/Onc f/u with Dr. Violetta García/Onc after discharge (6) Brain metastasis: Plan: Radiation therapy will be consulted for final treatment course on Wednesday. Dr. Cohen aware Continue Decadron and convert back to po dosing at the 4mg po tid dosing she was recently tapered down to on 08/21 (7) Diabetes: Plan: Hemoglobin A1c 5.6% Blood sugar this morning 155 on venous draw We will hold off on any Accu-Cheks now as this may further agitate her and her sugars are normal If blood sugars become hyperglycemic on morning labs, will add supplemental insulin (8) Hypertension: Plan: Holding home atenolol and lisinopril due to refusal to take p.o. but will restart now as she is improved with mental status - IV hydralazine as needed (9) Hypothyroidism: Plan: TSH mildly low at 0.04 on 08/19 restart home levothyroxine 12.5mcg every other day and would consider lowering the dose further-follow as outpt (10) Dementia: Plan: Mild supportive care Plan DVT prophylaxis-SCDs, heparin SQ Disposition-continued stay on medical/surgical unit, improving, hopeful for continued improvement, Radiation tx on Wednesday, dc to home possibly 1-2 days Discussed all care extensively with daughter and at bedside Admission and Anticipated Discharge Date Admission Date: August 22, 2021 Subjective Pt was very agitated overnight, pulled out IVs, trying to get out of bed. Also had urinary retention and had Chavez placed for 800mL urine. She received 2 doses of IM Haldol 2.5mg and remained agitated, so because she was seeming to be in pain, she was given 2 doses of po Roxanol. Today, she is like a new woman and and daughter at bedside feel re lieved. She is happy, interactive. Still a bit disoriented with name of hospital and year/month/date. Doesn't know the town but knows in [place]. She does say a few times "Just keep me awake, I don't want to sleep today." She says she is not feeling hungry but family plans on trying to get her to eat today.Family able to get her to take her chemo pill this AM. She denies headache, no CP, SOB, no nausea or abd pain. Has not had a BM in 10 days as per . Review of Systems Review of Systems: All systems reviewed & are unremarkable except as noted in HPI & below Physical Exam Constitutional: WD/WN, vitals as above Eyes: PERRL, conjunctivae normal, anicteric sclerae (pupils small but reactive,2/2 morphine) ENMT: external ear and nose normal, oropharynx normal Neck: trachea midline, no thyromegaly Respiratory: normal respiratory effort, lungs clear to auscultation Cardiovascular: RRR, no murmur, no edema Chest (Breasts): Chest: normal inspection of chest Gastrointestinal (Abdomen): normal bowel sounds, soft, nontender, no hepatosplenomegaly Musculoskeletal: Extremities: extremities normal to inspection; no cyanosis and no clubbing Skin: no rashes, warm and dry + wound (small scrape left forearm) Neurologic: + focal motor deficit (LUE and LLE 4/5 strength throughout) and awake Psychiatric: Orientation: alert, oriented to person, oriented to place ("hospital" but not name of hospital,or town, knows it's "[place]") and cooperative; + not oriented to time (thinks year is 1968, month "May or June") Apperance: appropriately dressed Eye Contact: good eye contact Motor Behavior: no psychomotor agitation Speech: normal rate/rhythm/volume of speech Affect: euthymic affect Genitourinary: Chavez in place draining clear yellow urine Lymphatic: no lymphedema Results & Data Results & Data ([facility]) Vital Signs (Past 12 Hours) Vital Signs Temp Pulse Resp BP Pulse Ox O2 Del Method 08/24/21 06:52 36.9 C 96 H 18 143/86 H 96 Room Air 08/23/21 23:25 36.4 C L 48 L 16 161/83 H 96 Laboratory Results 08/24/21 08/24/21 08/23/21 Range/Units 07:23 07:23 10:06 WBC 15.69 H (4.8-10.8) K/ul RBC 5.52 H (3.93-5.22) M/uL Hgb 15.0 (12.0-16.0) g/dl Hct 44.0 (34.1-44.9) % MCV 79.7 L (80.0-100.0) fL MCH 27.2 (25.0-34.0) pg MCHC 34.1 (32.0-36.0) g/dL RDW Std Deviation 38.2 (36.4-46.3) fL RDW Coeff of Dez 13.4 (11.5-14.5) % Plt Count 216 (130-400) K/uL MPV 9.1 L (9.4-12.3) fL Immature Gran % (Auto) 1.0 % Neut % (Auto) 89.6 % Lymph % (Auto) 2.5 % Carson % (Auto) 6.8 % Eos % (Auto) 0.0 % Baso % (Auto) 0.1 % Neut # (Auto) 14.06 H (1.4-6.5) K/uL Lymph # (Auto) 0.39 L (1.2-3.4) K/uL Carson # (Auto) 1.06 H (0.24-0.82) K/uL Eos # (Auto) 0.00 (0-0.50) K/uL Baso # (Auto) 0.02 (0-0.2) K/uL Immature Gran # (Auto) 0.16 H (0.00-0.02) K/uL Echinocytes Sodium 139 (136-145) mmol/L Potassium 3.6 (3.5-5.1) mmol/L Chloride 105 (98-107) mmol/L Carbon Dioxide 22 (21-32) mmol/L Anion Gap 12 H (3-11) BUN 17 (6-23) mg/dl Creatinine 0.69 (0.6-1.2) mg/dl Est Cr Clr Drug Dosing Not Reportable Est GFR ( Amer) 101.5 ml/min Est GFR (Non-Af Amer) 87.6 ml/min BUN/Creatinine Ratio 24.6 H (10-20) Glucose 155 H (70-99(Fasting)) mg/dl Calcium 9.2 (8.5-10.1) mg/dl Phosphorus 1.8 L (2.5-4.9) mg/dl Magnesium 1.7 (1.7-2.4) mg/dl Total Bilirubin 0.8 (0.2-1.0) mg/dl AST 13 (13-39) U/L ALT 15 (7-52) U/L Alkaline Phosphatase 80 (34-104) U/L Troponin I High Sens (0-14) pg/ml Total Protein 6.3 (6.0-8.3) gm/dl Albumin 3.2 L (3.4-5.0) gm/dl Globulin 3.1 (2.5-4.0) gm/dl Albumin/Globulin Ratio 1.0 (0.9-2) Procalcitonin < 0.05 (0-0.5) ng/ml 08/23/21 08/23/21 08/23/21 Range/Units 10:06 10:06 10:06 WBC 11.97 H (4.8-10.8) K/ul RBC 4.81 (3.93-5.22) M/uL Hgb 13.3 (12.0-16.0) g/dl Hct 39.8 (34.1-44.9) % MCV 82.7 (80.0-100.0) fL MCH 27.7 (25.0-34.0) pg MCHC 33.4 (32.0-36.0) g/dL RDW Std Deviation 40.2 (36.4-46.3) fL RDW Coeff of Dez 13.5 (11.5-14.5) % Plt Count 162 (130-400) K/uL MPV 8.9 L (9.4-12.3) fL Immature Gran % (Auto) 1.0 % Neut % (Auto) 92.9 % Lymph % (Auto) 3.1 % Carson % (Auto) 2.9 % Eos % (Auto) 0.0 % Baso % (Auto) 0.1 % Neut # (Auto) 11.12 H (1.4-6.5) K/uL Lymph # (Auto) 0.37 L (1.2-3.4) K/uL Carson # (Auto) 0.35 (0.24-0.82) K/uL Eos # (Auto) 0.00 (0-0.50) K/uL Baso # (Auto) 0.01 (0-0.2) K/uL Immature Gran # (Auto) 0.12 H (0.00-0.02) K/uL Echinocytes 1+ Sodium 137 (136-145) mmol/L Potassium 4.3 (3.5-5.1) mmol/L Chloride 107 (98-107) mmol/L Carbon Dioxide 24 (21-32) mmol/L Anion Gap 6 (3-11) BUN 19 (6-23) mg/dl Creatinine 0.62 D (0.6-1.2) mg/dl Est Cr Clr Drug Dosing Not Reportable Est GFR ( Amer) 105.1 ml/min Est GFR (Non-Af Amer) 90.7 ml/min BUN/Creatinine Ratio 30.6 H (10-20) Glucose 105 H (70-99(Fasting)) mg/dl Calcium 8.0 L (8.5-10.1) mg/dl Phosphorus (2.5-4.9) mg/dl Magnesium 1.8 (1.7-2.4) mg/dl Total Bilirubin 0.6 (0.2-1.0) mg/dl AST 10 L (13-39) U/L ALT 13 (7-52) U/L Alkaline Phosphatase 62 (34-104) U/L Troponin I High Sens 21.5 H (0-14) pg/ml Total Protein 5.4 L (6.0-8.3) gm/dl Albumin 2.7 L (3.4-5.0) gm/dl Globulin 2.7 (2.5-4.0) gm/dl Albumin/Globulin Ratio 1.0 (0.9-2) Procalcitonin (0-0.5) ng/ml PG Care Time/CCT Total # of Minutes Spent Total Time Spent with Patient: Total time spent is greater than 50% in coordination of care (as documented) at patient's floor/unit and/or counseling patient: Coding Level of Care Code 18471 Subseq Hosp Care Lvl 3 Diagnoses Acute encephalopathy G93.40 UTI (urinary tract infection) N39.0 Anorexia R63.0 Constipation K59.00 Renal cell cancer C64.9 Brain metastasis C79.31 Diabetes E11.9 Hypertension I10 Hypothyroidism E03.9 Dementia F03.90
[2021-08-24] MEDS: AMOXICILLIN SUSP 400 MG/5 ML PO SCH ×2 (10:30→20:22)
[2021-08-24] MEDS: dexAMETHasone 4 MG TAB PO SCH ×3 (10:32→20:02)
[2021-08-24] MEDS: DOCUSATE SODIUM/SENNA 50/8.6MG TAB PO SCH (10:32)
[2021-08-24] MEDS: lisinopril 20 MG TAB PO SCH (12:41)
[2021-08-24] MEDS: POT PHOSPHATE MONOBASIC W/ SOD TAB PO SCH ×3 (12:42→20:02)
[2021-08-24] MEDS: HEPARIN SOD 5,000 UNIT/0.5 ML VIAL SQ SCH ×2 (12:48→20:02)
[2021-08-24] MEDS ORDERED: HALOPERIDOL LACTATE 5 MG/ML 1 ML VIAL IM PRN (13:49)
[2021-08-24] MEDS: FAMOTIDINE 20 MG in SYRINGE 3 ML IV SCH (16:39)
[2021-08-24] MEDS: D5W AND LACTATED RINGERS 1,000 ML IV SCH (16:39)
[2021-08-24] MEDS: ATENOLOL 50 MG TABLET PO SCH (20:01)
[2021-08-24] MEDS: PANTOprazole 40 MG TAB PO SCH (20:01)
[2021-08-24] MEDS: FAMOTIDINE 10 MG TABLET PO SCH (20:02)
[2021-08-24] MEDS: MIRTAZAPINE TAB 15 MG TAB PO SCH (20:03)
[2021-08-25] MEDS: LEVOTHYROXINE SODIUM 25 MCG TABLET PO SCH (06:13)
[2021-08-25] MEDS: AXITINIB PO SCH ×2 (06:16→17:18)
--- NOTE | 2021-08-25 08:33 | Anesthesiology Consultation ---
Date of Service August 25, 2021 Assessment & Plan Chart Review Chart Review: Acceptable Risk for Surgery Consults Requested none ASA ASA3 Proposed Anesthesia Anesthesia Type: MAC Risk / Benefits Reviewed With: PT / POA / Parent / Guardian, Accepts Plan and Informed Consent Obtained History Surgery XRT Height/Weight Weight: 88.9 kg Allergies Allergy/AdvReac Type Severity Reaction Status Date / Time diazepam [From Valium] AdvReac Intermediate Agitated Verified 08/23/21 14:07 lorazepam AdvReac Intermediate Agitated Verified 08/23/21 14:07 Medications Home Medications Medication Instructions Recorded Confirmed Last Taken famotidine 10 mg tablet (Acid 10 mg PO BID 01/16/21 08/22/21 08/21/21 [employer] (famotidine)) levothyroxine 25 mcg capsule 12.5 mcg PO Q OTHER DAY 01/16/21 08/22/21 08/21/21 mirtazapine 15 mg tablet 15 mg PO HS 02/12/21 08/22/21 08/21/21 simvastatin 20 mg tablet 20 mg PO HS 02/12/21 08/22/21 08/21/21 phenazopyridine 200 mg tablet 200 mg PO Q8H PRN pain #10 tabs 07/14/21 08/22/21 Unknown (Pyridium) tamsulosin 0.4 mg capsule 0.4 mg PO HS #30 caps 07/14/21 08/22/21 08/21/21 lisinopril 20 mg tablet 20 mg PO QAM 07/30/21 08/22/21 08/21/21 ondansetron 4 mg disintegrating 4 - 8 mg PO Q8H PRN nausea and 07/30/21 08/22/21 Unknown tablet vomiting #14 tabs atenolol 50 mg tablet 50 mg PO BID 08/05/21 08/22/21 08/21/21 donepezil 10 mg tablet 10 mg PO HS 08/05/21 08/22/21 08/21/21 pantoprazole 40 mg tablet,delayed 40 mg PO BID 30 days #60 tabs 08/06/21 08/22/21 08/21/21 release (Protonix) lorazepam 0.5 mg tablet 0.5 mg buccal .COMPLEX #3 tabs 08/07/21 08/22/21 Unknown lorazepam 0.5 mg tablet 0.5 mg PO .COMPLEX PRN anxiety #4 08/18/21 08/22/21 Unknown tabs diazepam 5 mg tablet (Valium) 5 mg PO .COMPLEX PRN anxiety #3 08/20/21 08/22/21 Unknown tabs axitinib 5 mg tablet (Inlyta) 5 mg PO BID 08/22/21 08/22/21 08/22/21 06:00 dexamethasone 4 mg tablet 4 mg PO TID 08/24/21 08/24/21 Unknown Active Medications Generic Name Dose Route Start Last Admin Trade Name Wilfredo PRN Reason Stop Dose Admin Amoxicillin 500 mg 08/24/21 09:30 08/24/21 20:22 Amoxicillin Susp 400 Mg/5 Ml PO 08/29/21 09:29 500 mg BID DARIA Administration Atenolol 50 mg 08/22/21 21:00 08/24/21 20:01 Atenolol 50 Mg Tablet PO 09/21/21 20:59 50 mg BID DARIA Administration Axitinib 1 each 08/23/21 17:15 08/25/21 06:16 Axitinib PO 09/22/21 17:14 1 each BID@0500,1700 DARIA Administration Dexamethasone 4 mg 08/24/21 09:25 08/24/21 20:02 Dexamethasone 4 Mg Tab PO 09/23/21 09:24 4 mg TID DARIA Administration Donepezil HCl 10 mg 08/22/21 21:00 08/22/21 23:09 Donepezil Hcl 10 Mg Tab PO 09/21/21 20:59 Not Given HS DARIA Famotidine 10 mg 08/22/21 21:00 08/24/21 20:02 Famotidine 10 Mg Tablet PO 09/21/21 20:59 10 mg BID DARIA Administration Heparin Sodium (Porcine) 5,000 units 08/23/21 09:00 08/24/21 20:02 Heparin Sod 5,000 Unit/0.5 Ml Vial SQ 09/22/21 08:59 5,000 units Q12 DARIA Administration Levothyroxine Sodium 12.5 mcg 08/23/21 06:30 08/25/21 06:13 Levothyroxine Sodium 25 Mcg Tablet PO 09/22/21 06:29 12.5 mcg Q2D@0630 DARIA Administration Lisinopril 20 mg 08/24/21 10:30 08/24/21 12:41 Lisinopril 20 Mg Tab PO 09/23/21 10:29 20 mg QAM DARIA Administration Mirtazapine 15 mg 08/22/21 21:00 08/24/21 20:03 Mirtazapine Tab 15 Mg Tab PO 09/21/21 20:59 15 mg HS DARIA Administration Pantoprazole Sodium 40 mg 08/22/21 21:00 08/24/21 20:01 Pantoprazole 40 Mg Tab PO 09/21/21 20:59 40 mg BID DARIA Administration Senna/Docusate Sodium 1 tab 08/24/21 10:00 08/24/21 10:32 Docusate Sodium/Senna 50/8.6mg Tab PO 09/23/21 09:59 1 tab QAM DARIA Administration Simvastatin 20 mg 08/22/21 21:00 08/22/21 23:10 Simvastatin 20 Mg Tab PO 09/21/21 20:59 Not Given HS DARIA NPO Date Last Intake of Fluids: 08/25/21 Time Last Intake of Fluids: 00:00 Date Last Intake of Solids: 08/25/21 Time Last Intake of Solids: 00:00 Past Medical History Medical History Anxiety and depression Borderline type 2 diabetes mellitus DIET CONTROLLED Brain metastasis plan for whole brain radiation therapy Cardiac murmur Pt and report chronic, deny any h/o previous echo; no available records Dementia History of CVA (cerebrovascular accident) incidental finding remote per neuro per pt's -- event unk to pt - no deficits -SECOND NEURO SAID NO EVIDENCE OF STROKE- FOLLOWS / [facility]- LAST VISIT SPRING 2021 History of esophageal dilatation History of skin cancer removed HLD (hyperlipidemia) HTN (hypertension) controlled, stable per pt and Hypothyroidism Left hemiparesis Poor short term memory Renal cancer brain mets Scoliosis Exercise / Class Metabolic Activity IV < 2 Limit ADL/Bedbound Past Family History Family History Brother Hypertension Sister Cancer Breast Mother Cancer Breast Other No family history of adverse response to anesthesia Past Surgical History Surgical History History of cataract surgery R/L History of colonoscopy History of esophagogastroduodenoscopy (EGD) History of hysterectomy History of nephrectomy, right 02/17/21: Grade 2 view, MAC 3, ETT 7.0. History of tonsillectomy Hx of cholecystectomy 2020 S/P fine needle aspiration thyroid Past Anesthesia History No Hx of Anesthesia Complications and No Family Hx of Anesthesia Complications History of PONV No Hx of PONV and No Hx of Motion Sickness Social History Smoking Status: Never smoker Do You Dip or Chew Tobacco: No Hx Alcohol Use: No Hx Substance Use: No substance use type: does not use Physical Exam Vital Signs Last Vital Signs Temp 36.6 C 08/25/21 08:08 Pulse 58 L 08/25/21 08:08 Resp 16 08/25/21 08:08 BP 151/91 H 08/25/21 08:08 Pulse Ox 95 08/25/21 08:08 O2 Del Method 08/25/21 05:42 Constitutional WD/WN, vitals as above cooperative ENMT Mouth: + small oral opening Thyromental Distance: < 3.5 Finger Breadths Mallampati Class: II Neck trachea midline, no thyromegaly Respiratory normal respiratory effort, lungs clear to auscultation Cardiovascular RRR, no murmur, no edema Heart Sounds: normal S1 and normal S2 Musculoskeletal Head/Neck/Chest: normocephalic and head atraumatic Spine: normal cervical ROM Neurologic normal touch/pain/proprioception, CN's II-XI intact bilaterally (Grossly intact) and moves all extremities Psychiatric A+Ox3, euthymic affect Testing Laboratory Results 08/25/21 08:27 Urine Color Yellow 08/22/21 17:00 Urine Appearance Clear (Clear) 08/22/21 17:00 Urine pH 5.5 (4.5-7.5) 08/22/21 17:00 Ur Specific [place] 1.018 (1.000-1.030) 08/22/21 17:00 Urine Protein Negative (Negative) 08/22/21 17:00 Urine Glucose (UA) Negative (Negative) 08/22/21 17:00 Urine Ketones Trace (Negative) H 08/22/21 17:00 Urine Nitrite Negative (Negative) 08/22/21 17:00 Ur Leukocyte Esterase Negative (Negative) 08/22/21 17:00 Electrocardiogram Date: 08/22/21 Findings: + SB @ (58) Chest X-Ray Date: 08/22/21 Findings: + NAD Echocardiogram Date: 02/14/21 EF: 55-60 LV Function: normal RWMA: + none Valvular Disease: + MS (mild) and + MR (mild) Other Testing 08/22/21 CT head/brain wo con CLINICAL HISTORY: AMS/brain met eval for bleed Technique: Contiguous axial CT images of the head were acquired from the base of the skull to the vertex without intravenous contrast administration. Images were viewed in brain, subdural and bone windows. Automated dose lowering techniques and/or adjustment according to patient size were utilized for this exam. Comparison: Comparison is made to CT head for radiation therapy 08/06/2021 and MRI brain 08/05/2021 Findings: No evidence of intracranial hemorrhage. Partially visualized hypodensity in the right juan c measuring approximately 19 mm corresponds to previously noted right pontine metastasis. Imaged portions of the paranasal sinuses and mastoid air cells are clear. The orbits appear normal. There are no acute fractures of the calvaria or scalp swelling. Impression: No acute abnormality, in particular no evidence of intracranial hemorrhage. The right pontine lesion is better seen on MRI. 08/05/21 MRI OF THE BRAIN COMBO CLINICAL HISTORY: Intracranial mass. COMPARISON STUDY: CT of the brain dated 08/05/2021. TECHNIQUE: MRI of the brain was performed utilizing various T1 and T2-weighted sequences in the axial, sagittal, and coronal planes. Contrast-enhanced sequences were acquired following the administration of 5.5 cc of Gadavist. FINDINGS: Brain parenchyma: There is age-related involutional change noting mild subcorti ivan and periventricular microangiopathic disease. There is a 1.6 x 1.5 x 2.0 cm heterogeneously enhancing mass lesion centered in the right aspect of the juan c. This is best seen on axial postcontrast image #43 of 132. There is surrounding edema, with mild effacement of the fourth ventricle. An additional punctate enhancing lesion is seen in the left occipital lobe on image #62, and a punctate enhancing lesion in the right frontal lobe is seen on image #105. There is no hemorrhage or mass effect. There is no restricted diffusion typical for acute ischemia. No extra-axial fluid collection is seen. The cerebellar tonsils are normal in configuration. Ventricles, sulci, and cisterns: Prominent secondary to involutional change. Pituitary and sella: Unremarkable. Intracranial vasculature: Normal flow voids are maintained at the skull base. Orbits: The bony orbits are grossly intact. Orbital contents are normal in appearance noting bilateral ocular lens implants. Sinuses and mastoids: Clear. Calvarium: Unremarkable. Cervical cord: Partially visualized cervical spinal cord is normal in morphology and signal intensity. IMPRESSION: 1. There is a 2.0 cm heterogeneously enhancing mass lesion centered in the right aspect of the juan c as detailed above. There are at least 2 additional punctate enhancing intracranial lesions, and metastatic disease is favored over a primary glial neoplasm. 2. There is surrounding edema and and mass effect with mild effacement of the fourth ventricle. 3. There is no evidence of hydrocephalus. 4. There is no hemorrhage or evidence of acute ischemia. 5. Additional findings as above.
[2021-08-25 09:16] LABS: Basophils # (auto) 0.01 K/uL (0-0.2); Basophils % (auto) 0.1 %; Hematocrit (blood only) 41.8 % (34.1-44.9); Hemoglobin 14.1 g/dl (12.0-16.0); Immature Granulocytes # (auto) 0.08 K/uL (0.00-0.02); Immature Granulocytes % (auto) 0.8 %; Lymphocytes % (auto) 8.9 %; Mean Corpuscular Hemoglobin 27.2 pg (25.0-34.0); Mean Corpuscular Hgb Conc 33.7 g/dL (32.0-36.0); Mean Corpuscular Volume 80.5 fL (80.0-100.0); Mean Platelet Volume 9.2 fL (9.4-12.3); Monocytes % (auto) 6.9 %; Neutrophils # (auto) 8.47 K/uL (1.4-6.5); Neutrophils % (auto) 83.3 %; Platelet Count 173 K/uL (130-400); RDW Coefficient of Variation 13.8 % (11.5-14.5); RDW Standard Deviation 39.7 fL (36.4-46.3); Red Blood Count 5.19 M/uL (3.93-5.22); White Blood Count 10.16 K/ul (4.8-10.8)
[2021-08-25] MEDS: AMOXICILLIN SUSP 400 MG/5 ML PO SCH ×3 (09:32→20:00)
[2021-08-25] MEDS: ATENOLOL 50 MG TABLET PO SCH ×3 (09:34→20:01)
[2021-08-25] MEDS: dexAMETHasone 4 MG TAB PO SCH ×4 (09:34→20:01)
[2021-08-25] MEDS: DOCUSATE SODIUM/SENNA 50/8.6MG TAB PO SCH (09:34)
[2021-08-25] MEDS: lisinopril 20 MG TAB PO SCH (09:34)
[2021-08-25] MEDS: PANTOprazole 40 MG TAB PO SCH ×3 (09:35→20:01)
[2021-08-25] MEDS: FAMOTIDINE 10 MG TABLET PO SCH ×3 (09:35→20:01)
[2021-08-25] MEDS: HEPARIN SOD 5,000 UNIT/0.5 ML VIAL SQ SCH ×2 (09:38→19:30)
[2021-08-25 09:43] LABS: Anion Gap 7 (3-11); BUN Creatinine Ratio 21.7 (10-20); Blood Urea Nitrogen 18 mg/dl (6-23); Calcium 8.5 mg/dl (8.5-10.1); Carbon Dioxide 31 mmol/L (21-32); Chloride 103 mmol/L (98-107); Est GFR (African American) 82.2 ml/min; Est GFR (Non-African American) 70.9 ml/min; Glucose 112 mg/dl (70-99(Fasting)); Magnesium 1.8 mg/dl (1.7-2.4); Phosphorus 2.7 mg/dl (2.5-4.9); Potassium 3.5 mmol/L (3.5-5.1); Sodium 141 mmol/L (136-145)
[2021-08-25] MEDS ORDERED: PROPOFOL IV EMULSION 10 MG/ML 20 ML VIAL IV ONE (11:38)
[2021-08-25] MEDS ORDERED: LIDOCAINE 2% MPF LOCAL 5 ML VIAL INFIL ONE (11:38)
[2021-08-25] MEDS ORDERED: KETAMINE 50 MG/5 ML SYRINGE ONE (11:43)
--- NOTE | 2021-08-25 13:58 | Anesthesiology Progress Note ---
Date of Service August 25, 2021 Anesthesia Post Procedure Vital Signs Vital Signs: Temp Pulse Pulse Resp BP Pulse Ox O2 Del Method 08/25/21 11:28 Room Air 08/25/21 09:30 78 08/25/21 08:08 36.6 C 58 L 16 151/91 H 95 08/25/21 05:42 36.6 C 69 18 144/91 H 97 Room Air 08/24/21 15:26 36.6 C 84 16 156/99 H 94 Room Air Transfer of Care Handoff Completed per policy Notes Mental Status: alert / awake / arousable Patient Amnestic to Procedure: Yes Nausea / Vomiting: adequately controlled Pain: adequately controlled Airway Patency, RR, SpO2: stable & adequate BP & HR: stable & adequate Hydration State: stable & adequate Anesthetic Complications: no major complications apparent and Pt Satisfied with anesthetic care
[2021-08-25] MEDS ORDERED: amLODIPine BESYLATE 5 MG TAB PO ONE (15:15)
--- NOTE | 2021-08-25 18:36 | Hospitalist Progress Note ---
Date of Service August 25, 2021 Assessment & Plan (1) Acute encephalopathy: Plan: Patient presents with several days of worsening confusion, urinary incontinence, agitation and angry outbursts, poor appetite, constipation She has never been like this before and typically is very pleasant as per family and cooperative. This coincides with her being started on benzodiazepines for sedation for radiation treatments CT head here negative Urine culture from 08/21 is growing Enterococcus-we will treat for UTI in case contributing to encephalopathy With elevated WBC count likely due to dexamethasone, she is afebrile and no other signs of infection other than UTI. Procalcitonin negative, chest x-ray negative. She does have known brain mets which are being treated with radiation I do not see encephalopathy listed as a side effect of her chemotherapy drug (Inlyta) Blood sugars have been normal, LFTs normal, and TSH mildly low at 0.042 Discontinued all benzodiazepines and added to allergy list as an adverse reaction to avoid these in the future Received IM Haldol overnight 08/23 for agitaiton and ripping IV out, also had Chavez placed for significant urinary retention, and had 2 doses of po Roxanol--> AM of 08/24 is significantly improved with mentation. Still slightly confused but no longer agitated and is taking pills. -Hold Marinol for now although this is not likely to be contributing -Dexamethasone could also be contributing but she was on this for the last 10 days and seemed to have no problems thus far-continue dexamethasone -switch meds from IV back to po. Continue to hold non-crucial meds such as statin,donepezil, tamsulosin -dc IVFs as no longer has IV and taking po now -advance diet to regular/easy to chew -Recommend sedation with propofol for her radiation treatment on Wednesday rather than any benzodiazepines-discussed with Dr. Jenaro Cohen of Rad On[facility] -Continue supportive care -maintain Chavez for now as this may have been contributing to agitation also -work on bowel regimen for severe constipation On 08/25 Patient had brain radiation. Patient is sedated. D/W , appears patienjt has been improving, but was confused on 08/24. Will monitor. Continue to hold benzo (2) UTI (urinary tract infection): Plan: Started ampicillin for Enterococcus UTI Convert to p.o. 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 continue XRT with Rad/Onc f/u with Dr. Violetta García/Onc after discharge (6) Brain metastasis: Plan: Radiation therapy will be consulted for final treatment course on Wednesday. Dr. Cohen aware Continue Decadron and convert back to po dosing at the 4mg po tid dosing she was recently tapered down to on 08/21 (7) Diabetes: Plan: Hemoglobin A1c 5.6% Blood sugar this morning 155 on venous draw We will hold off on any Accu-Cheks now as this may further agitate her and her sugars are normal If blood sugars become hyperglycemic on morning labs, will add supplemental insulin (8) Hypertension: Plan: restarted home meds. will add amlodipine as a one time dose. - IV hydralazine as needed (9) Hypothyroidism: Plan: TSH mildly low at 0.04 on 08/19 restart home levothyroxine 12.5mcg every other day and would consider lowering the dose further-follow as outpt (10) Dementia: Plan: Mild supportive care Plan DVT prophylaxis-SCDs, heparin SQ Disposition-continued stay on medical/surgical unit, improving, hopeful for continued improvement, Radiation tx on Wednesday, dc to home possibly 1-2 days Discussed all care extensively with daughter and at bedside Admission and Anticipated Discharge Date Admission Date: August 22, 2021 Subjective 70 yo female is sedated after radiation. Updated at bedside. Review of Systems Review of Systems: All systems reviewed & are unremarkable except as noted in HPI & below Physical Exam Constitutional: WD/WN, vitals as above (APPEARS THIN.) Eyes: PERRL, conjunctivae normal, anicteric sclerae ENMT: external ear and nose normal, oropharynx normal Neck: trachea midline, no thyromegaly Respiratory: normal respiratory effort, lungs clear to auscultation Cardiovascular: RRR, no murmur, no edema Gastrointestinal (Abdomen): normal bowel sounds, soft, nontender, no hepatosplenomegaly Musculoskeletal: no cyanosis or clubbing, extremities motor strength 5/5 Neurologic: PERRL, EOMI, accommodation nl, no face palsy, no dysarthria Psychiatric: Orientation: + not alert and + not oriented x 3 Lymphatic: no cervical or axillary lymphadenopathy Results & Data Results & Data ([facility]) Vital Signs (Past 12 Hours) Vital Signs Temp Pulse Pulse Pulse Pulse Resp BP 08/25/21 16:50 36.3 C L 55 L 16 151/87 H 08/25/21 15:45 36.3 C L 53 L 14 161/91 H 08/25/21 15:13 36.3 C L 47 L 16 162/86 H 08/25/21 14:45 36.3 C L 50 L 14 170/80 H 08/25/21 14:00 48 L 14 08/25/21 13:45 52 L 18 08/25/21 14:15 48 L 13 08/25/21 13:41 54 L 16 08/25/21 11:28 08/25/21 09:30 78 08/25/21 08:08 36.6 C 58 L 16 BP Pulse Ox O2 Del Method 08/25/21 16:50 97 08/25/21 15:45 95 Room Air 08/25/21 15:13 96 08/25/21 14:45 98 Room Air 08/25/21 14:00 184/85 H 97 Room Air 08/25/21 13:45 155/87 H 96 Room Air 08/25/21 14:15 172/89 H 97 Room Air 08/25/21 13:41 173/91 H 96 08/25/21 11:28 Room Air 08/25/21 09:30 08/25/21 08:08 151/91 H 95 PG Care Time/CCT Total # of Minutes Spent Total Time Spent with Patient: Total time spent is greater than 50% in coordination of care (as documented) at patient's floor/unit and/or counseling patient: Coding Level of Care Code 60837 Subseq Hosp Care Lvl 2 Diagnoses Acute encephalopathy G93.40 UTI (urinary tract infection) N39.0 Anorexia R63.0 Constipation K59.00 Renal cell cancer C64.9 Brain metastasis C79.31 Diabetes E11.9 Hypertension I10 Hypothyroidism E03.9 Dementia F03.90
[2021-08-25] MEDS: MIRTAZAPINE TAB 15 MG TAB PO SCH ×2 (19:28→20:01)
[2021-08-25] MEDS: ONDANSETRON INJ 2 MG/ML 2 ML VIAL IV PRN (23:35)
[2021-08-26] MEDS: AXITINIB PO SCH ×2 (04:08→17:46)
[2021-08-26] MEDS: PANTOprazole 40 MG TAB PO SCH ×3 (08:57→20:34)
[2021-08-26] MEDS: DOCUSATE SODIUM/SENNA 50/8.6MG TAB PO SCH ×2 (08:57→11:48)
[2021-08-26] MEDS: HEPARIN SOD 5,000 UNIT/0.5 ML VIAL SQ SCH ×2 (08:57→20:36)
[2021-08-26] MEDS: ATENOLOL 50 MG TABLET PO SCH ×2 (08:58→20:34)
[2021-08-26] MEDS: FAMOTIDINE 10 MG TABLET PO SCH ×2 (08:58→20:35)
[2021-08-26] MEDS: lisinopril 20 MG TAB PO SCH (08:58)
[2021-08-26] MEDS ORDERED: ACETAMINOPHEN 1,000 MG/100 ML VIAL IV ONE (09:45)
[2021-08-26] MEDS: AMOXICILLIN SUSP 400 MG/5 ML PO SCH ×2 (10:20→20:48)
[2021-08-26] MEDS: dexAMETHasone 4 MG TAB PO SCH ×4 (12:29→20:36)
[2021-08-26] MEDS: LIDOCAINE 5% 1 PATCH TD SCH (12:29)
[2021-08-26 12:47] LABS: Hematocrit (blood only) 42.4 % (34.1-44.9); Hemoglobin 14.3 g/dl (12.0-16.0); Mean Corpuscular Hemoglobin 27.2 pg (25.0-34.0); Mean Corpuscular Hgb Conc 33.7 g/dL (32.0-36.0); Mean Corpuscular Volume 80.6 fL (80.0-100.0); Platelet Count 159 K/uL (130-400); RDW Coefficient of Variation 13.6 % (11.5-14.5); RDW Standard Deviation 38.8 fL (36.4-46.3); Red Blood Count 5.26 M/uL (3.93-5.22)
[2021-08-26 13:02] LABS: Anion Gap 7 (3-11); BUN Creatinine Ratio 21.6 (10-20); Blood Urea Nitrogen 16 mg/dl (6-23); Calcium 8.5 mg/dl (8.5-10.1); Carbon Dioxide 28 mmol/L (21-32); Chloride 100 mmol/L (98-107); Est GFR (African American) 94.5 ml/min; Est GFR (Non-African American) 81.5 ml/min; Glucose 147 mg/dl (70-99(Fasting)); Potassium 3.6 mmol/L (3.5-5.1); Sodium 135 mmol/L (136-145)
[2021-08-26] MEDS: ACETAMINOPHEN 325 MG TAB PO SCH (20:33)
[2021-08-26] MEDS: MIRTAZAPINE TAB 15 MG TAB PO SCH (20:35)
--- NOTE | 2021-08-26 20:48 | Hospitalist Progress Note ---
Date of Service August 26, 2021 Assessment & Plan (1) Acute encephalopathy: Plan: Patient presents with several days of worsening confusion, urinary incontinence, agitation and angry outbursts, poor appetite, constipation She has never been like this before and typically is very pleasant as per family and cooperative. This coincides with her being started on benzodiazepines for sedation for radiation treatments CT head here negative Urine culture from 08/21 is growing Enterococcus-we will treat for UTI in case contributing to encephalopathy With elevated WBC count likely due to dexamethasone, she is afebrile and no other signs of infection other than UTI. Procalcitonin negative, chest x-ray negative. She does have known brain mets which are being treated with radiation I do not see encephalopathy listed as a side effect of her chemotherapy drug (Inlyta) Blood sugars have been normal, LFTs normal, and TSH mildly low at 0.042 Discontinued all benzodiazepines and added to allergy list as an adverse reaction to avoid these in the future Received IM Haldol overnight 08/23 for agitaiton and ripping IV out, also had Chavez placed for significant urinary retention, and had 2 doses of po Roxanol--> AM of 08/24 is significantly improved with mentation. Still slightly confused but no longer agitated and is taking pills. -Hold Marinol for now although this is not likely to be contributing -Dexamethasone could also be contributing but she was on this for the last 10 days and seemed to have no problems thus far-continue dexamethasone -switch meds from IV back to po. Continue to hold non-crucial meds such as statin,donepezil, tamsulosin -dc IVFs as no longer has IV and taking po now -advance diet to regular/easy to chew -Recommend sedation with propofol for her radiation treatment on Wednesday rather than any benzodiazepines-discussed with Dr. Jenaro Cohen of [facility] -Continue supportive care -maintain Chavez for now as this may have been contributing to agitation also -work on bowel regimen for severe constipation On 08/25 Patient had brain radiation. Patient is sedated. D/W , appears patienjt has been improving, but was confused on 08/24. Will monitor. Continue to hold benzo On 08/26 Patient remains lethargic. will continue to hold benzo and monitor. Patient has been waking up for medications. (2) UTI (urinary tract infection): Plan: Started ampicillin for Enterococcus UTI Convert to p.o. amoxicillin 500mg po bid now that she is willing to take p.o.- last day of tx will be 08/29/21 (3) Anorexia: Plan: secondary to encephalopathy which is now improving restart mirtazapine encourage po intake by family members (4) Constipation: Plan: no BM in 10 days, poor po intake start senna/docusate, Bisacodyl [place] prn (5) Renal cell cancer: Plan: RCC with mets to brain and extensive LN mets Continue Axitinib PO BID- brought this medication from home. continue XRT with Rad/Onc f/u with Dr. Shipley Med/Onc after discharge (6) Brain metastasis: Plan: Radiation therapy will be consulted for final treatment course on Wednesday. Dr. Cohen aware Continue Decadron and convert back to po dosing at the 4mg po tid dosing she was recently tapered down to on 08/21 (7) Diabetes: Plan: Hemoglobin A1c 5.6% Blood sugar this morning 155 on venous draw We will hold off on any Accu-Cheks now as this may further agitate her and her sugars are normal If blood sugars become hyperglycemic on morning labs, will add supplemental insulin (8) Hypertension: Plan: restarted home meds. will add amlodipine as a one time dose. - IV hydralazine as needed (9) Hypothyroidism: Plan: TSH mildly low at 0.04 on 08/19 restart home levothyroxine 12.5mcg every other day and would consider lowering the dose further-follow as outpt (10) Dementia: Plan: Mild supportive care Plan DVT prophylaxis-SCDs, heparin SQ Disposition-continued stay on medical/surgical unit, improving, hopeful for continued improvement, Radiation tx on Wednesday, dc to home possibly 1-2 days Discussed all care extensively with daughter and at bedside Admission and Anticipated Discharge Date Admission Date: August 22, 2021 Subjective 70 yo female remains lethargic. Family at bedside. Review of Systems Review of Systems: All systems reviewed & are unremarkable except as noted in HPI & below Physical Exam Constitutional: WD/WN, vitals as above (APPEARS THIN.) lethargic Eyes: PERRL, conjunctivae normal, anicteric sclerae ENMT: external ear and nose normal, oropharynx normal Neck: trachea midline, no thyromegaly Respiratory: normal respiratory effort, lungs clear to auscultation Cardiovascular: RRR, no murmur, no edema Gastrointestinal (Abdomen): normal bowel sounds, soft, nontender, no hepatosplenomegaly Musculoskeletal: no cyanosis or clubbing, extremities motor strength 5/5 Neurologic: PERRL, EOMI, accommodation nl, no face palsy, no dysarthria Psychiatric: Orientation: + not alert and + not oriented x 3 Lymphatic: no cervical or axillary lymphadenopathy Results & Data Results & Data ([facility]) Vital Signs (Past 12 Hours) Vital Signs Temp Pulse Resp BP Pulse Ox 08/26/21 15:18 36.3 C L 70 16 163/94 H 95 PG Care Time/CCT Total # of Minutes Spent Total Time Spent with Patient: Total time spent is greater than 50% in coordination of care (as documented) at patient's floor/unit and/or counseling patient: Coding Level of Care Code 86787 Subseq Hosp Care Lvl 2 Diagnoses Acute encephalopathy G93.40 UTI (urinary tract infection) N39.0 Anorexia R63.0 Constipation K59.00 Renal cell cancer C64.9 Brain metastasis C79.31 Diabetes E11.9 Hypertension I10 Hypothyroidism E03.9 Dementia F03.90 Time Spent (min) 25
[2021-08-27] MEDS: AXITINIB PO SCH ×2 (05:42→17:30)
[2021-08-27] MEDS: LEVOTHYROXINE SODIUM 25 MCG TABLET PO SCH (05:43)
[2021-08-27] MEDS: ACETAMINOPHEN 325 MG TAB PO SCH ×3 (05:44→21:00)
[2021-08-27 08:01] LABS: Hematocrit (blood only) 44.8 % (34.1-44.9); Hemoglobin 15.1 g/dl (12.0-16.0); Mean Corpuscular Hemoglobin 27.1 pg (25.0-34.0); Mean Corpuscular Hgb Conc 33.7 g/dL (32.0-36.0); Mean Corpuscular Volume 80.4 fL (80.0-100.0); Mean Platelet Volume 9.3 fL (9.4-12.3); Platelet Count 163 K/uL (130-400); RDW Coefficient of Variation 13.6 % (11.5-14.5); RDW Standard Deviation 38.4 fL (36.4-46.3); Red Blood Count 5.57 M/uL (3.93-5.22); White Blood Count 10.13 K/ul (4.8-10.8)
[2021-08-27 08:22] LABS: BUN Creatinine Ratio 19.5 (10-20); C Reactive Protein 3.1 mg/dl (0-0.5); Est GFR (Non-African American) 77.7 ml/min
[2021-08-27] MEDS: FAMOTIDINE 10 MG TABLET PO SCH ×2 (08:42→20:59)
[2021-08-27] MEDS: dexAMETHasone 4 MG TAB PO SCH ×3 (08:42→21:00)
[2021-08-27] MEDS: ATENOLOL 50 MG TABLET PO SCH ×2 (08:43→21:00)
[2021-08-27] MEDS: PANTOprazole 40 MG TAB PO SCH ×2 (08:43→20:59)
[2021-08-27] MEDS: DOCUSATE SODIUM/SENNA 50/8.6MG TAB PO SCH (08:43)
[2021-08-27] MEDS: lisinopril 20 MG TAB PO SCH (08:43)
[2021-08-27] MEDS: LIDOCAINE 5% 1 PATCH TD SCH (08:44)
[2021-08-27] MEDS: HEPARIN SOD 5,000 UNIT/0.5 ML VIAL SQ SCH ×2 (08:44→21:00)
[2021-08-27] MEDS: AMOXICILLIN SUSP 400 MG/5 ML PO SCH ×2 (08:49→20:59)
[2021-08-27] MEDS ORDERED: CeleBREX 200 MG CAP PO ONE (14:38)
[2021-08-27] MEDS: MIRTAZAPINE TAB 15 MG TAB PO SCH (21:00)
--- NOTE | 2021-08-27 21:25 | Hospitalist Progress Note ---
Date of Service August 27, 2021 Assessment & Plan (1) Acute encephalopathy: Plan: Possible toxic encephalopathy in the setting of benzodiazepines use Patient presents with several days of worsening confusion, urinary incontinence, agitation and angry outbursts, poor appetite, constipation She has never been like this before and typically is very pleasant as per family and cooperative. This coincides with her being started on benzodiazepines for sedation for radiation treatments CT head here negative Urine culture from 08/21 is growing Enterococcus-we will treat for UTI in case contributing to encephalopathy With elevated WBC count likely due to dexamethasone, she is afebrile and no other signs of infection other than UTI. Procalcitonin negative, chest x-ray negative. She does have known brain mets which are being treated with radiation I do not see encephalopathy listed as a side effect of her chemotherapy drug (Inlyta) Blood sugars have been normal, LFTs normal, and TSH mildly low at 0.042 Discontinued all benzodiazepines and added to allergy list as an adverse reaction to avoid these in the future Received IM Haldol overnight 08/23 for agitaiton and ripping IV out, also had Chavez placed for significant urinary retention, and had 2 doses of po Roxanol--> AM of 08/24 is significantly improved with mentation. Still slightly confused but no longer agitated and is taking pills. -Hold Marinol for now although this is not likely to be contributing -Dexamethasone could also be contributing but she was on this for the last 10 days and seemed to have no problems thus far-continue dexamethasone -switch meds from IV back to po. Continue to hold non-crucial meds such as statin,donepezil, tamsulosin -dc IVFs as no longer has IV and taking po now -advance diet to regular/easy to chew -Recommend sedation with propofol for her radiation treatment on Wednesday rather than any benzodiazepines-discussed with Dr. Jenaro Cohen of Rad On[facility] -Continue supportive care -maintain Chavez for now as this may have been contributing to agitation also -work on bowel regimen for severe constipation On 08/25 Patient had brain radiation. Patient is sedated. D/W , appears patienjt has been improving, but was confused on 08/24. Will monitor. Continue to hold benzo On 08/26 Patient remains lethargic. will continue to hold benzo and monitor. Patient has been waking up for medications. On 08/27 Patient sleeps throughout most the day. She quickly awakens with verbal stimuli and eats small amounts. She participated more with PT and was able to sit at side of bed momentarily. However, she has mainly been bedridden. Family does not feel comfortable bringing her home, until she is able to stand; or if electric bed and sky lift has been setip. Family is interetsed in a semi-electric hospital bed: This is required as patient requires frequenct changes in body position. Patient also requires positioning of the body in a way not feasible with ordinary bed to alleviate pain. Sky lift required because transfer between bed and chair, wheelchair or commode is required and without the use of the lift, the patient would be be confined. (2) UTI (urinary tract infection): Plan: Started ampicillin for Enterococcus UTI Convert to p.o. amoxicillin 500mg po bid now that she is willing to take p.o.- last day of tx will be 08/29/21 (3) Anorexia: Plan: Severe protein-calorie malnutrition Patient with extremely low weight of 58kg on prior visit and recommendation to re-weigh patient by RD. Patient taking very low caloric intake past several weeks per family. As above, uncooperative, confusion, poor appetite, hx esophageal strictures, [place] [place] cancer Treatment: RD consult, I&O, IV hydration secondary to encephalopathy/ malignancy restart mirtazapine encourage po intake by family members Patient has been eating more recently but her overall calorie intake remains low. 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 continue XRT with Rad/Onc f/u with Dr. Violetta García/Onc after discharge (6) Brain metastasis: Plan: Radiation therapy will be consulted for final treatment course on Wednesday. Dr. Cohen aware Continue Decadron and convert back to po dosing at the 4mg po tid dosing she was recently tapered down to on 08/21 (7) Diabetes: Plan: Hemoglobin A1c 5.6% Blood sugar this morning 155 on venous draw We will hold off on any Accu-Cheks now as this may further agitate her and her sugars are normal If blood sugars become hyperglycemic on morning labs, will add supplemental insulin (8) Hypertension: Plan: restarted home meds. will add amlodipine as a one time dose. - IV hydralazine as needed (9) Hypothyroidism: Plan: TSH mildly low at 0.04 on 08/19 restart home levothyroxine 12.5mcg every other day and would consider lowering the dose further-follow as outpt (10) Dementia: Plan: Mild supportive care Plan DVT prophylaxis-SCDs, heparin SQ Disposition-continued stay on medical/surgical unit. Overall, poor prognosis. Encepahlopathy appears better, but overall nutrition is poor and she has been bedridden. Awaiting bed and sky lift. Possible discharge or Wednesday. Discussed all care extensively with daughter and at bedside Admission and Anticipated Discharge Date Admission Date: August 22, 2021 Subjective Patient reports no new symptoms. She states she feels tired. Review of Systems Review of Systems: All systems reviewed & are unremarkable except as noted in HPI & below Physical Exam Constitutional: WD/WN, vitals as above (APPEARS THIN.) Eyes: PERRL, conjunctivae normal, anicteric sclerae ENMT: external ear and nose normal, oropharynx normal Neck: trachea midline, no thyromegaly Respiratory: normal respiratory effort, lungs clear to auscultation Cardiovascular: RRR, no murmur, no edema Gastrointestinal (Abdomen): normal bowel sounds, soft, nontender, no hepatosplenomegaly Musculoskeletal: no cyanosis or clubbing, extremities motor strength 5/5 Neurologic: PERRL, EOMI, accommodation nl, no face palsy, no dysarthria Psychiatric: Orientation: + not alert and + not oriented x 3 Eye Contact: + poor eye contact Lymphatic: no cervical or axillary lymphadenopathy Results & Data Results & Data ([facility]) Vital Signs (Past 12 Hours) Vital Signs Temp Pulse Resp BP Pulse Ox O2 Del Method 08/27/21 15:05 36.4 C L 59 L 16 120/83 96 Room Air PG Care Time/CCT Total # of Minutes Spent Total Time Spent with Patient: Total time spent is greater than 50% in coordination of care (as documented) at patient's floor/unit and/or counseling patient: Coding Level of Care Code 00219 Subseq Hosp Care Lvl 3 Diagnoses Acute encephalopathy G93.40 UTI (urinary tract infection) N39.0 Anorexia R63.0 Constipation K59.00 Renal cell cancer C64.9 Brain metastasis C79.31 Diabetes E11.9 Hypertension I10 Hypothyroidism E03.9 Dementia F03.90
[2021-08-28] MEDS: AXITINIB PO SCH ×2 (05:07→16:58)
[2021-08-28] MEDS: ACETAMINOPHEN 325 MG TAB PO SCH ×2 (05:07→14:29)
[2021-08-28 07:13] LABS: Hematocrit (blood only) 44.1 % (34.1-44.9); Hemoglobin 14.8 g/dl (12.0-16.0); Mean Corpuscular Hemoglobin 27.2 pg (25.0-34.0); Mean Corpuscular Hgb Conc 33.6 g/dL (32.0-36.0); Mean Corpuscular Volume 81.1 fL (80.0-100.0); Mean Platelet Volume 9.4 fL (9.4-12.3); Platelet Count 160 K/uL (130-400); RDW Coefficient of Variation 13.9 % (11.5-14.5); RDW Standard Deviation 39.4 fL (36.4-46.3); Red Blood Count 5.44 M/uL (3.93-5.22); White Blood Count 11.78 K/ul (4.8-10.8)
[2021-08-28] MEDS: DOCUSATE SODIUM/SENNA 50/8.6MG TAB PO SCH (08:41)
[2021-08-28] MEDS: dexAMETHasone 4 MG TAB PO SCH ×2 (08:41→14:29)
[2021-08-28] MEDS: lisinopril 20 MG TAB PO SCH (08:41)
[2021-08-28] MEDS: ATENOLOL 50 MG TABLET PO SCH ×2 (08:41→20:44)
[2021-08-28] MEDS: PANTOprazole 40 MG TAB PO SCH ×2 (08:41→20:44)
[2021-08-28] MEDS: FAMOTIDINE 10 MG TABLET PO SCH ×2 (08:42→20:44)
[2021-08-28] MEDS: LIDOCAINE 5% 1 PATCH TD SCH (08:43)
[2021-08-28] MEDS: AMOXICILLIN SUSP 400 MG/5 ML PO SCH ×3 (08:48→20:44)
[2021-08-28] MEDS: ENOXAPARIN INJ 40 MG/0.4 ML SYR SQ SCH (08:48)
--- NOTE | 2021-08-28 12:28 | Hospitalist Progress Note ---
Date of Service August 28, 2021 Assessment & Plan (1) Acute encephalopathy: Plan: Possible toxic encephalopathy in the setting of benzodiazepines use Patient presents with several days of worsening confusion, urinary incontinence, agitation and angry outbursts, poor appetite, constipation She has never been like this before and typically is very pleasant as per family and cooperative. This coincides with her being started on benzodiazepines for sedation for radiation treatments CT head here negative Urine culture from 08/21 is growing Enterococcus-we will treat for UTI in case contributing to encephalopathy With elevated WBC count likely due to dexamethasone, she is afebrile and no other signs of infection other than UTI. Procalcitonin negative, chest x-ray negative. She does have known brain mets which are being treated with radiation I do not see encephalopathy listed as a side effect of her chemotherapy drug (Inlyta) Blood sugars have been normal, LFTs normal, and TSH mildly low at 0.042 Discontinued all benzodiazepines and added to allergy list as an adverse reaction to avoid these in the future Received IM Haldol overnight 08/23 for agitaiton and ripping IV out, also had Chavez placed for significant urinary retention, and had 2 doses of po Roxanol--> AM of 08/24 is significantly improved with mentation. Still slightly confused but no longer agitated and is taking pills. -Hold Marinol for now although this is not likely to be contributing -Dexamethasone could also be contributing but she was on this for the last 10 days and seemed to have no problems thus far-continue dexamethasone -switch meds from IV back to po. Continue to hold non-crucial meds such as statin,donepezil, tamsulosin -dc IVFs as no longer has IV and taking po now -advance diet to regular/easy to chew -Recommend sedation with propofol for her radiation treatment on Wednesday rather than any benzodiazepines-discussed with Dr. Jenaro Cohen of Rad Onc -Continue supportive care -maintain Chavez for now as this may have been contributing to agitation also -work on bowel regimen for severe constipation On 08/25 Patient had brain radiation. Patient is sedated. D/W , appears patienjt has been improving, but was confused on 08/24. Will monitor. Continue to hold benzo On 08/26 Patient remains lethargic. will continue to hold benzo and monitor. Patient has been waking up for medications. On 08/27 Patient sleeps throughout most the day. She quickly awakens with verbal stimuli and eats small amounts. She participated more with PT and was able to sit at side of bed momentarily. However, she has mainly been bedridden. Family does not feel comfortable bringing her home, until she is able to stand; or if electric bed and sky lift has been setip. Family is interetsed in a semi-electric hospital bed: This is required as patient requires frequenct changes in body position. Patient also requires positioning of the body in a way not feasible with ordinary bed to alleviate pain. Sky lift required because transfer between bed and chair, wheelchair or commode is required and without the use of the lift, the patient would be be confined. 08/28: First time seeing patient, no change today with respect to management with respect to mental status; in my view, very possible mental status changes secondary to brain metastases (2) UTI (urinary tract infection): Plan: Started ampicillin for Enterococcus UTI Converted to p.o. amoxicillin 500mg po tid now that she is willing to take p.o.- last day of tx will be 08/29/21 (3) Anorexia: Plan: Severe protein-calorie malnutrition Patient with extremely low weight of 58kg on prior visit and recommendation to re-weigh patient by RD. Patient taking very low caloric intake past several weeks per family. As above, uncooperative, confusion, poor appetite, hx esophageal strictures, maria del carmen cancer Treatment: RD consult, I&O, IV hydration secondary to encephalopathy/ malignancy restart mirtazapine encourage po intake by family members Patient has been eating more recently but her overall calorie intake remains low. 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 Rad/Onc discharge note noted f/u with Dr. Shipley Med/Onc after discharge (6) Brain metastasis: Plan: Radiation therapy will be consulted for final treatment course on Wednesday. Dr. Cohen aware Continue Decadron and convert back to po dosing at the 4mg po tid dosing she was recently tapered down to on 08/21 See above (7) Diabetes: Plan: Hemoglobin A1c 5.6% Blood sugar this morning 155 on venous draw We will hold off on any Accu-Cheks now as this may further agitate her and her sugars are normal If blood sugars become hyperglycemic on morning labs, will add supplemental insulin (8) Hypertension: Plan: restarted home meds. will add amlodipine as a one time dose. - IV hydralazine as needed (9) Hypothyroidism: Plan: TSH mildly low at 0.04 on 08/19 restart home levothyroxine 12.5mcg every other day and would consider lowering the dose further-follow as outpt (10) Dementia: Plan: Mild supportive care Plan DVT prophylaxis-SCDs, heparin SQ Disposition-continued stay on medical/surgical unit. Overall, poor prognosis. Encepahlopathy appears better, but overall nutrition is poor and she has been bedridden. Awaiting bed and sky lift. Possible discharge or Wednesday. Discussed all care extensively with daughter and at bedside Admission and Anticipated Discharge Date Admission Date: August 22, 2021 Subjective Patient reports no new symptoms. She states she feels tired. Physical Exam Physical Exam: Constitutional and general: sedate, looks biologic age Head and face: No puffiness, atraumatic Eyes: No scleral icterus, extraocular movements normal Neck: Supple, no JVD Musculoskeletal: No acute joint swelling, no bony abnormalities Skin/dermatologic/integument: No rash, no purpura Hematologic and lymphatic: pallor none, no petechia Gastrointestinal/abdomen: Nondistended, soft, nonacute Neurologic: Grossly nonfocal Cardiovascular: Heart rhythm regular, no rub, no murmur, no gallop Respiratory: Chest movements equal, no use of accessory muscles, no adventitious sounds Extremities: No edema, no cyanosis Results & Data Results & Data ([facility]) Vital Signs (Past 12 Hours) Vital Signs Temp Pulse Resp BP Pulse Ox O2 Del Method 08/28/21 07:54 36.5 C 67 16 132/84 94 Room Air Laboratory Results Laboratory Results - last 24 hr 08/28/21 06:48 WBC 11.78 H RBC 5.44 H Hgb 14.8 Hct 44.1 MCV 81.1 MCH 27.2 MCHC 33.6 RDW Std Deviation 39.4 RDW Coeff of Dez 13.9 Plt Count 160 MPV 9.4 PG Care Time/CCT Total # of Minutes Spent Total Time Spent with Patient: Total time spent is greater than 50% in coordination of care (as documented) at patient's floor/unit and/or counseling patient: Coding Level of Care Code 11113 Subseq Hosp Care Lvl 2 Diagnoses Acute encephalopathy G93.40 UTI (urinary tract infection) N39.0 Anorexia R63.0 Constipation K59.00 Renal cell cancer C64.9 Brain metastasis C79.31 Diabetes E11.9 Hypertension I10 Hypothyroidism E03.9 Dementia F03.90
--- NOTE | 2021-08-28 15:56 | Palliative Care Consultation ---
Date of Consultation August 28, 2021 Assessment & Plan (1) Confusion: Beyond baseline dementia with known brain metastasis. (2) Generalized weakness: With poor po intake and difficulty swallowing (3) Palliative care encounter: I met with Mr. Whiteside at bedside. He tells me that Jesica had told Dr. Shipley that she wanted to fight the cancer and said the same thing a few days ago. He feels that he is not in a position to contradict her wishes. He tells me that she had never really discussed her thoughts about goals of care or advanced illness prior to her diagnosis. He feels that if she were able to get some nutrition, she would get better and continue cancer treatment. I asked him what "fighting" meant to him and Jesica. He feels that doing anything necessary to prolong her life and possibly allow her to improve. He did not feel that there were any particular limits to that. We talked about her frailty and weakness making it difficult for her to tolerate treatment and improve. He would be agreeable to physical therapy though told him that I do not think that she would be able to do that in her current state. We talked about artificial feeding and he would definitely be in favor of that. I discussed limited benefit of artificial feeding in a situation like this, as well as risks for infection and aspiration. He acknowledges this and is willing to accept those risks. He believes that Dr. Shipley felt that she would get better or she wouldn't have started the treatment. We discussed difference in her status between then and now. I think he would benefit from being able to speak to Dr. Shipley about Jesica's prognosis and treatment. Discussed oncology referral with Dr. Max. History of Present Illness Reason for Consultation: goals of care Requesting Physician: Dr. Khan Attending Physician: Milind Max MD History of Present Illness 70 yo lady with dementia who was diagnosed with renal cell carcinoma in November of 2020. She had nephrectomy and has been seeing Dr. Shipley. She was started on keytruda and axitinib. Her tells me that just a few weeks ago, she was shopping on her own in [place], where her daughter lives. She had been playing cards with him two weeks ago. He also notes that she has had poor appetite and decreased oral intake with progressive weakness over the last couple weeks. She had some left sided weakness as well. MRI from 08/05 revealed a 2cm right pontine lesion which was though to be metastatc disease . She did also have vasogenic edema and some mild mass effect. She has been on steroids and received radiation treatment. She has also had delirium with agitation at times. Today, she is lethargic. She does not respond to conversation. She has been noted to have some difficulty swallowing. Allergies Allergy/AdvReac Type Severity Reaction Status Date / Time diazepam [From Valium] AdvReac Intermediate Agitated Verified 08/23/21 14:07 lorazepam AdvReac Intermediate Agitated Verified 08/23/21 14:07 Home Medications Medication Instructions Recorded Confirmed Type famotidine 10 mg tablet (Acid 10 mg PO BID 01/16/21 08/22/21 History [employer] (famotidine)) levothyroxine 25 mcg capsule 12.5 mcg PO Q OTHER DAY 01/16/21 08/22/21 History mirtazapine 15 mg tablet 15 mg PO HS 02/12/21 08/22/21 History simvastatin 20 mg tablet 20 mg PO HS 02/12/21 08/22/21 History phenazopyridine 200 mg tablet 200 mg PO Q8H PRN pain #10 tabs 07/14/21 08/22/21 Rx (Pyridium) tamsulosin 0.4 mg capsule 0.4 mg PO HS #30 caps 07/14/21 08/22/21 Rx lisinopril 20 mg tablet 20 mg PO QAM 07/30/21 08/22/21 History ondansetron 4 mg disintegrating 4 - 8 mg PO Q8H PRN nausea and 07/30/21 08/22/21 Rx tablet vomiting #14 tabs atenolol 50 mg tablet 50 mg PO BID 08/05/21 08/22/21 History donepezil 10 mg tablet 10 mg PO HS 08/05/21 08/22/21 History pantoprazole 40 mg tablet,delayed 40 mg PO BID 30 days #60 tabs 08/06/21 08/22/21 Rx release (Protonix) lorazepam 0.5 mg tablet 0.5 mg buccal .COMPLEX #3 tabs 08/07/21 08/22/21 Rx lorazepam 0.5 mg tablet 0.5 mg PO .COMPLEX PRN anxiety #4 08/18/21 08/22/21 Rx tabs diazepam 5 mg tablet (Valium) 5 mg PO .COMPLEX PRN anxiety #3 08/20/21 08/22/21 Rx tabs axitinib 5 mg tablet (Inlyta) 5 mg PO BID 08/22/21 08/22/21 History dexamethasone 4 mg tablet 4 mg PO TID 08/24/21 08/24/21 History Patient History Medical History Anxiety and depression Borderline type 2 diabetes mellitus DIET CONTROLLED Brain metastasis Cardiac murmur Pt and report chronic, deny any h/o previous echo; no available re cords Dementia History of CVA (cerebrovascular accident) incidental finding remote per neuro per pt's -- event unk to pt - no deficits -SECOND NEURO SAID NO EVIDENCE OF STROKE- FOLLOWS W/ [facility]- LAST VISIT SPRING 2021 History of esophageal dilatation History of skin cancer removed HLD (hyperlipidemia) HTN (hypertension) controlled, stable per pt and Hypothyroidism Left hemiparesis Poor short term memory Renal cancer brain mets Scoliosis Surgical History History of cataract surgery R/L History of colonoscopy History of esophagogastroduodenoscopy (EGD) History of hysterectomy History of nephrectomy, right 02/17/21: Grade 2 view, MAC 3, ETT 7.0. 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 Required: No Beliefs That Will Affect Care: None marital status: Current Living Situation: Spouse current occupational status: retired Feels Safe at Home: Yes Assistive Devices: Cane, Walker and Wheelchair Review of Systems Review of Systems: Unobtainable due to reduced consciousness Physical Exam Constitutional: + ill appearing and + thin Respiratory: normal respiratory effort; no labored breathing audible tracheal secretions Musculoskeletal: Extremities: extremities normal to inspection Genitourinary: incontinent Results & Data ([facility]) Vital Signs (Past 12 Hours) Vital Signs Temp Pulse Resp BP Pulse Ox O2 Del Method O2 Flow Rate 08/28/21 15:29 90 Nasal Cannula 5 08/28/21 15:21 87 L Nasal Cannula 4 08/28/21 15:12 97.7 F 70 16 137/86 84 L Room Air 08/28/21 07:54 97.7 F 67 16 132/84 94 Room Air PG Care Time/CCT Total # of Minutes Spent Total Time Spent: 70 Total Time Spent with Patient: Total time spent is greater than 50% in coordination of care (as documented) at patient's floor/unit and/or counseling patient: goals of care, prognosis, family education and support, coordination of care. Coding Level of Care Code 42199 Initial Inpt Care Lvl 3 Diagnoses Confusion R41.0 Generalized weakness R53.1 Palliative care encounter Z51.5
[2021-08-28] MEDS: SODIUM CHLORIDE 0.9% 500 ML IV SCH (16:18)
--- NOTE | 2021-08-28 16:44 | XRay Report ---
XR chest 1V portable CLINICAL HISTORY: hypoxia TECHNIQUE: Single frontal radiograph of the chest was obtained. Comparison: Comparison is made to chest radiograph 08/22/2021 FINDINGS: No lines and tubes are seen. The cardiomediastinal silhouette is normal. Right lung is underinflated. No opacities are seen. No evidence of pleural effusion or pneumothorax. IMPRESSION: No acute chest disease. ACT 112: Negative or not required by law. Electronically signed by: Dirk Hurtado M.D. 08/28/2021 4:43 PM
[2021-08-28] MEDS ORDERED: ACETAMINOPHEN 1000 MG/100 ML IV IV PRN (20:18)
[2021-08-28] MEDS ORDERED: HYDROmorphone INJ 0.5 MG/0.5 ML SYR IV STA (20:18)
[2021-08-28] MEDS: MIRTAZAPINE TAB 15 MG TAB PO SCH (20:44)
[2021-08-28] MEDS: ONDANSETRON INJ 2 MG/ML 2 ML VIAL IV PRN (20:47)
[2021-08-29] MEDS: dexAMETHasone 4 MG in SYRINGE 0 ML IV SCH ×4 (00:02→17:21)
[2021-08-29] MEDS: SODIUM CHLORIDE 0.9% 500 ML IV SCH ×4 (00:02→21:48)
[2021-08-29] MEDS: AXITINIB PO SCH (04:52)
[2021-08-29] MEDS: LEVOTHYROXINE SODIUM 25 MCG TABLET PO SCH (06:26)
--- NOTE | 2021-08-29 07:48 | Hospitalist Progress Note ---
Date of Service August 29, 2021 Assessment & Plan (1) AMS (altered mental status): Plan: Previous note noted, thought to be due to benzodiazepine induced toxic encephalopathy; in my view likely due to intracranial metastasis with possible superimposed radiation effect/edema -On IV steroids at higher dose per discussion with oncology (2) Respiratory failure: Plan: More hypoxic; very poor respiratory drivesuspect central Spoke to husbandfull code for now including NIV and mechanical ventilation though they would like to avoid latter; Palliative care oncology input appreciated (3) Acute encephalopathy: Plan: Possible superimposed due to benzodiazepine; avoid same; Haldol as neededsee previous notes -Will obtain EEG and consider repeat MRI per oncology draft; consider neurology input, empiric Keppra (4) UTI (urinary tract infection): Plan: Started ampicillin for Enterococcus UTI Converted to p.o. amoxicillin 500mg po tid now that she is willing to take p.o.- last day of tx will be 08/29/21-If remains n.p.o. then may need to switch to IV ampicillin or Unasyn (5) Anorexia: Plan: Severe protein-calorie malnutrition Patient with extremely low weight of 58kg on prior visit and recommendation to re-weigh patient by RD. Patient taking very low caloric intake past several weeks per family. As above, uncooperative, confusion, poor appetite, hx esophageal strictures, maria del carmen cancer Treatment: RD consult, I&O, IV hydration secondary to encephalopathy/ malignancy restart mirtazapine encourage po intake by family members Patient has been eating more recently but her overall calorie intake remains low. Depending on goals of care could need tube feeding if they desire (6) Constipation: Plan: has had bowel movements, (7) Renal cell cancer: Plan: RCC with mets to brain and extensive LN mets Continue Axitinib PO BID- brought this medication from home. Rad/Onc discharge note noted f/u with Dr. Shipley Med/Onc after discharge (8) Brain metastasis: Plan: Radiation completed, as above (9) Diabetes: Plan: Hemoglobin A1c 5.6% Blood sugar this morning 155 on venous draw We will hold off on any Accu-Cheks now as this may further agitate her and her sugars are normal If blood sugars become hyperglycemic on morning labs, will add supplemental insulin (10) Hypertension: Plan: At present adjust/hold meds as appropriate (11) Hypothyroidism: Plan: TSH mildly low at 0.04 on 08/19 restart home levothyroxine 12.5mcg every other day and would consider lowering the dose further-follow as outpt (12) Dementia: Plan: Mild supportive care Plan N.p.o. at present, speech therapy consult pending Will provide updated addendum as appropriate Admission and Anticipated Discharge Date Admission Date: August 22, 2021 Subjective Follow-up of altered mental statushypoxic this a.m., arousable though sedate Results & Data Results & Data ([facility]) Vital Signs (Past 12 Hours) Vital Signs Temp Pulse Pulse Resp BP BP Pulse Ox 08/29/21 07:25 36.9 C 93 H 16 97/73 L 08/29/21 07:21 87 L 08/29/21 07:10 70 L 08/29/21 01:23 08/29/21 00:38 36.5 C 80 24 123/79 92 08/28/21 20:00 O2 Del Method O2 Flow Rate 08/29/21 07:25 08/29/21 07:21 Oxymask 15 08/29/21 07:10 Room Air 08/29/21 01:23 Nasal Cannula 4 08/29/21 00:38 Nasal Cannula 3 08/28/21 20:00 Nasal Cannula 4 PG Care Time/CCT Total # of Minutes Spent Total Time Spent with Patient: Total time spent is greater than 50% in coordination of care (as documented) at patient's floor/unit and/or counseling patient: Coding Level of Care Code 71246 Subseq Hosp Care Lvl 2 Diagnoses AMS (altered mental status) R41.82 Respiratory failure J96.90 Acute encephalopathy G93.40 UTI (urinary tract infection) N39.0 Anorexia R63.0 Constipation K59.00 Renal cell cancer C64.9 Brain metastasis C79.31 Diabetes E11.9 Hypertension I10 Hypothyroidism E03.9 Dementia F03.90
[2021-08-29 07:52] LABS: Base Excess ABG 0.3 mEq/L (-9-1.8); HCO3 ABG 23 mmol/L (19-24); Oxygen Saturation ABG 88.2 % (90-95); PCO2 ABG 32 mmHg (35-46); PO2 ABG 54 mmHg (80-95); pH ABG 7.47 (7.35-7.45)
[2021-08-29 07:53] LABS: Allen Test Pos (Pos)
[2021-08-29] MEDS: ENOXAPARIN INJ 40 MG/0.4 ML SYR SQ SCH (08:11)
[2021-08-29] MEDS: FAMOTIDINE 10 MG TABLET PO SCH (08:11)
[2021-08-29] MEDS: LIDOCAINE 5% 1 PATCH TD SCH (08:11)
[2021-08-29] MEDS: DOCUSATE SODIUM/SENNA 50/8.6MG TAB PO SCH (08:11)
[2021-08-29] MEDS: ATENOLOL 50 MG TABLET PO SCH (08:11)
[2021-08-29] MEDS: AMOXICILLIN SUSP 400 MG/5 ML PO SCH (08:11)
[2021-08-29] MEDS: PANTOprazole 40 MG TAB PO SCH (08:12)
[2021-08-29] MEDS: lisinopril 20 MG TAB PO SCH (08:12)
[2021-08-29] MEDS ORDERED: VANCOMYCIN HCL 1,000 MG in SODIUM CHLORIDE 0.9% 500 ML IV ONE (09:03)
[2021-08-29] MEDS ORDERED: VANCOMYCIN CONSULT ACTIVE PRN (09:03)
[2021-08-29] MEDS ORDERED: CEFEPIME 2,000 MG in SYRINGE 0 ML IV SCH (09:03)
[2021-08-29] MEDS ORDERED: ALBUMIN 5% 250 ML IV ONE ×2 (09:03→10:45)
--- NOTE | 2021-08-29 09:46 | XRay Report ---
SINGLE VIEW CHEST CLINICAL HISTORY: Sepsis. Renal cell carcinoma. FINDINGS: 2 AP, portable, upright chest radiographs are compared to study dated 08/28/2021. Correlatio n is made with PET/CT dated 06/30/2021. The examination is severely degraded by portable technique and patient rotation. The cardiomediastinal silhouette is unremarkable. There is elevation of the right hemidiaphragm with right basilar opacities. There is a nodular density in the perihilar right upper lobe measuring up to 2.5 cm. There is also likely right hilar adenopathy. The left lung appears clear . No large pleural effusion or pneumothorax is seen. The skeletal structures are osteopenic. Degenera tive change and scoliosis is noted in the thoracic spine. The bony thorax is grossly intact. Cholecys tectomy clips are noted in the right upper quadrant. IMPRESSION: 1. There is a nodular right perihilar opacity. Differential considerations include metastatic disease or less likely a round pneumonia. There is also likely right hilar adenopathy. Consider correlation with a dedicated contrast-enhanced chest CT for further assessment. 2. There is chronic elevation of the right hemidiaphragm. Right basilar opacities likely represent sc arring/atelectasis. Clinical correlation will be required. 3. The left lung appears clear. ACT 112: Negative or not required by law. Electronically signed by: Barrera Henderson M.D. 08/29/2021 9:45 AM
[2021-08-29] MEDS: PANTOprazole 40 MG in SYRINGE 0 ML IV SCH ×2 (10:32→21:48)
[2021-08-29 10:45] LABS: Albumin Level 2.9 gm/dl (3.4-5.0); BUN Creatinine Ratio 32.9 (10-20); Bilirubin,Total 1.1 mg/dl (0.2-1.0); Calcium 8.4 mg/dl (8.5-10.1); Creatinine Clr Calc Pharmacy 46.3 ml/min; Est GFR (African American) 91.5 ml/min; Est GFR (Non-African American) 78.9 ml/min; Globulin 2.8 gm/dl (2.5-4.0); Magnesium 1.8 mg/dl (1.7-2.4); Potassium 4.5 mmol/L (3.5-5.1); Total Protein 5.7 gm/dl (6.0-8.3)
[2021-08-29 10:50] LABS: Hematocrit (blood only) 48.3 % (34.1-44.9); Hemoglobin 15.9 g/dl (12.0-16.0); Mean Corpuscular Hemoglobin 27.2 pg (25.0-34.0); Mean Corpuscular Hgb Conc 32.9 g/dL (32.0-36.0); Mean Corpuscular Volume 82.7 fL (80.0-100.0); Platelet Count 146 K/uL (130-400); RDW Coefficient of Variation 14.6 % (11.5-14.5); RDW Standard Deviation 41.4 fL (36.4-46.3); Red Blood Count 5.84 M/uL (3.93-5.22); White Blood Count 13.07 K/ul (4.8-10.8)
[2021-08-29 11:02] LABS: INR 1.1 (0.9-1.1); Partial Thromboplastin Time 26.8 Seconds (21.0-31.0); Prothrombin Time 11.9 Seconds (9.0-12.0)
[2021-08-29 11:12] LABS: BUN Creatinine Ratio 26.4 (10-20); Bilirubin,Total 1.1 mg/dl (0.2-1.0); Calcium 8.6 mg/dl (8.5-10.1); Creatinine Clr Calc Pharmacy 38.7 ml/min; Est GFR (African American) 73.6 ml/min; Est GFR (Non-African American) 63.5 ml/min; Potassium 4.6 mmol/L (3.5-5.1)
[2021-08-29 11:14] LABS: Basophils # (auto) 0.03 K/uL (0-0.2); Basophils % (auto) 0.2 %; Immature Granulocytes # (auto) 0.07 K/uL (0.00-0.02); Immature Granulocytes % (auto) 0.5 %; Lymphocytes % (auto) 3.1 %; Monocytes # (auto) 0.53 K/uL (0.24-0.82); Monocytes % (auto) 4.1 %; Neutrophils # (auto) 12.04 K/uL (1.4-6.5); Neutrophils % (auto) 92.1 %
--- NOTE | 2021-08-29 11:29 | Critical Care Consultation ---
Date of Consultation August 29, 2021 Assessment & Plan (1) Acute respiratory failure with hypoxia: (2) Brain metastasis: (3) Acute encephalopathy: Plan 70-year-old female with a history of renal cell carcinoma with metastases to her brain presenting to the ICU due to worsening encephalopathy and hypoxemia. Neurologic: Avoid sedating agents unless the patient goes to comfort care route or hospice route. MRI of the brain and CT head consistent with a history of metastatic renal cell carcinoma. Palliative care and oncology on board. Prognosis overall is very poor. Family still desires to proceed with aggressive measures including intubation. Pulmonary: Patient hypoxemic and requiring high flow oxygen. We will get a stat CT chest to evaluate for pulmonary embolism and to better define the lung parenchyma. Low threshold for intubation given altered mental status. Cardiovascular: Maintain mean arterial pressures above 65 mmHg. There is high likelihood of underlying sepsis. Broad-spectrum antibiotics initiated. Albumin 250 mL x 2 ordered. Gastrointestinal: Maintain n.p.o. status at this time. Renal: Creatinine within normal limits. Replace electrolytes per protocol. Lactate mildly elevated. Infectious disease: Empiric broad-spectrum antibiotics initiated. Urine culture and blood cultures ordered. Procalcitonin ordered as well. Hematologic: History of renal cell carcinoma with metastatic disease to her brain. Prognosis poor as noted above. We will hold chemotherapy agents while inpatient given the risk of immunosuppression in the context of sepsis and increased risk of blood clot. Low threshold to start heparin infusion given the possibility of a PE. Endocrine: TSH very low. We will check a free T4. VTE prophylaxis: Lovenox CODE STATUS: Full code Family at bedside: Not available at this time Disposition: ICU I have personally spent 49 minutes of critical care time in the direct management of this patient. This is a life/limb threatening event. This includes time spent evaluating patient, direct bedside care, chart review, placing orders, interpretation of diagnostic studies, discussion with consultants, patient, and family members, as well as other required patient management activities. This time is exclusive of all separately billable procedures, and teaching time and separate from and in addition to any other critical care service time. Thank you for allowing us to participate in the care of this patient. History of Present Illness Reason for Consultation: Worsening hypoxemic respiratory failure and hypotension Attending Physician: Milind Max MD History of Present Illness 70-year-old female with a past medical history of metastatic renal cell carcinoma status posttreatment with pembrolizumab/axitinib most recently on 08/19/2021 who presented to the hospital 08/22/2021 due to increasing weakness and fatigue. ICU was consulted due to worsening mental status and increasing oxygen demands. Patient was frequently taking off her oxygen mask on the floor and desaturating into the 60s and 70s. She was briefly hypotensive in the ICU with her blood pressures in the 90s over 50s. This is improved with albumin infusion. Stat CT chest was ordered to evaluate for PE. Patient is very lethargic and history is difficult to obtain for the patient. She denies any pain at present. Back she does note shortness of breath. She appears confused. Patient is not currently on any IV antibiotics. She does have an elevated white count of 13,000. Lactate was 2.4. Creatinine within normal limits. Chest x- ray from today is personally reviewed which suggested nodular perihilar opacity and elevation of the right hemidiaphragm which is chronic. Atelectasis noted at the right lung base. MRI of her brain is suggestive of metastatic disease with a pontine lesion from 08/05/2021. CT head completed 08/22/2021 with no acute a bnormality. Right pontine lesion noted. Micro data significant for urine culture on 08/21/2021 which resulted Enterococcus vaginalis. Patient was on Augmentin. Allergies Allergy/AdvReac Type Severity Reaction Status Date / Time diazepam [From Valium] AdvReac Intermediate Agitated Verified 08/23/21 14:07 lorazepam AdvReac Intermediate Agitated Verified 08/23/21 14:07 Home Medications Medication Instructions Recorded Confirmed Type famotidine 10 mg tablet (Acid 10 mg PO BID 01/16/21 08/22/21 History Self Pay Specialist (famotidine)) levothyroxine 25 mcg capsule 12.5 mcg PO Q OTHER DAY 01/16/21 08/22/21 History mirtazapine 15 mg tablet 15 mg PO HS 02/12/21 08/22/21 History simvastatin 20 mg tablet 20 mg PO HS 02/12/21 08/22/21 History phenazopyridine 200 mg tablet 200 mg PO Q8H PRN pain #10 tabs 07/14/21 08/22/21 Rx (Pyridium) tamsulosin 0.4 mg capsule 0.4 mg PO HS #30 caps 07/14/21 08/22/21 Rx lisinopril 20 mg tablet 20 mg PO QAM 07/30/21 08/22/21 History ondansetron 4 mg disintegrating 4 - 8 mg PO Q8H PRN nausea and 07/30/21 08/22/21 Rx tablet vomiting #14 tabs atenolol 50 mg tablet 50 mg PO BID 08/05/21 08/22/21 History donepezil 10 mg tablet 10 mg PO HS 08/05/21 08/22/21 History pantoprazole 40 mg tablet,delayed 40 mg PO BID 30 days #60 tabs 08/06/21 08/22/21 Rx release (Protonix) lorazepam 0.5 mg tablet 0.5 mg buccal .COMPLEX #3 tabs 08/07/21 08/22/21 Rx lorazepam 0.5 mg tablet 0.5 mg PO .COMPLEX PRN anxiety #4 08/18/21 08/22/21 Rx tabs diazepam 5 mg tablet (Valium) 5 mg PO .COMPLEX PRN anxiety #3 08/20/21 08/22/21 Rx tabs axitinib 5 mg tablet (Inlyta) 5 mg PO BID 08/22/21 08/22/21 History dexamethasone 4 mg tablet 4 mg PO TID 08/24/21 08/24/21 History Patient History Medical History (Updated 08/29/21 @ 11:32 by Maximus Elizabeth MD) Acute encephalopathy Acute respiratory failure with hypoxia Anxiety and depression Borderline type 2 diabetes mellitus DIET CONTROLLED Brain metastasis Cardiac murmur Pt and report chronic, deny any h/o previous echo; no available records Dementia History of CVA (cerebrovascular accident) incidental finding remote per neuro per pt's -- event unk to pt - no deficits -SECOND NEURO SAID NO EVIDENCE OF STROKE- FOLLOWS W/ [facility]- LAST VISIT SPRING 2021 History of esophageal dilatation History of skin cancer removed HLD (hyperlipidemia) HTN (hypertension) controlled, stable per pt and Hypothyroidism Left hemiparesis Poor short term memory Renal cancer brain mets Scoliosis Surgical History History of cataract surgery R/L History of colonoscopy History of esophagogastroduodenoscopy (EGD) History of hysterectomy History of nephrectomy, right 02/17/21: Grade 2 view, MAC 3, ETT 7.0. History of tonsillectomy Hx of cholecystectomy 2020 S/P fine needle aspiration thyroid Family History Brother Hypertension Sister Cancer Breast Mother Cancer Breast Other No family history of adverse response to anesthesia Social History Smoking Status: Never smoker Second Hand Exposure: Yes; Hx Alcohol Use: No Hx Substance Use: No Preferred Language: Ecuadorean Communication Ability: Effective Development Coordinator Required: No Beliefs That Will Affect Care: None marital status: Current Living Situation: Spouse current occupational status: retired Feels Safe at Home: Yes Assistive Devices: Cane, Walker and Wheelchair Review of Systems Review of Systems: All systems reviewed & are unremarkable except as noted in HPI & below Physical Exam Physical Exam: Constitutional: Frail and thin appearing female moderate distress. Appears confused. Eyes: Pupils are equal round and reactive to light. Conjunctivae are normal. Anicteric sclera. Ears nose, mouth and throat: No obvious deformities. Neck: Trachea is midline. Visual inspection is normal. Respiratory: Diminished at the bases bilaterally. Mild tachypnea. Cardiovascular: Regular rate and rhythm. No murmurs. No edema. Gastrointestinal: Normal bowel sounds, soft, nontender and nondistended. No hepatosplenomegaly noted. Musculoskeletal: No cyanosis. Patient is able to move all extremities. Strength is 5 out of 5 in the upper and lower extremities. Skin: No rashes, warm dry and intact. Neurologic: No obvious focal neurological deficits seen. Psychiatric: Alert and oriented x3 with a euthymic affect. Results & Data Results & Data ([facility]) Vital Signs (Past 12 Hours) Vital Signs Temp Pulse Pulse Resp BP BP Pulse Ox 08/29/21 07:48 08/29/21 07:25 36.9 C 93 H 16 97/73 L 08/29/21 07:21 87 L 08/29/21 07:10 70 L 08/29/21 01:23 08/29/21 00:38 36.5 C 80 24 123/79 92 O2 Del Method O2 Flow Rate 08/29/21 07:48 Oxymask 08/29/21 07:25 08/29/21 07:21 Oxymask 15 08/29/21 07:10 Room Air 08/29/21 01:23 Nasal Cannula 4 08/29/21 00:38 Nasal Cannula 3 Coding Level of Care Code Critical Care 1st 30-74 mins Diagnoses Acute respiratory failure with hypoxia J96.01 Brain metastasis C79.31 Acute encephalopathy G93.40 Time Spent (min) 49
[2021-08-29] MEDS ORDERED: VANCOMYCIN HCL 500 MG in DEXTROSE 5% 100 ML IV ONE (11:30)
[2021-08-29] MEDS ORDERED: OPTIRAY 320 125ml IV ONE (12:16)
--- NOTE | 2021-08-29 12:39 | CT Scan Report ---
CT ANGIOGRAM OF THE CHEST CLINICAL HISTORY: Generalized weakness. Renal cell carcinoma. COMPARISON STUDY: Chest x-ray dated 08/29/2021. Abdominal CT dated 07/30/2021. TECHNIQUE: Following the IV administration of 120 cc of Optiray 320, CT angiogram of the chest was pe rformed from the upper abdomen to the thoracic inlet utilizing the pulmonary embolus protocol. Images are reviewed in the axial, sagittal, and coronal planes. 3-D MIPS images are created and assessed. I V contrast was administered without complication. A dose lowering technique was utilized adhering to the principles of ALARA. The examination is degraded by motion artifact, as well as by streak artifa ct from the arms which could not be elevated above the chest. CT DOSE: 330.60 mGy.cm FINDINGS: Thyroid: The thyroid gland is enlarged and heterogeneous. Thoracic aorta: There is mild atherosclerotic calcification of the thoracic aorta, which is normal in caliber and demonstrates standard 3-vessel arch anatomy. No dissection is seen. Pulmonary vasculature: The pulmonary trunk is normal in caliber. There are no filling defects identif ied in main, lobar, or segmental pulmonary branches to suggest pulmonary embolus. Heart: The heart is normal in size and without pericardial effusion. Lungs and pleural spaces: There is elevation of the right hemidiaphragm and dense airspace consolidat ion at the right lung base. Milder patchy airspace consolidation is seen throughout the right upper l obe and the superior segment of the right lower lobe. The left lung appears clear. No pleural effusio n is identified. The trachea is clear. Secretions/debris throughout the right lower lobe airways. Mediastinum: There is mediastinal lymphadenopathy. A subcarinal node measures 4.1 x 3.4 cm. Prevascul ar nodes measure up to 1.2 cm short axis. Paratracheal nodes measure up to 1.4 cm short axis. Mary: There is bilateral hilar adenopathy. Hilar nodes measure up to 1.7 cm in short axis.. Axillae: There is no axillary lymphadenopathy. Upper abdomen: Cholecystectomy clips are noted. There is a tiny hiatal hernia. The right kidney is heller rgically absent. Bulky retroperitoneal and retrocrural lymphadenopathy is likely unchanged. Diverticu la are noted in the partially imaged left colon. There is residual enteric contrast. Skeletal structures: The skeletal structures are osteopenic. Degenerative change and scoliosis is not ed throughout the imaged thoracolumbar spine. No lytic or blastic bony lesions are seen. IMPRESSION: 1. There is no evidence of pulmonary embolus in the main, lobar, or segmental pulmonary arteries. 2. There is dense airspace consolidation at the right lung base with milder patchy consolidation seen throughout the right upper lung. The appearance is typical for pneumonia/aspiration pneumonitis and this corresponds to the abnormality seen on today's chest x-ray. 3. Secretions/debris fill the right lower lobe airways suggesting aspiration. 4. There is bulky mediastinal lymphadenopathy as well as enlarged hilar lymph nodes. This likely repr esents metastatic disease. 5. Bulky retroperitoneal and retrocrural lymphadenopathy is likely unchanged from 07/30/2021 and consi stent with known metastatic disease. 6. The left lung appears clear. No pleural effusion is identified. ACT 112: Negative or not required by law Electronically signed by: Barrera Henderson M.D. 08/29/2021 12:36 PM
--- NOTE | 2021-08-29 12:52 | Pharmacy Report ---
Pharmacy PK ABX Note - Date of Service August 29, 2021 - Assessment and Plan Assessment 70 year old F receiving vancomycin and cefepime empirically in setting of acute respiratory failure, immunocompromised status (hx renal cell carcinoma with metastases to the brain). 08/21 Urine culture (+) E. faecalis, Blood cultures pending, MRSA nasal (-). Day #1 of antimicrobial therapy. Plan Vancomycin * Loading dose: vanc 1gm IV X 1 * Maintenance dose: 750 mg IV every 12 hours * Regimen is predicted to achieve target AUC/ESTEE of 400-600 mg/L.hr * Predicted steady state AUC: 534mg/L.hr * Predicted steady state trough: 17.8mcg/mL Pharmacy will continue to follow and will adjust dose/frequency as necessary. Thank you. Pharmacy has transitioned to AUC monitoring for vancomycin. AUC/ESTEE is the preferred PK/PD target and is associated with decreased risk of nephrotoxicity compared to traditional trough targets.
[2021-08-29 13:29] LABS: Appearance Urine Clear (Clear); Bacteria Urine Automated Negative (Negative); Bilirubin Urine Negative (Negative); Blood Urine 2+ (Negative); Color Urine Yellow; Epithelial Cell Urine Auto 0-5 /lpf (0-5); Glucose Urine UA Negative (Negative); Ketones Urine 1+ (Negative); Leukocyte Esterase Urine 2+ (Negative); Nitrite Urine Positive (Negative); Protein Urine Negative (Negative); Specific Gravity Urine > 1.045 (1.000-1.030); Urobilinogen Urine Negative (Negative); WBC Urine Automated >30 /hpf (0-5)
[2021-08-29] MEDS: ALBUTEROL 0.083% NEBU SOLN 3 ML VIAL NEB SCH ×2 (13:32→19:43)
--- NOTE | 2021-08-29 16:08 | Electroencephalogram ---
EEG Procedure Note Date of Service August 29, 2021 Start / End Times Start Time: 1251 End Time: [address] 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) Home Medication List Medication Instructions Recorded Confirmed Type famotidine 10 mg tablet (Acid 10 mg PO BID 01/16/21 08/22/21 History Wash Test Checker (famotidine)) levothyroxine 25 mcg capsule 12.5 mcg PO Q OTHER DAY 01/16/21 08/22/21 History mirtazapine 15 mg tablet 15 mg PO HS 02/12/21 08/22/21 History simvastatin 20 mg tablet 20 mg PO HS 02/12/21 08/22/21 History phenazopyridine 200 mg tablet 200 mg PO Q8H PRN pain #10 tabs 07/14/21 08/22/21 Rx (Pyridium) tamsulosin 0.4 mg capsule 0.4 mg PO HS #30 caps 07/14/21 08/22/21 Rx lisinopril 20 mg tablet 20 mg PO QAM 07/30/21 08/22/21 History ondansetron 4 mg disintegrating 4 - 8 mg PO Q8H PRN nausea and 07/30/21 08/22/21 Rx tablet vomiting #14 tabs atenolol 50 mg tablet 50 mg PO BID 08/05/21 08/22/21 History donepezil 10 mg tablet 10 mg PO HS 08/05/21 08/22/21 History pantoprazole 40 mg tablet,delayed 40 mg PO BID 30 days #60 tabs 08/06/21 08/22/21 Rx release (Protonix) lorazepam 0.5 mg tablet 0.5 mg buccal .COMPLEX #3 tabs 08/07/21 08/22/21 Rx lorazepam 0.5 mg tablet 0.5 mg PO .COMPLEX PRN anxiety #4 08/18/21 08/22/21 Rx tabs diazepam 5 mg tablet (Valium) 5 mg PO .COMPLEX PRN anxiety #3 08/20/21 08/22/21 Rx tabs axitinib 5 mg tablet (Inlyta) 5 mg PO BID 08/22/21 08/22/21 History dexamethasone 4 mg tablet 4 mg PO TID 08/24/21 08/24/21 History Inpatient Medication List Albuterol (Albuterol 0.083% Nebu Soln 3 Ml Vial) 2.5 mg NEB TIDR DARIA; Protocol Stop: 09/28/21 12:59 Last Admin: 08/29/21 13:32 Dose: 2.5 mg Documented By: CHANELLE Axitinib (Axitinib) 1 each PO BID@0500,1700 [facility] Stop: 09/22/21 17:14 Last Admin: 08/29/21 04:52 Dose: Not Given Documented By: Admin: 08/28/21 16:58 Dose: Not Given Documented By: Admin: 08/28/21 05:07 Dose: 1 each Documented By: EDWIGE Co-signed By: NALNII Admin: 08/27/21 17:30 Dose: 1 each Documented By: TAMMY Co-signed By: BEENA Admin: 08/27/21 05:42 Dose: 1 each Documented By: DOYLE Co-signed By: EDWIGE Admin: 08/26/21 17:46 Dose: 1 each Documented By: TAMMY Co-signed By: [id number] Admin: 08/26/21 04:08 Dose: 1 each Documented By: ELVIS Co-signed By: Admin: 08/25/21 17:18 Dose: 1 each Documented By: NILA Co-signed By: CARMEN Admin: 08/25/21 06:16 Dose: 1 each Documented By: ELVIS Co-signed By: MARNI Admin: 08/24/21 17:10 Dose: 1 each Documented By: NILA Co-signed By: DAMENO Admin: 08/24/21 07:56 Dose: 1 each Documented By: NILA Co-signed By: DESEAN Admin: 08/24/21 05:07 Dose: Not Given Documented By: Admin: 08/23/21 17:36 Dose: 1 each Documented By: NILA Co-signed By: RICHA Donepezil HCl (Donepezil Hcl 10 Mg Tab) 10 mg PO HS [facility] Stop: 09/21/21 20:59 Last Admin: 08/22/21 23:09 Dose: Not Given Documented By: ESG Enoxaparin Sodium (Enoxaparin Inj 40 Mg/0.4 Ml Syr) 40 mg SQ Q24H [facility] Stop: 09/27/21 08:29 Last Admin: 08/29/21 08:11 Dose: Not Given Documented By: Admin: 08/28/21 08:48 Dose: 40 mg Documented By: RICHA Haloperidol Lactate (Haloperidol Lactate 5 Mg/Ml 1 Ml Vial) 2.5 mg IM Q6H PRN PRN Reason: severe agitation Stop: 09/23/21 13:48 Last Admin: 08/26/21 15:19 Dose: 2.5 mg Documented By: [facility] Sodium Chloride (Nss) 500 mls @ 75 mls/hr IV .Q6H40M [facility] Stop: 09/27/21 15:59 Last Admin: 08/29/21 12:53 Dose: 75 mls/hr Documented By: Infusion: 08/29/21 12:53 Dose: 75 mls/hr Documented By: Admin: 08/29/21 06:59 Dose: 75 mls/hr Documented By: Infusion: 08/29/21 06:43 Dose: 75 mls/hr Documented By: Admin: 08/29/21 00:02 Dose: 75 mls/hr Documented By: Infusion: 08/28/21 22:59 Dose: 75 mls/hr Documented By: Admin: 08/28/21 16:18 Dose: 75 mls/hr Documented By: RICHA Dexamethasone 4 mg/ Syringe 1 mls @ 1 mls/min IV Q6 [facility] Stop: 09/28/21 00:00 Last Admin: 08/29/21 13:15 Dose: 1 mls/min Documented By: Admin: 08/29/21 06:25 Dose: 1 mls/min Documented By: Admin: 08/29/21 00:02 Dose: 1 mls/min Documented By: RODO Pantoprazole Sodium 40 mg/ (Syringe) 10 mls @ 5 mls/min IV BID [facility] Stop: 09/28/21 09:02 Last Admin: 08/29/21 10:32 Dose: 5 mls/min Documented By: CHRIS Levothyroxine Sodium (Levothyroxine Sodium 25 Mcg Tablet) 12.5 mcg PO Q2D@0630 [facility] Stop: 09/22/21 06:29 Last Admin: 08/29/21 06:26 Dose: Not Given Documented By: Admin: 08/27/21 05:43 Dose: 12.5 mcg Documented By: Admin: 08/25/21 06:13 Dose: 12.5 mcg Documented By: Admin: 08/23/21 06:36 Dose: Not Given Documented By: ESG Lidocaine (Lidocaine 5% 1 Patch) 2 patch TD QAM [facility] Stop: 09/25/21 11:14 Last Admin: 08/29/21 08:11 Dose: Not Given Documented By: Admin: 08/28/21 08:43 Dose: 2 patch Documented By: Admin: 08/27/21 08:44 Dose: 2 patch Documented By: Admin: 08/26/21 12:29 Dose: 2 patch Documented By: TAMMY Miscellaneous (Remove Lidoderm Patch) 2 each N/A DAILY@2100 [facility] Stop: 09/25/21 20:59 Last Admin: 08/28/21 18:39 Dose: 2 each Documented By: Admin: 08/27/21 21:01 Dose: 2 each Documented By: Admin: 08/26/21 20:49 Dose: 2 each Documented By: DOYLE Ondansetron HCl (Ondansetron Inj 2 Mg/Ml 2 Ml Vial) 4 mg IV Q4H PRN PRN Reason: Nausea Stop: 09/24/21 23:20 Last Admin: 08/28/21 20:47 Dose: 4 mg Documented By: Admin: 08/25/21 23:35 Dose: 4 mg Documented By: ELVIS Senna/Docusate Sodium (Docusate Sodium/Senna 50/8.6mg Tab) [facility] [place]: 09/23/21 09:59 Last Admin: 08/29/21 08:11 Dose: Not Given Documented By: Admin: 08/28/21 08:41 Dose: 1 tab Documented By: Admin: 08/27/21 08:43 Dose: 1 tab Documented By: Admin: 08/26/21 11:48 Dose: Not Given Documented By: Admin: 08/25/21 09:34 Dose: Not Given Documented By: Admin: 08/24/21 10:32 Dose: 1 tab Documented By: NILA Simvastatin (Simvastatin 20 Mg Tab) 20 mg PO HS [facility] Stop: 09/21/21 20:59 Last Admin: 08/22/21 23:10 Dose: Not Given Documented By: ESG Discontinued Medications Acetaminophen (Acetaminophen 325 Mg Tab) 650 mg PO Q8 [facility] Stop: 09/25/21 19:59 Last Admin: 08/28/21 14:29 Dose: Not Given Documented By: Admin: 08/28/21 05:07 Dose: 650 mg Documented By: Admin: 08/27/21 21:00 Dose: 650 mg Documented By: Admin: 08/27/21 08:43 Dose: 650 mg Documented By: Admin: 08/27/21 05:44 Dose: 650 mg Documented By: Admin: 08/26/21 20:33 Dose: 650 mg Documented By: DOYLE Amlodipine Besylate (Amlodipine Besylate 5 Mg Tab) 2.5 mg PO NOW ONE Stop: 08/25/21 15:16 Last Admin: 08/25/21 15:19 Dose: 2.5 mg Documented By: NILA Amoxicillin (Amoxicillin Susp 400 Mg/5 Ml) 500 mg PO BID [facility] Stop: 08/29/21 09:29 Last Admin: 08/27/21 20:59 Dose: 500 mg Documented By: Admin: 08/27/21 08:49 Dose: 500 mg Documented By: Admin: 08/26/21 20:48 Dose: 500 mg Documented By: Admin: 08/26/21 10:20 Dose: 500 mg Documented By: Admin: 08/25/21 20:00 Dose: Not Given Documented By: Admin: 08/25/21 09:32 Dose: 500 mg Documented By: Admin: 08/24/21 20:22 Dose: 500 mg Documented By: Admin: 08/24/21 10:30 Dose: 500 mg Documented By: NILA Amoxicillin (Amoxicillin Susp 400 Mg/5 Ml) 500 mg PO TID [facility] Stop: 09/02/21 08:59 Last Admin: 08/29/21 08:11 Dose: Not Given Documented By: Admin: 08/28/21 20:44 Dose: Not Given Documented By: Admin: 08/28/21 14:29 Dose: Not Given Documented By: Admin: 08/28/21 08:48 Dose: 500 mg Documented By: RICHA Atenolol (Atenolol 50 Mg Tablet) 50 mg PO BID [facility] Stop: 09/21/21 20:59 Last Admin: 08/29/21 08:11 Dose: Not Given Documented By: Admin: 08/28/21 20:44 Dose: Not Given Documented By: Admin: 08/28/21 08:41 Dose: 50 mg Documented By: Admin: 08/27/21 21:00 Dose: 50 mg Documented By: Admin: 08/27/21 08:43 Dose: 50 mg Documented By: Admin: 08/26/21 20:34 Dose: 50 mg Documented By: Admin: 08/26/21 08:58 Dose: 50 mg Documented By: Admin: 08/25/21 20:01 Dose: Not Given Documented By: Admin: 08/25/21 09:34 Dose: 50 mg Documented By: Admin: 08/24/21 20:01 Dose: 50 mg Documented By: Admin: 08/23/21 17:12 Dose: Not Given Documented By: Admin: 08/22/21 23:09 Dose: Not Given Documented By: GABE Axitinib (Axitinib) 1 each PO BID@0600,1800 [facility] Stop: 09/21/21 17:59 Last Admin: 08/23/21 06:36 Dose: Not Given Documented By: Admin: 08/22/21 23:09 Dose: Not Given Documented By: GABE Celecoxib (Celebrex 200 Mg Cap) 200 mg PO ONE ONE Stop: 08/27/21 14:39 Last Admin: 08/27/21 15:53 Dose: 200 mg Documented By: TAMMY Dexamethasone (Dexamethasone 4 Mg Tab) 4 mg PO NOW ONE Stop: 08/22/21 12:12 Last Admin: 08/22/21 12:50 Dose: Not Given Documented By: LUCIAN Dexamethasone (Dexamethasone Sod Inj 4 Mg/Ml Vial) 4 mg IV NOW STA Stop: 08/22/21 12:37 Last Admin: 08/22/21 12:50 Dose: 4 mg Documented By: LUICAN Dexamethasone (Dexamethasone 4 Mg Tab) 4 mg PO TID [facility] Stop: 09/23/21 09:24 Last Admin: 08/28/21 14:29 Dose: Not Given Documented By: Admin: 08/28/21 08:41 Dose: 4 mg Documented By: Admin: 08/27/21 21:00 Dose: 4 mg Documented By: Admin: 08/27/21 15:53 Dose: 4 mg Documented By: Admin: 08/27/21 08:42 Dose: 4 mg Documented By: Admin: 08/26/21 20:36 Dose: 4 mg Documented By: Admin: 08/26/21 17:47 Dose: 4 mg Documented By: [facility] Admin: 08/26/21 17:25 Dose: Not Given Documented By: [facility] Admin: 08/26/21 12:29 Dose: 4 mg Documented By: Admin: 08/25/21 20:01 Dose: Not Given Documented By: Admin: 08/25/21 17:27 Dose: Not Given Documented By: Admin: 08/25/21 09:34 Dose: 4 mg Documented By: Admin: 08/24/21 20:02 Dose: 4 mg Documented By: Admin: 08/24/21 14:23 Dose: 4 mg Documented By: Admin: 08/24/21 10:32 Dose: 4 mg Documented By: NILA Famotidine (Famotidine 10 Mg Tablet) 10 mg PO BID [facility] Stop: 09/21/21 20:59 Last Admin: 08/29/21 08:11 Dose: Not Given Documented By: Admin: 08/28/21 20:44 Dose: Not Given Documented By: Admin: 08/28/21 08:42 Dose: 10 mg Documented By: Admin: 08/27/21 20:59 Dose: 10 mg Documented By: Admin: 08/27/21 08:42 Dose: 10 mg Documented By: [facility] Admin: 08/26/21 20:35 Dose: 10 mg Documented By: Admin: 08/26/21 08:58 Dose: 10 mg Documented By: [facility] Admin: 08/25/21 20:01 Dose: Not Given Documented By: Admin: 08/25/21 09:35 Dose: 10 mg Documented By: Admin: 08/24/21 20:02 Dose: 10 mg Documented By: Admin: 08/23/21 17:12 Dose: Not Given Documented By: Admin: 08/22/21 23:10 Dose: Not Given Documented By: ESG Haloperidol Lactate (Haloperidol Lactate 5 Mg/Ml 1 Ml Vial) 2.5 mg IM NOW STA Stop: 08/24/21 02:33 Last Admin: 08/24/21 02:54 Dose: 2.5 mg Documented By: BLM Haloperidol Lactate (Haloperidol Lactate 5 Mg/Ml 1 Ml Vial) 2.5 mg IM NOW STA Stop: 08/24/21 03:49 Last Admin: 08/24/21 03:55 Dose: 2.5 mg Documented By: RYLAN Heparin Sodium (Porcine) (Heparin Sod 5,000 Unit/0.5 Ml Vial) 5,000 units SQ Q12 [facility] Stop: 09/22/21 08:59 Last Admin: 08/27/21 21:00 Dose: 5,000 units Documented By: Admin: 08/27/21 08:44 Dose: 5,000 units Documented By: Admin: 08/26/21 20:36 Dose: 5,000 units Documented By: Admin: 08/26/21 08:57 Dose: 5,000 units Documented By: Admin: 08/25/21 19:30 Dose: 5,000 units Documented By: Admin: 08/25/21 09:38 Dose: 5,000 units Documented By: Admin: 08/24/21 20:02 Dose: 5,000 units Documented By: Admin: 08/24/21 12:48 Dose: 5,000 units Documented By: Admin: 08/23/21 20:08 Dose: 5,000 units Documented By: Admin: 08/23/21 10:36 Dose: 5,000 units Documented By: NILA Hydromorphone HCl (Hydromorphone Inj 0.5 Mg/0.5 Ml Syr) 0.25 mg IV NOW STA Stop: 08/28/21 20:19 Last Admin: 08/28/21 20:42 Dose: 0.25 mg Documented By: MIRIAM Sodium Chloride (Nss) 500 mls @ 125 mls/hr IV .Q4H [facility] Stop: 09/21/21 11:59 Last Infusion: 08/22/21 23:59 Dose: 0 mls/hr Documented By: Infusion: 08/22/21 23:30 Dose: 0 mls/hr Documented By: Admin: 08/22/21 23:20 Dose: Not Given Documented By: Admin: 08/22/21 19:51 Dose: 125 mls/hr Documented By: Infusion: 08/22/21 16:50 Dose: 0 mls/hr Documented By: Admin: 08/22/21 12:50 Dose: 125 mls/hr Documented By: LUCIAN Lorazepam 0.5 mg/ Syringe 0.5 mls @ 2 mls/min IV Q6H PRN PRN Reason: Anxiety Stop: 09/21/21 16:35 Last Admin: 08/23/21 12:23 Dose: 2 mls/min Documented By: Admin: 08/22/21 16:55 Dose: 2 mls/min Documented By: LUCIAN Dexamethasone 4 mg/ Syringe 1 mls @ 1 mls/min IV Q6H [facility] Stop: 09/21/21 17:59 Last Admin: 08/24/21 05:51 Dose: Not Given Documented By: Admin: 08/23/21 23:26 Dose: 1 mls/min Documented By: Admin: 08/23/21 17:43 Dose: 1 mls/min Documented By: Admin: 08/23/21 12:23 Dose: 1 mls/min Documented By: Admin: 08/23/21 06:37 Dose: 1 mls/min Documented By: Admin: 08/23/21 00:26 Dose: 1 mls/min Documented By: Admin: 08/22/21 19:51 Dose: 1 mls/min Documented By: TYRELL Sodium Chloride (Nss 1000ml) 1,000 mls @ 125 mls/hr IV .Q8H [facility] Stop: 09/21/21 23:29 Last Infusion: 08/23/21 21:49 Dose: 0 mls/hr Documented By: Admin: 08/23/21 07:34 Dose: 125 mls/hr Documented By: Infusion: 08/23/21 07:30 Dose: 125 mls/hr Documented By: Admin: 08/22/21 23:30 Dose: 125 mls/hr Documented By: GABE Famotidine 20 mg/ Syringe 5 mls @ 2.5 mls/min IV BID [facility] Stop: 09/22/21 10:14 Last Admin: 08/24/21 16:39 Dose: Not Given Documented By: Admin: 08/23/21 20:11 Dose: 2.5 mls/min Documented By: Admin: 08/23/21 10:15 Dose: 2.5 mls/min Documented By: NILA Pantoprazole Sodium 40 mg/ (Syringe) 10 mls @ 5 mls/min IV DAILY@1100 [facility] Stop: 09/22/21 10:59 Last Admin: 08/23/21 10:15 Dose: 5 mls/min Documented By: NILA Ampicillin Sodium 1,000 mg/ (Sodium Chloride) 50 mls @ 100 mls/hr IV Q6H [facility] Stop: 09/02/21 10:14 Last Admin: 08/24/21 05:50 Dose: Not Given Documented By: Infusion: 08/24/21 00:18 Dose: 0 mls/hr Documented By: Admin: 08/23/21 23:25 Dose: 100 mls/hr Documented By: Infusion: 08/23/21 18:33 Dose: 0 mls/hr Documented By: Admin: 08/23/21 17:51 Dose: 100 mls/hr Documented By: Infusion: 08/23/21 13:58 Dose: 0 mls/hr Documented By: Admin: 08/23/21 12:23 Dose: 100 mls/hr Documented By: NILA Dextrose/Lactated Ringer's (D5w And Lactated Ringers) 1,000 mls @ 80 mls/hr IV .[id number] [facility] Stop: 09/22/21 14:14 Last Infusion: 08/24/21 16:42 Dose: 0 mls/hr Documented By: Admin: 08/24/21 16:39 Dose: Not Given Documented By: Infusion: 08/24/21 02:30 Dose: 0 mls/hr Documented By: Admin: 08/23/21 14:59 Dose: 80 mls/hr Documented By: NILA Magnesium Sulfate/Dextrose (Magnesium Sulfate / D5w) 1 gm in 100 mls @ 50 mls/hr IV ONE ONE Stop: 08/24/21 10:59 Last Admin: 08/24/21 16:40 Dose: Not Given Documented By: NILA Potassium Phosphate 15 mmol/ (Sodium Chloride) 255 mls @ 88 mls/hr IV ONE ONE Stop: 08/24/21 11:53 Last Admin: 08/24/21 16:40 Dose: Not Given Documented By: NILA Acetaminophen (Ofirmev) 1,000 mg in 100 mls @ 400 mls/hr IV ONE ONE Stop: 08/26/21 09:59 Last Infusion: 08/26/21 10:34 Dose: 0 mls/hr Documented By: [facility] Admin: 08/26/21 10:19 Dose: 400 mls/hr Documented By: TAMMY Albumin Human (Albumin 5%) 250 mls @ 50 mls/hr IV ONE ONE Stop: 08/29/21 14:02 Last Infusion: 08/29/21 15:43 Dose: 0 mls/hr Documented By: Admin: 08/29/21 10:33 Dose: 50 mls/hr Documented By: CHRIS Vancomycin HCl 1,000 mg/ (Sodium Chloride) 520 mls @ 200 mls/hr IV NOW ONE Stop: 08/29/21 11:38 Last Infusion: 08/29/21 13:28 Dose: 0 mls/hr Documented By: Admin: 08/29/21 10:31 Dose: 200 mls/hr Documented By: CHRIS Cefepime HCl 2,000 mg/ Syringe 20 mls @ 5 mls/min IV Q8H [facility]; Protocol Stop: 08/31/21 09:02 Last Admin: 08/29/21 10:31 Dose: 5 mls/min Documented By: CHRIS Albumin Human (Albumin 5%) 250 mls @ 50 mls/hr IV ONE ONE Stop: 08/29/21 15:44 Last Admin: 08/29/21 12:52 Dose: Not Given Documented By: CHRIS Ioversol (Optiray 320 125ml) 120 ml IV ONCE ONE Stop: 08/29/21 12:17 Last Admin: 08/29/21 12:17 Dose: 120 ml Documented By: GOMEZ Lisinopril (Lisinopril 20 Mg Tab) 20 mg PO QAM [facility] Stop: 09/23/21 10:29 Last Admin: 08/29/21 08:12 Dose: Not Given Documented By: Admin: 08/28/21 08:41 Dose: 20 mg Documented By: Admin: 08/27/21 08:43 Dose: 20 mg Documented By: Admin: 08/26/21 08:58 Dose: 20 mg Documented By: Admin: 08/25/21 09:34 Dose: 20 mg Documented By: Admin: 08/24/21 12:41 Dose: 20 mg Documented By: NILA Lorazepam (Lorazepam 2 Mg/1 Ml Vial) 0.5 mg IV [facility]; Protocol Stop: 08/22/21 12:37 Last Admin: 08/22/21 12:50 Dose: 0.5 mg Documented By: LUCIAN Lorazepam (Lorazepam 2 Mg/1 Ml Vial) Confirm Administered Dose 1 mg .ROUTE .STK- MED ONE Stop: 08/22/21 16:53 Last Admin: 08/22/21 16:55 Dose: Not Given Documented By: MNE Magnesium Oxide (Magnesium Oxide 400 Mg Tab) 400 mg PO ONE ONE Stop: 08/24/21 09:51 Last Admin: 08/24/21 10:37 Dose: 400 mg Documented By: NILA Mirtazapine (Mirtazapine Tab 15 Mg Tab) 15 mg PO HS [facility] Stop: 09/21/21 20:59 Last Admin: 08/28/21 20:44 Dose: Not Given Documented By: Admin: 08/27/21 21:00 Dose: 15 mg Documented By: Admin: 08/26/21 20:35 Dose: 15 mg Documented By: Admin: 08/25/21 20:01 Dose: Not Given Documented By: Admin: 08/24/21 20:03 Dose: 15 mg Documented By: Admin: 08/22/21 23:10 Dose: Not Given Documented By: ESG Morphine Sulfate (Morphine Sulfate 10 Mg/0.5 Ml Udp) 10 mg PO NOW STA Stop: 08/24/21 04:47 Last Admin: 08/24/21 04:58 Dose: 10 mg Documented By: ELVIS Morphine Sulfate (Morphine Sulfate 5 Mg/0.25 Ml Udp) 5 mg PO NOW STA Stop: 08/24/21 04:55 Last Admin: 08/24/21 05:04 Dose: 5 mg Documented By: ELVIS Pantoprazole Sodium (Pantoprazole 40 Mg Tab) 40 mg PO BID [facility] Stop: 09/21/21 20:59 Last Admin: 08/29/21 08:12 Dose: Not Given Documented By: Admin: 08/28/21 20:44 Dose: Not Given Documented By: Admin: 08/28/21 08:41 Dose: 40 mg Documented By: Admin: 08/27/21 20:59 Dose: 40 mg Documented By: Admin: 08/27/21 08:43 Dose: 40 mg Documented By: Admin: 08/26/21 20:34 Dose: 40 mg Documented By: Admin: 08/26/21 11:50 Dose: Not Given Documented By: VGTran Admin: 08/25/21 20:01 Dose: Not Given Documented By: Admin: 08/25/21 09:35 Dose: 40 mg Documented By: Admin: 08/24/21 20:01 Dose: 40 mg Documented By: Admin: 08/23/21 17:12 Dose: Not Given Documented By: Admin: 08/22/21 23:10 Dose: Not Given Documented By: ESG Potassium Phosphate (Pot Phosphate Monobasic W/ Sod Tab) 2 tab PO QID [facility] Stop: 08/24/21 21:01 Last Admin: 08/24/21 20:02 Dose: 2 tab Documented By: Admin: 08/24/21 17:11 Dose: 2 tab Documented By: Admin: 08/24/21 12:42 Dose: 2 tab Documented By: NILA Tamsulosin HCl (Tamsulosin Hcl 0.4 Mg Cap) 0.4 mg PO HS [facility] Stop: 09/21/21 20:59 Last Admin: 08/22/21 23:10 Dose: Not Given Documented By: ESG Description This is a 21 electrode EEG with a single channel dedicated to limited EKG. The electrodes were placed in accordance with the International 10-20 system. Interpretation This study was very difficult to interpret due to considerable artifact intermittently throughout the recording because of her head movements The predominant background activity consists of and irregular 6 hertz activity of up to 60 mV in amplitude,seen symmetrically distributed over the posterior head regions bilaterally, spreading anteriorly. there was no attenuation of this activity with eye opening or alerting procedures Photic stimulation was performed and elicited no change in the background activity, but abnormal responses were seen as described below. Hyperventilation was not performed. A considerable amount of muscle and movement artifact activity contaminated the recording inner interpretation multiple times throughout the recording. I could see the bed shaking and her head moving frequently. The meter/relay technician attempted to reattach and improve lead contact, but it did not seem to help overall. Throughout the recording ( before, during, and after photic stimulation ) there were frequent generalized sharp waves, that were difficult to correlate with any clinical accompaniment because of the patient's head and body movement. I could not identify any spike in wave activity and there was no focal slowing ( slowing was generalized) I could not identify any shift to drowsiness or sleep. In summary, this EEG was Abnormal and showed generalized slowing of the background activity of a [id number] nature. The frequent generalized sharp waves were likely artifact but I cannot exclude potentially epileptogenic activity. Clinical Correlation The generalized slowing likely correlates with a [id number] encephalopathy, which could be due to a wide variety of causes. Sharp waves could be potentially epileptogenic [facility] EEG Procedure Codes Indication for Procedure (1) Acute encephalopathy: (2) Acute respiratory failure with hypoxia: (3) Brain metastasis: Neurology Neurology: 82089 EEG include record awake & drowsy
[2021-08-29] MEDS: VANCOMYCIN HCL 750 MG in SODIUM CHLORIDE 0.9% 250 ML IV SCH (16:50)
[2021-08-29] MEDS: levETIRAcetam 500 MG in 0.9 % SODIUM CHLORIDE 100 ML IV SCH (17:19)
[2021-08-29] MEDS: SODIUM CHLOR 7% 4 ML NEB NEB SCH (19:43)
[2021-08-29] MEDS: SIMVASTATIN 20 MG TAB PO SCH (21:43)
[2021-08-29] MEDS: CEFEPIME 2,000 MG in SYRINGE 0 ML IV SCH (21:48)
[2021-08-30] MEDS: dexAMETHasone 4 MG in SYRINGE 0 ML IV SCH ×5 (00:38→23:55)
[2021-08-30 05:26] LABS: BUN Creatinine Ratio 27.5 (10-20); Calcium 8.1 mg/dl (8.5-10.1); Est GFR (African American) 101.5 ml/min; Est GFR (Non-African American) 87.6 ml/min; Magnesium 1.7 mg/dl (1.7-2.4); Phosphorus 2.7 mg/dl (2.5-4.9); Potassium 4.2 mmol/L (3.5-5.1)
[2021-08-30 05:46] LABS: Hematocrit (blood only) 36.7 % (34.1-44.9); Hemoglobin 12.2 g/dl (12.0-16.0); Mean Corpuscular Hemoglobin 27.9 pg (25.0-34.0); Mean Corpuscular Hgb Conc 33.2 g/dL (32.0-36.0); Mean Corpuscular Volume 83.8 fL (80.0-100.0); Mean Platelet Volume 9.6 fL (9.4-12.3); Platelet Count 95 K/uL (130-400); RDW Coefficient of Variation 14.5 % (11.5-14.5); RDW Standard Deviation 42.9 fL (36.4-46.3); Red Blood Count 4.38 M/uL (3.93-5.22); White Blood Count 8.36 K/ul (4.8-10.8)
[2021-08-30 05:48] LABS: Basophils # (auto) 0.01 K/uL (0-0.2); Basophils % (auto) 0.1 %; Immature Granulocytes # (auto) 0.03 K/uL (0.00-0.02); Immature Granulocytes % (auto) 0.4 %; Lymphocytes # (auto) 0.29 K/uL (1.2-3.4); Lymphocytes % (auto) 3.5 %; Monocytes # (auto) 0.31 K/uL (0.24-0.82); Monocytes % (auto) 3.7 %; Neutrophils # (auto) 7.72 K/uL (1.4-6.5); Neutrophils % (auto) 92.3 %; Platelet Estimate Decreased (Normal)
[2021-08-30] MEDS: SODIUM CHLORIDE 0.9% 500 ML IV SCH ×2 (06:20→09:07)
[2021-08-30] MEDS: VANCOMYCIN HCL 750 MG in SODIUM CHLORIDE 0.9% 250 ML IV SCH (06:47)
[2021-08-30] MEDS: levETIRAcetam 500 MG in 0.9 % SODIUM CHLORIDE 100 ML IV SCH ×2 (06:48→17:19)
[2021-08-30] MEDS: SODIUM CHLOR 7% 4 ML NEB NEB SCH ×2 (07:42→20:16)
[2021-08-30] MEDS: ALBUTEROL 0.083% NEBU SOLN 3 ML VIAL NEB SCH ×3 (07:42→20:16)
[2021-08-30] MEDS: DOCUSATE SODIUM/SENNA 50/8.6MG TAB PO SCH (09:06)
[2021-08-30] MEDS: LIDOCAINE 5% 1 PATCH TD SCH (09:06)
[2021-08-30] MEDS: CEFEPIME 2,000 MG in SYRINGE 0 ML IV SCH (09:06)
[2021-08-30] MEDS: ENOXAPARIN INJ 40 MG/0.4 ML SYR SQ SCH (09:07)
[2021-08-30] MEDS: PANTOprazole 40 MG in SYRINGE 0 ML IV SCH ×2 (09:09→20:22)
--- NOTE | 2021-08-30 09:10 | Critical Care Progress Note ---
Date of Service August 30, 2021 Assessment & Plan (1) Acute respiratory failure with hypoxia: (2) Brain metastasis: (3) Acute encephalopathy: (4) Aspiration pneumonia: Plan 70-year-old female with a history of renal cell carcinoma with metastases to her brain presenting to the ICU due to worsening encephalopathy and hypoxemia. Neurologic: Avoid sedating agents unless the patient goes to comfort care route or hospice route. MRI of the brain and CT head consistent with a history of metastatic renal cell carcinoma. Palliative care and oncology on board. Prognosis overall is very poor. EEG nonspecific. Keppra started yesterday. Patient's mental status remains the same. She does have a history of dementia as well. Pulmonary: Hypoxemia significantly improved with airway clearance therapy including CoughAssist twice daily and vest percussive therapy every 4 hours. Continue hypertonic saline. CT chest from yesterday reviewed without evidence of PE, but large right-sided pneumonia consistent with aspiration. Maintain the patient NPO. Cardiovascular: No significant issues at present. Mild hypotension has resolved. Gastrointestinal: Maintain n.p.o. status at this time. Renal: Creatinine within normal limits. Replace electrolytes per protocol. Infectious disease: Patient with aspiration pneumonia. Continue with Zosyn. Obtain sputum culture if possible. De-escalate depending on clinical progression. MRSA screen negative. Will discontinue vancomycin. Urine culture growing gram-negative bacilli. Blood cultures pending. Hematologic: History of renal cell carcinoma with metastatic disease to her brain. Prognosis poor as noted above. We will hold chemotherapy agents while inpatient given the risk of immunosuppression in the context of sepsis and increased risk of blood clot. Endocrine: TSH very low. Free T4 normal. VTE prophylaxis: Lovenox CODE STATUS: Full code Family at bedside: Not available at this time Disposition: Okay to downgrade out of the ICU. Discussed with hospitalist and bedside nurse. Admission and Anticipated Discharge Date Admission Date: August 22, 2021 Subjective Patient seen and examined. Patient is only oriented to herself. Oxygen requirements have been minimal and she is currently saturating well on room air. Review of Systems Review of Systems: Unobtainable due to cognitive status Physical Exam Physical Exam: Constitutional: Frail and thin appearing female moderate distress. Appears confused. Eyes: Pupils are equal round and reactive to light. Conjunctivae are normal. Anicteric sclera. Ears nose, mouth and throat: No obvious deformities. Neck: Trachea is midline. Visual inspection is normal. Respiratory: Diminished at the bases bilaterally. Cardiovascular: Regular rate and rhythm. No murmurs. No edema. Gastrointestinal: Normal bowel sounds, soft, nontender and nondistended. No hepatosplenomegaly noted. Musculoskeletal: No cyanosis. Patient is able to move all extremities. Diffusely weak. Skin: No rashes, warm dry and intact. Neurologic: No obvious focal neurological deficits seen. Psychiatric: Only oriented to self. Results & Data Results & Data ([facility]) Vital Signs (Past 12 Hours) Vital Signs Pulse Pulse Resp BP Pulse Ox O2 Del Method O2 Flow Rate 08/30/21 07:42 Oxymask 8 08/30/21 07:41 73 20 100 Oxymask 7 08/30/21 06:00 53 L 16 99 08/30/21 06:00 137/66 08/30/21 05:30 63 16 96 08/30/21 05:30 131/64 08/30/21 05:00 82 17 95 08/30/21 05:00 121/69 08/30/21 04:30 77 21 99 08/30/21 04:30 125/94 08/30/21 04:00 64 17 100 08/30/21 04:00 138/74 08/30/21 03:30 78 22 100 08/30/21 03:30 146/78 H 08/30/21 03:01 61 14 100 08/30/21 03:01 137/70 08/30/21 03:00 59 L 14 100 08/30/21 02:31 79 20 98 08/30/21 02:31 124/74 08/30/21 02:30 86 19 97 08/30/21 02:00 59 L 17 100 08/30/21 02:00 138/69 08/30/21 01:30 73 16 99 08/30/21 01:30 116/68 08/30/21 01:01 68 15 99 08/30/21 01:01 124/66 08/30/21 01:00 69 16 99 08/30/21 00:30 132/68 08/30/21 00:30 63 14 100 08/30/21 00:00 59 L 13 100 08/30/21 00:00 115/72 08/29/21 23:30 72 19 98 08/29/21 23:30 132/75 08/29/21 23:00 69 19 96 08/29/21 23:00 134/74 08/29/21 22:30 76 22 78 L 08/29/21 22:00 85 23 99 08/29/21 22:00 133/67 08/29/21 21:30 74 21 99 08/29/21 21:30 129/85 Coding Level of Care Code 36955 Subseq Hosp Care Lvl 3 Diagnoses Acute respiratory failure with hypoxia J96.01 Brain metastasis C79.31 Acute encephalopathy G93.40 Aspiration pneumonia J69.0
--- NOTE | 2021-08-30 09:26 | Electrocardiogram Report ---
Test Reason : Blood Pressure : / mmHG Vent. Rate : 071 BPM Atrial Rate : 071 BPM P-R Int : 168 ms QRS Dur : 080 ms QT Int : 410 ms P-R-T Axes : 056 -24 127 degrees QTc Int : 445 ms Normal sinus rhythm Abnormal ECG When compared with ECG of 22-AUG-2021 11:21, ST and T changes are worse in the Lateral leads Confirmed by Alfredo Vazquez ([id number]) on 08/30/2021 9:25:42 AM Referred By: REFERRED SELF Confirmed By:Alfredo Vazquez
[2021-08-30] MEDS: D5W AND NSS 1,000 ML IV SCH ×2 (10:57→23:51)
[2021-08-30] MEDS: PIPERACILLIN/TAZOBACTAM 3.375 GM in DEXTROSE 5% 100 ML IV SCH ×2 (11:46→20:22)
[2021-08-30] MEDS ORDERED: CARBOHYDRATES FOR HYPOGLYCEMIA PO PRN (16:14)
[2021-08-30] MEDS ORDERED: DEXTROSE 50% 50 ML SYRINGE IV PRN (16:14)
[2021-08-30] MEDS ORDERED: GLUCOSE 40% GEL 15 GM TUBE PO PRN (16:14)
[2021-08-30] MEDS ORDERED: GLUCAGON FOR INJ 1 MG VIAL SQ PRN (16:14)
[2021-08-30] MEDS ORDERED: GLUCOSE 10 TAB/TUBE PO PRN (16:14)
--- NOTE | 2021-08-30 16:15 | Hospitalist Progress Note ---
Date of Service August 30, 2021 Assessment & Plan (1) AMS (altered mental status): Plan: Likely secondary to intracranial metastasis with possible superimposed radiation effect/edema -On IV steroids at higher dose per discussion with oncology; Some question of seizure activityKeppra initiated Follow Will consider MRI when more stabledo not expect will change management facilitator actively if (2) Respiratory failure: Plan: Acute hypoxic respiratory failureappears secondary to PNA, probable aspiration Switch to Zosyn, critical care medicine agrees (3) Aspiration pneumonia: Plan: Continue Zosyn, as above; n.p.o. at present, speech therapy note from yesterday noted but discussed with that at present n.p.o. status is recommended and appropriate and he concurred (4) Acute encephalopathy: Plan: Prior notes noted; while reasonable to avoid benzodiazepine and use Haldol as needed for agitation at present picture does not suggest toxic encephalopathy (5) UTI (urinary tract infection): Plan: Noted GNR in urine, Zosyn should cover; uncertain if true UTI versus asymptomatic catheter induced bacteriuria (6) Anorexia: Plan: Severe protein-calorie malnutrition At present n.p.o. due to aspiration risk; depending on course and goals could need tube feeding if they desire but for the moment changed to glucose containing fluids to provide some calories (7) Constipation: Plan: Continue bowel regimen (8) Renal cell cancer: Plan: RCC with mets to brain and extensive LN mets Continue Axitinib PO BID- brought this medication from home. Rad/Onc discharge note noted f/u with Dr. Shipley Med/Onc after discharge (9) Brain metastasis: Plan: Radiation completed, as above (10) Diabetes: Plan: Hemoglobin A1c 5.6% Added SSI while on glucose containing fluids and steroids, adjust range and dosing as appropriate (11) Hypertension: Plan: At present adjust/hold meds as appropriate (12) Hypothyroidism: Plan: TSH mildly low at 0.04 on 08/19 restart home levothyroxine 12.5mcg every other day and would consider lowering the dose further-follow as outpt (13) Dementia: Plan: Mild supportive care Plan N.p.o. at present Will provide updated addendum as appropriate brought up history of esophageal dilation and requesting GI consultwill consider in a.m. Admission and Anticipated Discharge Date Admission Date: August 22, 2021 Subjective Follow-up of altered mental status, hypoxic respiratory failureimproved oxygenation, still lethargic and essentially noncommunicative. Physical Exam Physical Exam: Constitutional and general: Lethargic, noncommunicative Head and face: No puffiness, atraumatic Neck: Supple, no JVD Musculoskeletal: No acute joint swelling, no bony abnormalities Skin/dermatologic/integument: No rash, no purpura Gastrointestinal/abdomen: Nondistended, soft, nonacute Cardiovascular: Heart rhythm regular, no rub, no murmur, no gallop Respiratory: Chest movements equal, mild use of accessory muscles, decreased breath sounds right base Extremities: No edema, no cyanosis Results & Data Results & Data ([facility]) Vital Signs (Past 12 Hours) Vital Signs Pulse Pulse Resp BP Pulse Ox Pulse Ox O2 Del Method 08/30/21 14:14 61 20 95 Room Air 08/30/21 13:00 61 19 96 08/30/21 12:30 58 L 18 95 08/30/21 12:00 58 L 19 95 08/30/21 12:00 135/71 08/30/21 11:30 54 L 15 95 08/30/21 11:00 70 20 96 08/30/21 11:00 136/75 08/30/21 10:30 71 21 95 08/30/21 10:01 57 L 16 94 08/30/21 10:01 123/64 08/30/21 10:00 57 L 16 95 08/30/21 09:30 59 L 14 93 08/30/21 09:00 65 20 97 08/30/21 09:00 139/63 08/30/21 08:30 65 20 98 08/30/21 08:00 72 20 98 08/30/21 08:00 128/65 08/30/21 07:33 134/80 08/30/21 07:33 76 19 98 08/30/21 07:31 76 20 100 08/30/21 07:30 83 23 100 08/30/21 07:00 67 16 100 08/30/21 07:00 144/79 H 08/30/21 06:31 154/68 H 08/30/21 06:31 59 L 15 100 08/30/21 06:30 56 L 15 100 08/30/21 09:03 98 08/30/21 07:42 Oxymask 08/30/21 07:41 73 20 100 Oxymask 08/30/21 06:00 53 L 16 99 08/30/21 06:00 137/66 08/30/21 05:30 63 16 96 08/30/21 05:30 131/64 08/30/21 05:00 82 17 95 08/30/21 05:00 121/69 08/30/21 04:30 77 21 99 08/30/21 04:30 125/94 O2 Del Method O2 Flow Rate 08/30/21 14:14 08/30/21 13:00 08/30/21 12:30 08/30/21 12:00 08/30/21 12:00 08/30/21 11:30 08/30/21 11:00 08/30/21 11:00 08/30/21 10:30 08/30/21 10:01 08/30/21 10:01 08/30/21 10:00 08/30/21 09:30 08/30/21 09:00 08/30/21 09:00 08/30/21 08:30 08/30/21 08:00 08/30/21 08:00 08/30/21 07:33 08/30/21 07:33 08/30/21 07:31 08/30/21 07:30 08/30/21 07:00 08/30/21 07:00 08/30/21 06:31 08/30/21 06:31 08/30/21 06:30 08/30/21 09:03 Room Air 08/30/21 07:42 8 08/30/21 07:41 7 08/30/21 06:00 08/30/21 06:00 08/30/21 05:30 08/30/21 05:30 08/30/21 05:00 08/30/21 05:00 08/30/21 04:30 08/30/21 04:30 Laboratory Results Laboratory Results - last 24 hr 08/30/21 08/30/21 04:35 04:35 WBC 8.36 RBC 4.38 Hgb 12.2 D Hct 36.7 MCV 83.8 MCH 27.9 MCHC 33.2 RDW Std Deviation 42.9 RDW Coeff of Dez 14.5 Plt Count 95 L MPV 9.6 Immature Gran % (Auto) 0.4 Neut % (Auto) 92.3 Lymph % (Auto) 3.5 [place] % (Auto) 3.7 Eos % (Auto) 0.0 Baso % (Auto) 0.1 Neut # (Auto) 7.72 H Lymph # (Auto) 0.29 L [place] # (Auto) 0.31 Eos # (Auto) 0.00 Baso # (Auto) 0.01 Immature Gran # (Auto) 0.03 H Platelet Estimate Decreased L Sodium 139 Potassium 4.2 Chloride 109 H Carbon Dioxide 21 Anion Gap 9 BUN 19 Creatinine 0.69 Est Cr Clr Drug Dosing 51.0 Est GFR ( Amer) 101.5 Est GFR (Non-Af Amer) 87.6 BUN/Creatinine Ratio 27.5 H Glucose 118 H Calcium 8.1 L Phosphorus 2.7 Magnesium 1.7 PG Care Time/CCT Total # of Minutes Spent Total Time Spent with Patient: Total time spent is greater than 50% in coordination of care (as documented) at patient's floor/unit and/or counseling patient: Coding Level of Care Code 77375 Subseq Hosp Care Lvl 2 Diagnoses AMS (altered mental status) R41.82 Respiratory failure J96.90 Aspiration pneumonia J69.0 Acute encephalopathy G93.40 UTI (urinary tract infection) N39.0 Anorexia R63.0 Constipation K59.00 Renal cell cancer C64.9 Brain metastasis C79.31 Diabetes E11.9 Hypertension I10 Hypothyroidism E03.9 Dementia F03.90
[2021-08-30] MEDS: AXITINIB PO SCH (17:11)
[2021-08-30] MEDS: INSULIN ASPART PER UNIT SC SCH ×2 (18:08→23:57)
[2021-08-30] MEDS: SIMVASTATIN 20 MG TAB PO SCH (20:23)
[2021-08-31] MEDS: PIPERACILLIN/TAZOBACTAM 3.375 GM in DEXTROSE 5% 100 ML IV SCH ×3 (03:26→21:33)
[2021-08-31] MEDS: AXITINIB PO SCH ×2 (05:03→13:17)
[2021-08-31] MEDS: levETIRAcetam 500 MG in 0.9 % SODIUM CHLORIDE 100 ML IV SCH ×2 (05:03→17:47)
[2021-08-31] MEDS: dexAMETHasone 4 MG in SYRINGE 0 ML IV SCH ×4 (05:03→23:22)
[2021-08-31] MEDS: LEVOTHYROXINE SODIUM 25 MCG TABLET PO SCH (05:04)
[2021-08-31] MEDS: INSULIN ASPART PER UNIT SC SCH ×3 (06:19→18:27)
[2021-08-31 07:08] LABS: Hematocrit (blood only) 33.4 % (34.1-44.9); Hemoglobin 11.4 g/dl (12.0-16.0); Mean Corpuscular Hemoglobin 27.2 pg (25.0-34.0); Mean Corpuscular Hgb Conc 34.1 g/dL (32.0-36.0); Mean Corpuscular Volume 79.7 fL (80.0-100.0); Mean Platelet Volume 9.5 fL (9.4-12.3); Platelet Count 96 K/uL (130-400); RDW Coefficient of Variation 14.1 % (11.5-14.5); RDW Standard Deviation 39.8 fL (36.4-46.3); Red Blood Count 4.19 M/uL (3.93-5.22); White Blood Count 7.45 K/ul (4.8-10.8)
[2021-08-31] MEDS: SODIUM CHLOR 7% 4 ML NEB NEB SCH ×2 (07:37→19:43)
[2021-08-31] MEDS: ALBUTEROL 0.083% NEBU SOLN 3 ML VIAL NEB SCH ×3 (07:37→19:42)
[2021-08-31 07:41] LABS: Echinocytes 1+; Immature Granulocytes # (auto) 0.03 K/uL (0.00-0.02); Immature Granulocytes % (auto) 0.4 %; Monocytes # (auto) 0.26 K/uL (0.24-0.82); Monocytes % (auto) 3.5 %; Neutrophils # (auto) 6.86 K/uL (1.4-6.5); Neutrophils % (auto) 92.1 %
[2021-08-31] MEDS: DOCUSATE SODIUM/SENNA 50/8.6MG TAB PO SCH (07:50)
[2021-08-31 07:53] LABS: Albumin Globulin Ratio 1.2 (0.9-2); Albumin Level 2.6 gm/dl (3.4-5.0); BUN Creatinine Ratio 20.4 (10-20); Bilirubin,Total 0.7 mg/dl (0.2-1.0); Calcium 8.2 mg/dl (8.5-10.1); Creatinine Clr Calc Pharmacy 65.2 ml/min; Est GFR (Non-African American) 94.9 ml/min; Globulin 2.1 gm/dl (2.5-4.0); Magnesium 1.6 mg/dl (1.7-2.4); Phosphorus 1.4 mg/dl (2.5-4.9); Potassium 3.3 mmol/L (3.5-5.1); Total Protein 4.7 gm/dl (6.0-8.3)
[2021-08-31] MEDS ORDERED: POTASSIUM PHOS 3 MMOL/1 ML INFUSION IV STA (07:59)
[2021-08-31] MEDS ORDERED: POTASSIUM PHOSPHATE 30 MMOL in SODIUM CHLORIDE 0.9% 500 ML IV ONE (08:15)
[2021-08-31] MEDS: MAGNESIUM SULFATE / D5W 1 GM/100 ML BAG IV SCH ×2 (08:22→10:44)
[2021-08-31] MEDS: LIDOCAINE 5% 1 PATCH TD SCH (08:22)
[2021-08-31] MEDS: PANTOprazole 40 MG in SYRINGE 0 ML IV SCH ×2 (08:22→21:30)
[2021-08-31] MEDS: ENOXAPARIN INJ 40 MG/0.4 ML SYR SQ SCH (08:22)
[2021-08-31] MEDS ORDERED: GADOBUTROL 65ML VIAL IV ONE (12:16)
--- NOTE | 2021-08-31 12:49 | Magnetic Resonance Report ---
Brain MRI WITH AND WITHOUT CONTRAST HISTORY: Brain metastasis, mental status changes TECHNIQUE: Multiplanar multisequence MRI of the brain was performed both before and after the intrave nous administration of contrast. COMPARISON STUDY: Brain MRI 07/28/2021. FINDINGS: The paranasal sinuses and mastoid air cells are clear. The major vascular flow-voids at the skull base are well-maintained. Evidence for prior bilateral lens replacement. Multiple scattered fo ci of T2 hyperintensity seen within the white matter of the supratentorial brain are again noted. Thi s is consistent with mild microvascular ischemic change. Interval increase in size in the peripheral enhancing lesion within the right side of the juan c. This currently measures 2.2 x 2.1 x 1.9 cm, previ ously measuring 2.0 x 1.6 x 1.5 cm. This demonstrates a small amount of internal hemorrhage. Vasogeni c edema surrounding this lesion is similar to the prior study. This results in mild to moderate mass effect along the roof of the fourth ventricle which is also slightly progressed. However, no hydrocep halus at this time. The additional punctate foci of enhancement within the right frontal lobe and lef t parietal lobe are no longer visualized. No new enhancing lesions within the brain. IMPRESSION: 1. Increase in size in the 2.2 x 2.1 x 1.9 cm pontine lesion which now demonstrates a small amount of internal hemorrhage. 2. This results in mild to moderate mass effect along the fourth ventricle which has also slightly pr ogressed. However, no hydrocephalus at this time. 3. The additional punctate enhancing lesion seen on the prior brain MRI are no longer present. ACT 112: Negative or not required by law. Electronically signed by: Mike Mackenzie M.D. 08/31/2021 12:46 PM
--- NOTE | 2021-08-31 14:25 | Hospitalist Progress Note ---
Date of Service August 31, 2021 Assessment & Plan (1) AMS (altered mental status): Plan: MRI brainprogression of lesion, small amount of hemorrhage, mass-effect but no hydro Follow Will consider MRI when more stabledo not expect will jacquard loom card changer actively if (2) Respiratory failure: Plan: Acute hypoxic respiratory failureappears secondary to PNA, probable aspiration Switch to Zosyn, critical care medicine agrees (3) Aspiration pneumonia: Plan: Continue Zosyn, as above; n.p.o. at present, speech therapy note from yesterday noted but discussed with that at present n.p.o. status is recommended and appropriate and he concurred (4) Acute encephalopathy: Plan: Prior notes noted; while reasonable to avoid benzodiazepine and use Haldol as needed for agitation at present picture does not suggest toxic encephalopathy (5) UTI (urinary tract infection): Plan: Noted GNR in urine, Zosyn should cover; uncertain if true UTI versus asymptomatic catheter induced bacteriuria (6) Anorexia: Plan: Severe protein-calorie malnutrition At present n.p.o. due to aspiration risk; depending on course and goals could n eed tube feeding if they desire but for the moment changed to glucose containing fluids to provide some calories (7) Constipation: Plan: Continue bowel regimen (8) Renal cell cancer: Plan: RCC with mets to brain and extensive LN mets Continue Axitinib PO BID- brought this medication from home. Rad/Onc discharge note noted f/u with Dr. Shipley Med/Onc after discharge (9) Brain metastasis: Plan: Radiation completed, as above (10) Diabetes: Plan: Hemoglobin A1c 5.6% Added SSI while on glucose containing fluids and steroids, adjust range and dosing as appropriate (11) Hypertension: Plan: At present adjust/hold meds as appropriate (12) Hypothyroidism: Plan: TSH mildly low at 0.04 on 08/19 restart home levothyroxine 12.5mcg every other day and would consider lowering the dose further-follow as outpt (13) Dementia: Plan: Mild supportive care Plan N.p.o. at present Will provide updated addendum as appropriate brought up history of esophageal dilation and requesting GI consultwill consider in a.m. Admission and Anticipated Discharge Date Admission Date: August 22, 2021 Subjective Follow-up of altered mental status, hypoxic respiratory failureoff oxygen but still essentially noncommunicative Physical Exam Physical Exam: Constitutional and general: Lethargic, noncommunicative Head and face: No puffiness, atraumatic Neck: Supple, no JVD Musculoskeletal: No acute joint swelling, no bony abnormalities Skin/dermatologic/integument: No rash, no purpura Gastrointestinal/abdomen: Nondistended, soft, nonacute Cardiovascular: Heart rhythm regular, no rub, no murmur, no gallop Respiratory: Chest movements equal, mild use of accessory muscles, decreased breath sounds right base Extremities: + edema, no cyanosis Neurologiccannot discern any focal deficit Results & Data Results & Data ([facility]) Vital Signs (Past 12 Hours) Vital Signs Temp Pulse Pulse Resp BP Pulse Ox O2 Del Method 08/31/21 13:59 50 L 16 93 Room Air 08/31/21 06:53 36.3 C L 75 16 159/83 H 96 Room Air Laboratory Results Laboratory Results - last 24 hr 08/30/21 08/30/21 08/31/21 18:03 23:54 06:11 WBC RBC Hgb Hct MCV MCH MCHC RDW Std Deviation RDW Coeff of Dez Plt Count MPV Immature Gran % (Auto) Neut % (Auto) Lymph % (Auto) [place] % (Auto) Eos % (Auto) Baso % (Auto) Neut # (Auto) Lymph # (Auto) [place] # (Auto) Eos # (Auto) Baso # (Auto) Immature Gran # (Auto) Echinocytes Sodium Potassium Chloride Carbon Dioxide Anion Gap BUN Creatinine Est Cr Clr Drug Dosing Est GFR ( Amer) Est GFR (Non-Af Amer) BUN/Creatinine Ratio Glucose POC Glucose 139 H 216 H 177 H Calcium Phosphorus Magnesium Total Bilirubin AST ALT Alkaline Phosphatase Total Protein Albumin Globulin Albumin/Globulin Ratio 08/31/21 08/31/21 08/31/21 06:26 06:26 07:54 WBC 7.45 RBC 4.19 Hgb 11.4 L Hct 33.4 L MCV 79.7 L MCH 27.2 MCHC 34.1 RDW Std Deviation 39.8 RDW Coeff of Dez 14.1 Plt Count 96 L MPV 9.5 Immature Gran % (Auto) 0.4 Neut % (Auto) 92.1 Lymph % (Auto) 4.0 [place] % (Auto) 3.5 Eos % (Auto) 0.0 Baso % (Auto) 0.0 Neut # (Auto) 6.86 H Lymph # (Auto) 0.30 L [place] # (Auto) 0.26 Eos # (Auto) 0.00 Baso # (Auto) 0.00 Immature Gran # (Auto) 0.03 H Echinocytes 1+ Sodium 138 Potassium 3.3 L D Chloride 110 H Carbon Dioxide 22 Anion Gap 6 BUN 11 Creatinine 0.54 L Est Cr Clr Drug Dosing 65.2 Est GFR ( Amer) 110.0 Est GFR (Non-Af Amer) 94.9 BUN/Creatinine Ratio 20.4 H Glucose 195 H POC Glucose 174 H Calcium 8.2 L Phosphorus 1.4 L* D Magnesium 1.6 L Total Bilirubin 0.7 AST 13 ALT 15 Alkaline Phosphatase 58 Total Protein 4.7 L D Albumin 2.6 L Globulin 2.1 L Albumin/Globulin Ratio 1.2 08/31/21 13:03 WBC RBC Hgb Hct MCV MCH MCHC RDW Std Deviation RDW Coeff of Dez Plt Count MPV Immature Gran % (Auto) Neut % (Auto) Lymph % (Auto) [place] % (Auto) Eos % (Auto) Baso % (Auto) Neut # (Auto) Lymph # (Auto) [place] # (Auto) Eos # (Auto) Baso # (Auto) Immature Gran # (Auto) Echinocytes Sodium Potassium Chloride Carbon Dioxide Anion Gap BUN Creatinine Est Cr Clr Drug Dosing Est GFR ( Amer) Est GFR (Non-Af Amer) BUN/Creatinine Ratio Glucose POC Glucose 167 H Calcium Phosphorus Magnesium Total Bilirubin AST ALT Alkaline Phosphatase Total Protein Albumin Globulin Albumin/Globulin Ratio PG Care Time/CCT Total # of Minutes Spent Total Time Spent with Patient: Total time spent is greater than 50% in coordination of care (as documented) at patient's floor/unit and/or counseling patient: Coding Diagnoses AMS (altered mental status) R41.82 Respiratory failure J96.90 Aspiration pneumonia J69.0 Acute encephalopathy G93.40 UTI (urinary tract infection) N39.0 Anorexia R63.0 Constipation K59.00 Renal cell cancer C64.9 Brain metastasis C79.31 Diabetes E11.9 Hypertension I10 Hypothyroidism E03.9 Dementia F03.90
[2021-08-31] MEDS: POTASSIUM CHLORIDE 20 MEQ in DEXTROSE 5% 1,000 ML IV SCH (15:44)
--- NOTE | 2021-08-31 16:25 | Discharge Summary ---
Date of Service August 31, 2021 Admission HPI Per Admitting Provider This is a pleasant 70-year-old female with history of brain metastasis to the juan c receiving radiation therapy, patient has renal cell carcinoma, patient also has dementia. Patient presents to the hospital with worsening weakness and confusion. It appears patient's oral intake has also been aproblem and this was discussed in her last hospital stay. Over the past few weeks, the patient has had a decrease in her appetite. Prior to this past week, her intake was close to 1000 calories a day as per her . But these past few days (about 6-7 days), her appetite has decreased significantly and is having less than 500 calories a day. States that she has been bedridden for the past 2 days. And she has been incontinent of urine and not being aware of when she needs to urinate. Her states that this is a change. reports that in the past patient has required esophageal dilatations over at [facility]. Her states that she has been complaining of food being stuck by the lower third of her sternum. However, he is not sure if this complaint is real, or if she is confused given that the complaint is intermittent. In regards to her diet, her reports that she likes potatoes and fruit. He reports that she is a full code. Principal Diagnosis Metastatic renal cell carcinoma, pontine metastasis, altered mental status Discharge Exam Nonresponsive to my assessment (family could get her to answer no for headache) Chestdecreased breath sounds right base Edema Vital Signs Temp Pulse Pulse Resp BP Pulse Ox O2 Del Method 08/31/21 16:08 36.4 C L 57 L 14 170/90 H 96 Room Air 08/31/21 13:59 50 L 16 93 Room Air 08/31/21 06:53 36.3 C L 75 16 159/83 H 96 Room Air 08/30/21 20:00 Room Air 08/30/21 23:26 35.9 C L 74 16 145/80 H 96 Room Air 08/30/21 20:16 80 18 96 Room Air Intake and Output 08/31/21 08/31/21 08/31/21 06:59 14:59 22:59 Intake Total 1220 / 2958.75 1315 / 1825 510 / 1825 Output Total 1200 / 1550 800 / 800 Balance 20 / 1408.75 1315 / 1025 -290 / 1025 Intake: IV 1220 / 2518.75 1315 / 1825 510 / 1825 D5w and Nss 1,000 ml @ 80 mls/ 1000 / 1000 1000 / 1000 hr IV .[id number] [facility] Rx#:[id number] Magnesium Sulfate / D5w 1 gm In 200 / 200 100 ml @ 50 mls/hr IV Q2H [facility] Rx#:[id number] Piperacillin/Tazobactam 3.375 115 / 230 115 / 115 gm In Dextrose 5% 100 ml @ 28. 75 mls/hr IV Q8H [facility] Rx#: [id number] Potassium Phosphate 30 mmol In 510 / 510 Sodium Chloride 0.9% 500 ml @ 88 mls/hr IV ONE ONE Rx#: [id number] levETIRAcetam 500 mg In 0.9 % 105 / 315 Sodium Chloride 100 ml @ 420 mls/hr IV Q12H [facility] Rx#:[id number] Output: Urine Amount (Catheter) 1200 / 1550 800 / 800 Chavez/Indwelling 1200 / 1550 800 / 800 Other: Other Intake Source NPO Weight 50.3 kg Patient Weight 09/01/21 06:59 Weight 50.3 kg Discharge Data Allergies Allergy/AdvReac Type Severity Reaction Status Date / Time diazepam [From Valium] AdvReac Intermediate Agitated Verified 08/23/21 14:07 lorazepam AdvReac Intermediate Agitated Verified 08/23/21 14:07 Consultations 08/22/21 13:19 ED Decision to Admit Stat 08/27/21 13:56 Consult Palliative Care Routine 08/28/21 15:57 Consult Oncology Routine 08/29/21 08:55 Consult [place] Routine 08/29/21 09:03 Consult [place] Routine 08/31/21 14:34 Radiology Transfer Of Images Stat Ordered Studies 08/22/21 11:55 CT head/brain wo con Stat 08/29/21 10:59 CT angio chest PE protocol Stat 08/31/21 10:44 MRI Brain [MR brain wo/w con] Urgent Hospital Course (1) AMS (altered mental status): Repeat MRI reports enlarging pontine lesion with small amount of hemorrhage and mass-effect; no hydrocephalus; communicated with oncology; consider tertiary care referral for consideration of surgical resection; communicated with [facility] neurosurgery; they felt it is possible enlargement secondary to radiation effect; recommended MRI perfusion scan (not feasible here); also commented that enlargement could be progression prior to radiation; they felt transfer there to medicine under further care where they will evaluate along with a multi D approach; accepted by Dr. Dave; family very interested in transfer Of note, EEG suggested possible seizure activity and is on Keppra; should obtain formal neurology consultation (2) Aspiration pneumonia: On Zosyn and on room air; responding in this regardcontinue IV Zosyn, today day 2 (3) UTI (urinary tract infection): Pseudomonas in urine, sensitive to Zosyn; could be asymptomatic bacteriuria but in any case Zosyn should cover (4) Anorexia: Extremely poor intake prior and now n.p.o.; unless improves should start tube feeding imminently (5) Constipation: Bowel regimen (6) Renal cell cancer: As above, finished radiation to brain metastases; on 08/19 began systemic therapy with pembrolizumab/axitinib Oncology did comment that too early to see therapy effect (7) Brain metastasis: On IV steroidsdexamethasone 4 mg every 6 hours; s/p radiation, see #1 and #6 (8) Diabetes: SSI; A1c 5.6; currently on steroids and glucose containing fluids4 SSI (9) Hypertension: Follow clinically at present n.p.o. (10) Hypothyroidism: Recent TSH mildly low at 0.04; continue home dose of 12.5 mcg every other day when able (11) Dementia: Continue donezepil when able (12) Electrolyte abnormality: Replace as appropriatephosphate and magnesium replacement today (13) Dysphagia: Did have complaints of dysphagia with food sticking; prior history of esophagus dilation; GI consultation when mental status better would be most appropriate Plan Transfer to [facility] Total Time Total Time Spent Total Time Spent (In Minutes): 45 Discharge Plan Discharge Items Patient Disposition: Transfer Acute Care Hospital Reason For Visit: ALTERED MENTAL STATUS Discharge Diagnosis: Metastatic renal cell carcinoma with pontine metastases and altered mental status Activity: As commented below Non-emergency contact: Primary Care Provider and Oncologist Call non-emergency contact if: your symptoms worsen Follow-up/Referrals: Vijay Daiz MD [Primary Care Provider] - Diet: Nothing by Mouth Addtl Attending Provider Instructions: Being transferred to higher level of care; discharge instructions after completion of management at tertiary care Pending Studies at Discharge: No Stand-Alone Forms: My [facility] Skilled Items Patient informed of condition?: Yes DNR: No Discharge Level of Care: Other Communicable Disease: No Discharge Prognosis: Deteriorating Lines: Peripheral IV Urinary Catheter: Yes Medications and DC Order Prescriptions: New acetaminophen [Ofirmev] 1,000 mg/100 mL (10 mg/mL) Solution 1,000 mg IV Q12H PRN (Reason: fever or pain) Qty: 1000 0RF bisacodyl 10 mg Suppository 10 mg SD DAILY PRN (Reason: constipation) Qty: 12 0RF ondansetron HCl (PF) 4 mg/2 mL Solution 4 mg IV Q4H PRN (Reason: nausea and vomiting) Qty: 20 0RF lidocaine 5 % Adhesive Patch,Medicated 2 patch transdermal QAM Qty: 15 0RF Continued levothyroxine 25 mcg capsule 12.5 mcg PO Q OTHER DAY famotidine [Acid Hand Stripper (famotidine)] 10 mg tablet 10 mg PO BID phenazopyridine [Pyridium] 200 mg tablet 200 mg PO Q8H PRN (Reason: pain) Qty: 10 0RF tamsulosin 0.4 mg capsule 0.4 mg PO HS Qty: 30 0RF simvastatin 20 mg Tablet 20 mg PO HS donepezil 10 mg tablet 10 mg PO HS pantoprazole [Protonix] 40 mg tablet,delayed release (DR/EC) 40 mg PO BID 30 Days Qty: 60 0RF Inlyta 5 mg tablet 5 mg PO BID Discontinued lorazepam 0.5 mg tablet 0.5 mg buccal .COMPLEX Qty: 3 0RF Rx Instructions: Take 1 pill 1 hour prior to radiation treatment. lorazepam 0.5 mg tablet 0.5 mg PO .COMPLEX PRN (Reason: anxiety) Qty: 4 0RF Rx Instructions: 0.5 mg PO as directed PRN; Take two pill one hour prior to radiation. Bring additional 2 pills to radiation. diazepam [Valium] 5 mg tablet 5 mg PO .COMPLEX PRN (Reason: anxiety) Qty: 3 0RF Rx Instructions: 5 mg orally PRN; take 1 pill 3 hours prior to radiation treatment. Repeat in 1 hour if needed. Bring the third pill to radiation therapy. mirtazapine 15 mg Tablet 15 mg PO HS lisinopril 20 mg tablet 20 mg PO QAM ondansetron 4 mg tablet,disintegrating 4 - 8 mg PO Q8H PRN (Reason: nausea and vomiting) Qty: 14 0RF atenolol 50 mg tablet 50 mg PO BID dexamethasone 4 mg tablet 4 mg PO TID Rx Instructions: tapering down Discharge Orders: Discharge Order (Routine); Ordered 08/31/21 Ordered By: Milind Max Admission Data Admit Date/Time: 08/22/21 14:08 Attending Provider: Milind Max Admit Provider: Michael Khan Primary Care Provider: Vijay Diaz Other Providers: [facility],Home [facility] ; Maximus Elizabeth ; Zoey Charles ; Makayla Shipley Coding Level of Care Code D/C DAY MANAGEMENT >30 MINS Diagnoses AMS (altered mental status) R41.82 Aspiration pneumonia J69.0 UTI (urinary tract infection) N39.0 Anorexia R63.0 Constipation K59.00 Renal cell cancer C64.9 Brain metastasis C79.31 Diabetes E11.9 Hypertension I10 Hypothyroidism E03.9 Dementia F03.90 Electrolyte abnormality E87.8 Dysphagia R13.10
[2021-08-31] MEDS: SIMVASTATIN 20 MG TAB PO SCH (21:30)
[2021-09-01] MEDS: INSULIN ASPART PER UNIT SC SCH ×4 (00:37→17:58)
[2021-09-01] MEDS: PIPERACILLIN/TAZOBACTAM 3.375 GM in DEXTROSE 5% 100 ML IV SCH ×2 (03:33→12:26)
[2021-09-01] MEDS: AXITINIB PO SCH ×2 (05:16→16:19)
[2021-09-01] MEDS: dexAMETHasone 4 MG in SYRINGE 0 ML IV SCH ×3 (05:17→17:54)
[2021-09-01] MEDS: levETIRAcetam 500 MG in 0.9 % SODIUM CHLORIDE 100 ML IV SCH ×2 (05:17→16:34)
[2021-09-01] MEDS: POTASSIUM CHLORIDE 20 MEQ in DEXTROSE 5% 1,000 ML IV SCH (05:25)
[2021-09-01 06:31] LABS: Basophils # (auto) 0.01 K/uL (0-0.2); Basophils % (auto) 0.1 %; Hematocrit (blood only) 35.8 % (34.1-44.9); Hemoglobin 12.5 g/dl (12.0-16.0); Immature Granulocytes # (auto) 0.12 K/uL (0.00-0.02); Immature Granulocytes % (auto) 1.3 %; Lymphocytes # (auto) 0.42 K/uL (1.2-3.4); Lymphocytes % (auto) 4.6 %; Mean Corpuscular Hemoglobin 27.5 pg (25.0-34.0); Mean Corpuscular Hgb Conc 34.9 g/dL (32.0-36.0); Mean Corpuscular Volume 78.7 fL (80.0-100.0); Mean Platelet Volume 9.4 fL (9.4-12.3); Monocytes # (auto) 0.37 K/uL (0.24-0.82); Neutrophils # (auto) 8.23 K/uL (1.4-6.5); Platelet Count 119 K/uL (130-400); RDW Coefficient of Variation 14.7 % (11.5-14.5); RDW Standard Deviation 40.2 fL (36.4-46.3); Red Blood Count 4.55 M/uL (3.93-5.22); White Blood Count 9.15 K/ul (4.8-10.8)
[2021-09-01 06:55] LABS: Potassium 3.8 mmol/L (3.5-5.1)
[2021-09-01] MEDS: ALBUTEROL 0.083% NEBU SOLN 3 ML VIAL NEB SCH ×2 (07:30→13:40)
[2021-09-01] MEDS: SODIUM CHLOR 7% 4 ML NEB NEB SCH (07:30)
[2021-09-01 07:44] LABS: Albumin Globulin Ratio 1.2 (0.9-2); Albumin Level 2.7 gm/dl (3.4-5.0); BUN Creatinine Ratio 18.5 (10-20); Bilirubin,Total 0.8 mg/dl (0.2-1.0); Calcium 8.1 mg/dl (8.5-10.1); Creatinine Clr Calc Pharmacy 65.2 ml/min; Est GFR (Non-African American) 94.9 ml/min; Globulin 2.3 gm/dl (2.5-4.0); Phosphorus 2.1 mg/dl (2.5-4.9)
[2021-09-01] MEDS: DOCUSATE SODIUM/SENNA 50/8.6MG TAB PO SCH (10:01)
[2021-09-01] MEDS: LIDOCAINE 5% 1 PATCH TD SCH (10:02)
[2021-09-01] MEDS: PANTOprazole 40 MG in SYRINGE 0 ML IV SCH (10:03)
[2021-09-01 15:21] VITALS: PULSE 101; TEMP 97.9; O2SAT 96
[2021-09-01 18:40] VITALS: BP 126/85
[2021-09-01] MEDS ORDERED: POTASSIUM CHLORIDE 10 MEQ in DEXTROSE 5% 1,000 ML IV SCH (20:15)
== END 2021-09-01 20:28 | disposition short-term general hospital (02) | DRG 54 ==
LOC: ED 11:10 → EDINP 14:08 → SUATTDRO 14:08 → 3N 16:03 → 1E 08-29 07:34 → 3N 08-30 13:46